=== PATIENT | male | born 1955 | race Caucasian/White ===

== ENCOUNTER 2019-06-11 07:32 | Inpatient (IN) ==
[2019-06-11] MEDS ORDERED: LIDOCAINE 2% JELLY 5 ML TUBE EXT ONE (08:07)
--- NOTE | 2019-06-11 08:37 | Emergency Department Note ---
History of Present Illness General Chief complaint: Urinary Symptoms Stated complaint: ABD PAIN, TROUBLE MAKING WATER Time Seen by Provider: 06/11/19 07:59 History of Present Illness Maximum Pain Intensity: 0 Patient is a 64-year-old male who presents the emergency department accompanied by his for evaluation of lower abdominal discomfort x1 week, and inability to void since last evening around 6 PM. Patient reports diffuse lower abdominal discomfort, right worse than left, for the last week. It has not been that painful. He denies that it changed his ability to eat or drink. He denies any associated nausea or vomiting. No changes in his bowel habits. Patient states that last time he urinated was 1800 last evening, he has subsequently only had a few trickles over the last 13 hours. He does report pressure and the urge to void. He had a small bowel movement this morning that was normal for him, he states that it was a little bit soft, but nonbloody and non-melanotic. He denies any chest pain, palpitations or shortness of breath. No urinary symptoms including dysuria, frequency or urgency prior to the retention that started last evening. He admittedly does not follow with the primary care provider, is unsure whether he could have any prostate issues. He denies any history of abdominal surgeries. He does have a history of PR and cardiac stents, he is supposed to be on multiple medications including aspirin, atorvastatin, Plavix, lisinopril and metoprolol, but stopped these medications because he states that he did not like how they made him feel. He did not talk to his doctor prior to stopping his medications. Home Medications Home Medications Medication Instructions Recorded Confirmed Type aspirin [Aspirin Low Dose] 0 mg PO DAILY 06/11/19 06/11/19 History Allergies Allergy/AdvReac Type Severity Reaction Status Date / Time No Known Allergies Allergy Verified 06/11/19 08:50 Past Med/Surg History Medical History Dyslipidemia (Chronic) Hypertension (Chronic) Coronary artery disease (Chronic) History of [place] (myocardial infarction) (Resolved) Surgical History History of tonsillectomy (Resolved) History of ankle surgery (Resolved) History of heart artery stent (Resolved) Family History Other CAD (coronary atherosclerotic disease) Prostate cancer Social History Feels Safe at Home: Yes Smoking Status: Current every day smoker Review of Systems A total of 10 systems reviewed and were otherwise negative Physical Exam Vital Signs Vital Signs - 24 hr 06/11/19 07:45 06/11/19 09:27 06/11/19 09:52 Temperature 36.5 C Temperature Source Oral Sepsis Recent Fever Within 48 Hours No Sepsis Action Taken by Nursing No Action Required Pulse Rate 20 L Pulse Rate [Finger] 76 78 Respiratory Rate 20 16 16 Respiratory Effort / Characteristics Non-Labored Non-Labored Respiratory Depth Normal Normal Blood Pressure 191/103 H Blood Pressure [Right Arm] 166/99 H 141/88 H Blood Pressure Mean 132 Blood Pressure Mean [Right Arm] 121 105 Pulse Oximetry 96 95 96 Oxygen Delivery Method Room Air Room Air 06/11/19 11:00 06/11/19 11:30 06/11/19 11:52 Temperature Temperature Source Sepsis Recent Fever Within 48 Hours Sepsis Action Taken by Nursing Pulse Rate 76 71 68 Pulse Rate [Finger] Respiratory Rate 18 14 Respiratory Effort / Characteristics Respiratory Depth Blood Pressure 159/100 H 155/94 H 154/100 H Blood Pressure [Right Arm] Blood Pressure Mean 119 114 118 Blood Pressure Mean [Right Arm] Pulse Oximetry 97 97 97 Oxygen Delivery Method Room Air Room Air Room Air CONSTITUTIONAL: Patient is a well-appearing 64-year-old male who is awake and alert and in no acute distress. EYES: Pupils equal, round, reactive to light and accommodation. EOMs intact without nystagmus. Sclera are anicteric. ENT: Tympanic membranes intact, with normal landmarks. External canals are clear. Oral and nasopharynx are clear. Mucous membranes are moist, no lesions, tongue and gums appear normal. CARDIOVASCULAR: Regular rate and rhythm, with normal S1 and S2, no murmur or gallop or rub is heard. No carotid bruits auscultated. No JVD. Peripheral pulses easy to palpable. RESPIRATORY: Breath sounds equal and clear to auscultation without wheezes, rales, or rhonchi heard. Full and equal chest expansion without accessory muscle use or retractions. GI: Bowel sounds are present. Abdomen is soft, mildly distended, tender to percussion through the out the right upper and right lower quadrants. He is tender to palpation in the right midabdomen, no guarding, rebound or rigidity. MUSCULOSKELETAL: Full range of motion of extremities x 4 with good strength. No cyanosis, edema, joint tenderness or swelling. No deformity. INTEGUMENTARY: No lesions or rash, normal skin turgor. NEUROLOGICAL: Alert, oriented, and cooperative. Cranial nerves, sensation and strength grossly intact. Pupils round, equal, and react to light, EOMs are full. LYMPH: No lymphadenopathy. Course The patient was seen and assessed as above. He presents the emergency department with inability to eat void times roughly 13 hours with lower abdominal discomfort. He was seen and assessed by myself in the exam room. Nursing staff performed a bedside bladder scan, with only 23 cc of urine in the bladder. Pendleton catheter was canceled. IV lock was initiated and laboratory studies were collected. CBC with differential, CMP and urinalysis were ordered. The patient did not provide a urine for analysis while in the emergency depar tment. Laboratory studies noted a normal white count at 6600, no left shift or bandemia. H&H is 14.7 and 41.7. The platelet count is 159,000. Electrolytes: Sodium 133, potassium 4.8, chloride 103, carbon dioxide 16, BUN 69 and creatinine 9.2. Transaminases are not elevated. A noncontrast CT scan of the abdomen and pelvis was ordered to evaluate for the patient's abdominal pain. Abnormal laboratory studies were discussed with attending physician, EKG was performed, and IV hydration was initiated. CT scan noted low-density fluid around the right kidney and in the right retroperitoneal space. There is associated mild right and moderate left hydronephrosis, and a diffusely thickened bladder. Findings were concerning for a right-sided forniceal rupture diffuse thickened bladder wall noted. Multifocal osteoblastic lesions seen throughout the visualized osseous structures suspicious for metastatic disease. There is no bowel wall thickening or obstruction. Normal appendix. Diagnostic imaging studies were discussed with attending physician, and all laboratory studies and imaging studies were reviewed with the patient and his spouse. Consultation was placed with Dr. Alexandre who was on-call for urology. Given the acute kidney injury, and findings on CT, he will take the patient to the OR for cystoscopy and stenting. Please refer to his urologic consultation for further information. I did discuss the patient with the [facility] Hospitalist Service for further care and management as an inpatient, the patient was reviewed with Dr. Velasquez. Administered Medications Discontinued Medications Sodium Chloride (Nss 1000ml) 1,000 mls @ 999 mls/hr IV .Q1H1M JOCELYN Stop: 06/11/19 10:39 Last Infusion: 06/11/19 11:25 Dose: 0 mls/hr Documented by: [id number] Admin: 06/11/19 09:45 Dose: 999 mls/hr Documented by: [id number] Iothalamate Meglumine (Cysto-Conray Ii) Confirm Administered Dose 250 ml .ROUTE .STK-MED ONE Stop: 06/11/19 12:32 Last Admin: 06/11/19 13:37 Dose: 150 ml Documented by: [id number] Lidocaine HCl (Xylocaine 2% Jelly) 5 ml EXT NOW ONE Stop: 06/11/19 08:08 Last Admin: 06/11/19 08:28 Dose: Not Given Documented by: [id number] Medical Decision Making Differential Diagnosis Differential diagnoses entertained included UTI, cystitis, acute urinary retention, pyelonephritis, renal colic, mass or malignancy, bowel obstruction, electrolyte or metabolic abnormality, among others. Medical Records Attestation: I reviewed the patient's medical records. Home Medications Current Medication List: was personally reviewed by me Laboratory Data Attestation: I reviewed the patient's lab results. Result diagrams: 06/11/19 08:45 06/11/19 08:45 Lab Results 06/11/19 06/11/19 Range/Units 08:45 08:45 WBC 6.61 (4.8-10.8) K/uL RBC 4.88 (4.7-6.1) M/uL Hgb 14.7 (14.0-18.0) g/dL Hct 41.7 L (42-52) % MCV 85.5 (80-100) fL MCH 30.1 (25-34) pg MCHC 35.3 (32-36) g/dL RDW Std Deviation 39.3 (36.4-46.3) fL RDW Coeff of Kurtis 12.7 (11.5-14.5) % Plt Count 159 (130-400) K/uL MPV 9.1 (7.4-10.4) fL Immature Gran % (Auto) 0.2 % Neut % (Auto) 76.5 % Lymph % (Auto) 13.3 % Lenoir % (Auto) 7.4 % Eos % (Auto) 2.0 % Baso % (Auto) 0.6 % Immature Gran # (Auto) 0.01 (0.00-0.02) K/uL Neut # (Auto) 5.06 (1.4-6.5) K/uL Lymph # (Auto) 0.88 L (1.2-3.4) K/uL Lenoir # (Auto) 0.49 (0.11-0.59) K/uL Eos # (Auto) 0.13 (0-0.5) K/uL Baso # (Auto) 0.04 (0-0.2) K/uL Sodium 133 L (136-145) mmol/L Potassium 4.8 (3.5-5.1) mmol/L Chloride 103 (98-107) mmol/L Carbon Dioxide 16 L (21-32) mmol/L Anion Gap 14.0 H (3-11) BUN 69 H (7-18) mg/dl Creatinine 9.20 H* (0.6-1.4) mg/dl Est Cr Clr Drug Dosing Not Reportable Est GFR ( Amer) 6.2 Est GFR (Non-Af Amer) 5.3 BUN/Creatinine Ratio 7.5 L (10-20) Glucose 89 (70-99) mg/dl Calcium 9.7 (8.5-10.1) mg/dl Total Bilirubin 0.6 (0.2-1) mg/dl AST 10 L (15-37) U/L ALT 14 (12-78) U/L Alkaline Phosphatase 106 (45-117) U/L Total Protein 6.8 (6.4-8.2) gm/dl Albumin 3.7 (3.4-5.0) gm/dl Globulin 3.1 (2.5-4.0) gm/dl Albumin/Globulin Ratio 1.2 (0.9-2) Imaging Data Attestation: I personally reviewed and interpreted this imaging study as follows: Radiologist's Impression: ABDOMEN AND PELVIS CT WITHOUT CONTRAST CT DOSE: 1588.51 mGy.cm HISTORY: RIGHT ABD PAIN X ONE WEEK TECHNIQUE: Multiaxial CT images of the abdomen and pelvis were performed without contrast. A dose lowering technique was utilized adhering to the principles of ALARA. COMPARISON STUDY: None. FINDINGS: Trace right pleural effusion. Small hiatus hernia. No pneumoperitoneum. No pneumatosis. A 1.4 cm sclerotic focus within the left femoral head. There are 2 sclerotic foci within the T12 vertebral body measuring 1.5 and 1.1 cm. There is a 1.5 severe sclerotic focus within the T10 vertebral body. A 2.2 cm sclerotic focus within the proximal left femur. Multiple additional sclerotic foci within the pelvic bones are noted. Findings are highly suspicious for osteoblastic metastatic disease. Subendocardial fat within the left ventricular apex consistent with an old infarct. There are are a few subcentimeter hypodense lesions within the liver with the largest in the caudate lobe measuring 9 mm. These are technically too small to characterize but favor cysts. The unenhanced spleen, adrenal glands, and pancreas are unremarkable. There is a punctate stone within the gallbladder. No retroperitoneal lymphadenopathy. The bladder is completely decompressed but demonstrates a diffusely thickened wall. There is moderate left hydroureteronephrosis to the level of the ureterovesical junction. There is mild right hydronephrosis. No ureteral stones. There is a 5.4 cm exophytic hypodense lesion within the lower pole the right kidney. This is technically indeterminate on this noncontrast study but favors a cyst. There is a moderate amount of low-density right perinephric fluid which extends into the right retroperitoneal space. There is also a moderate amount of fluid within the extraperitoneal space anterior to the bladder and tracking of the left retroperitoneal space. No renal calculi. Small amount of ascites seen scattered throughout the abdomen. No bowel wall thickening or obstruction. Colonic diverticulosis. Normal appendix. IMPRESSION: 1. Moderate low-density fluid primarily surrounding the right kidney and extending into the right retroperitoneal space. This extends into the extraperitoneal space anterior to the bladder and within the left retroperitoneal space. There is also a small amount of scattered ascites. Given the mild right and moderate left hydronephrosis to the level of the diffusely thickened bladder, findings favor a right-sided forniceal rupture resulting in the partial decompression of the right renal collecting system. Therefore, the fluid likely represents urine. 2. Diffusely thickened bladder wall. Follow-up cystoscopy recommended to exclude an underlying bladder mass resulting in the bilateral hydronephrosis. 3. Multifocal osteoblastic lesion seen scattered throughout the visualized osseous structures suspicious for metastatic disease. Follow-up bone scan is recommended for further evaluation. 4. Trace right pleural effusion. Blood Pressure Blood Pressure Findings: Elevated blood pressure Blood Pressure Disposition: further management by hospitalist MICHELLE Narrative See ED Course. Impression & Plan Acute renal failure, Perinephric fluid collection, Hydronephrosis, bilateral Discharge Plan Visit Data *Final* Discharge Date/Time: 06/11/19 11:54 Chief Complaint: Urinary Symptoms Stated Complaint: ABD PAIN, TROUBLE MAKING WATER ED Provider: Celia Land ED Midlevel Provider: Stoney Olivares Discharge Problem: Acute renal failure, Perinephric fluid collection, Hydronephrosis, bilateral Patient Disposition: Still a Patient Discharge Instructions Interventions: ED Discharge Assessment Last Done: 06/11/19 11:54
[2019-06-11 08:53] LABS: Basophils # (auto) 0.04 K/uL (0-0.2); Basophils % (auto) 0.6 %; Eosinophils # (auto) 0.13 K/uL (0-0.5); Hematocrit (blood only) 41.7 % (42-52); Hemoglobin 14.7 g/dL (14.0-18.0); Immature Granulocytes # (auto) 0.01 K/uL (0.00-0.02); Immature Granulocytes % (auto) 0.2 %; Lymphocytes # (auto) 0.88 K/uL (1.2-3.4); Lymphocytes % (auto) 13.3 %; Mean Corpuscular Hemoglobin 30.1 pg (25-34); Mean Corpuscular Hgb Conc 35.3 g/dL (32-36); Mean Corpuscular Volume 85.5 fL (80-100); Mean Platelet Volume 9.1 fL (7.4-10.4); Monocytes # (auto) 0.49 K/uL (0.11-0.59); Monocytes % (auto) 7.4 %; Neutrophils # (auto) 5.06 K/uL (1.4-6.5); Neutrophils % (auto) 76.5 %; Platelet Count 159 K/uL (130-400); RDW Coefficient of Variation 12.7 % (11.5-14.5); RDW Standard Deviation 39.3 fL (36.4-46.3); Red Blood Count 4.88 M/uL (4.7-6.1); White Blood Count 6.61 K/uL (4.8-10.8)
[2019-06-11 09:23] LABS: Alanine Aminotransferase 14 U/L (12-78); Albumin Globulin Ratio 1.2 (0.9-2); Albumin Level 3.7 gm/dl (3.4-5.0); Alkaline Phosphatase 106 U/L (45-117); Aspartate Aminotransferase 10 U/L (15-37); BUN Creatinine Ratio 7.5 (10-20); Bilirubin,Total 0.6 mg/dl (0.2-1); Blood Urea Nitrogen 69 mg/dl (7-18); Calcium 9.7 mg/dl (8.5-10.1); Carbon Dioxide 16 mmol/L (21-32); Chloride 103 mmol/L (98-107); Est GFR (African American) 6.2; Est GFR (Non-African American) 5.3; Globulin 3.1 gm/dl (2.5-4.0); Glucose 89 mg/dl (70-99); Potassium 4.8 mmol/L (3.5-5.1); Sodium 133 mmol/L (136-145); Total Protein 6.8 gm/dl (6.4-8.2)
[2019-06-11] MEDS ORDERED: SODIUM CHLORIDE 0.9% 1000ML 1,000 ML IV SCH (09:39)
--- NOTE | 2019-06-11 10:50 | CT Scan Report ---
ABDOMEN AND PELVIS CT WITHOUT CONTRAST CT DOSE: 1588.51 mGy.cm HISTORY: RIGHT ABD PAIN X ONE WEEK TECHNIQUE: Multiaxial CT images of the abdomen and pelvis were performed without contrast. A dose lo wering technique was utilized adhering to the principles of ALARA. COMPARISON STUDY: None. FINDINGS: Trace right pleural effusion. Small hiatus hernia. No pneumoperitoneum. No pneumatosis. A 1 .4 cm sclerotic focus within the left femoral head. There are 2 sclerotic foci within the T12 vertebr al body measuring 1.5 and 1.1 cm. There is a 1.5 severe sclerotic focus within the T10 vertebral body . A 2.2 cm sclerotic focus within the proximal left femur. Multiple additional sclerotic foci within the pelvic bones are noted. Findings are highly suspicious for osteoblastic metastatic disease. Suben docardial fat within the left ventricular apex consistent with an old infarct. There are are a few ponce bcentimeter hypodense lesions within the liver with the largest in the caudate lobe measuring 9 mm. T hese are technically too small to characterize but favor cysts. The unenhanced spleen, adrenal glands , and pancreas are unremarkable. There is a punctate stone within the gallbladder. No retroperitoneal lymphadenopathy. The bladder is completely decompressed but demonstrates a diffusely thickened wall. There is moderate left hydroureteronephrosis to the level of the ureterovesical junction. There is m ild right hydronephrosis. No ureteral stones. There is a 5.4 cm exophytic hypodense lesion within the lower pole the right kidney. This is technically indeterminate on this noncontrast study but favors a cyst. There is a moderate amount of low-density right perinephric fluid which extends into the righ t retroperitoneal space. There is also a moderate amount of fluid within the extraperitoneal space an terior to the bladder and tracking of the left retroperitoneal space. No renal calculi. Small amount of ascites seen scattered throughout the abdomen. No bowel wall thickening or obstruction. Colonic di verticulosis. Normal appendix. IMPRESSION: 1. Moderate low-density fluid primarily surrounding the right kidney and extending into the right ret roperitoneal space. This extends into the extraperitoneal space anterior to the bladder and within th e left retroperitoneal space. There is also a small amount of scattered ascites. Given the mild right and moderate left hydronephrosis to the level of the diffusely thickened bladder, findings favor a r ight-sided forniceal rupture resulting in the partial decompression of the right renal collecting sys tem. Therefore, the fluid likely represents urine. 2. Diffusely thickened bladder wall. Follow-up cystoscopy recommended to exclude an underlying bladde r mass resulting in the bilateral hydronephrosis. 3. Multifocal osteoblastic lesion seen scattered throughout the visualized osseous structures suspici ous for metastatic disease. Follow-up bone scan is recommended for further evaluation. 4. Trace right pleural effusion. Electronically signed by: Jose Luis Ahn M.D. 06/11/2019 10:48 AM
[2019-06-11] MEDS ORDERED: MIDAZOLAM HCL 1 MG/ML 2ML VIAL ONE (11:59)
[2019-06-11] MEDS ORDERED: LIDOCAINE HCL 2% 2 ML VIAL/AMP(20MG/ML) INFIL ONE (11:59)
[2019-06-11] MEDS ORDERED: fentaNYL citrate 100 MCG/2 ML VIAL ONE ×3 (11:59→16:29)
[2019-06-11] MEDS ORDERED: PROPOFOL IV EMULSION 10 MG/ML 20 ML VIAL IV ONE ×3 (11:59→12:56)
--- NOTE | 2019-06-11 12:03 | Anesthesiology Consultation ---
Date of Service June 11, 2019 Assessment & Plan (1) Encounter for pre-operative examination: History Surgery Operation Date: 06/11/19 12:00 Proposed Procedures p Cystoscopy - Eric Alexandre II, DO s Ureteral Stent Insertion/Removal - Eric Alexandre II, DO Height/Weight Weight: 107.1 kg Allergies Allergy/AdvReac Type Severity Reaction Status Date / Time No Known Allergies Allergy Verified 06/11/19 08:50 Medications Home Medications Medication Instructions Recorded Confirmed Last Taken aspirin [Aspirin Low Dose] 0 mg PO DAILY 06/11/19 06/11/19 Unknown Past Medical History Medical History Dyslipidemia (Chronic) Hypertension (Chronic) Coronary artery disease (Chronic) History of [place] (myocardial infarction) (Resolved) Past Family History Family History Other CAD (coronary atherosclerotic disease) Prostate cancer Past Surgical History Surgical History History of tonsillectomy (Resolved) History of ankle surgery (Resolved) History of heart artery stent (Resolved) Social History Smoking Status: Current every day smoker Physical Exam Vital Signs Last Vital Signs Temp 36.5 C 06/11/19 07:45 Pulse 68 06/11/19 11:52 Resp 14 06/11/19 11:30 BP 154/100 H 06/11/19 11:52 Pulse Ox 97 06/11/19 11:52 Testing Laboratory Results 06/11/19 08:45 06/11/19 08:45 Electrocardiogram Date: 06/11/19 NSR HR 77, LAD, inferior infarct age undetermined, anterolateral infarct age undetermined.
[2019-06-11] MEDS ORDERED: ONDANSETRON INJ 2 MG/ML 2 ML VIAL IV PRN ×2 (12:05→23:07)
[2019-06-11] MEDS ORDERED: ePHEDrine sulfate 50 MG/ML AMP IV PRN (12:05)
[2019-06-11] MEDS ORDERED: ATROPINE SULFATE 0.1 MG/ML 10ML SYR IV PRN (12:05)
[2019-06-11] MEDS ORDERED: HYDROmorphone INJ 1 MG/ML SYRINGE IV PRN (12:05)
--- NOTE | 2019-06-11 12:22 | Urology Consultation ---
Date of Consultation June 11, 2019 Assessment & Plan (1) Acute renal failure: See below (2) Hydronephrosis, bilateral: See Below (3) Perinephric fluid collection: Risks and benefits discussed at length with patient and were at bedside. Very concerning for obstruction. Unsure of source of obstruction. At this point also has lesions within bone and with strong family history of major concern for possible prostate cancer. Large amount of fluid along around the right kidney tracking down into the pelvis. Creatinine has jumped up to 9. Discussed options at length we will plan for cystoscopy with bilateral retrograde pyelograms and stent placements. And Pendleton placement. We will also plan to do rectal exam with possible biopsy depending on results. Patient understands all risks is willing to proceed. History of Present Illness Attending Physician: Eric Alexandre II, DO History of Present Illness Patient with sudden onset of acute urinary retention. Had started approximately 12 to 18 hours ago and continued up until this morning when he presented to the ER with inability to void. Has some bloating and discomfort. Had some general ill feelings. Patient has a very strong family history of prostate cancer with father dying of metastatic disease and 2 brothers who have had prostate cancer. Had bladder scan which showed scant urine within the bladder. Then went on to have CT scan and found to have bilateral severe hydro-with large amount of fluid around right kidney. Patient had small amount of liquid to this morning. No otherwise has been n.p.o. No nausea vomiting fevers or chills. Creatinine was found to be 9. Patient due to severity of issues was set up for urgent bilateral stent placement with possible biopsy Allergies Allergy/AdvReac Type Severity Reaction Status Date / Time No Known Allergies Allergy Verified 06/11/19 08:50 Home Medications Home Medications Medication Instructions Recorded Confirmed Type aspirin [Aspirin Low Dose] 0 mg PO DAILY 06/11/19 06/11/19 History Patient History Medical History Dyslipidemia (Chronic) Hypertension (Chronic) Coronary artery disease (Chronic) History of [place] (myocardial infarction) (Resolved) Surgical History History of tonsillectomy (Resolved) History of ankle surgery (Resolved) History of heart artery stent (Resolved) Family History Other CAD (coronary atherosclerotic disease) Prostate cancer Social History Feels Safe at Home: Yes Smoking Status: Current every day smoker Review of Systems Review of Systems: All systems reviewed & are unremarkable except as noted in HPI & below Physical Exam Physical Exam: General: Alert in no acute distress. HEENT: Normocephalic Atraumatic. Inspection normal. Cranial Nerves 2-12 Grossly intact. Normal inspection of face. Normal inspection of neck. Psychologic: Normal affect. Respiratory: Nonlabored. No use of accessory muscles. No tachypnea or dyspnea. Cardiovascular: No tachycardia Skin: Royal and Dry. No rashes or visible lesions. Extremities/Lymphatics: No edema Abdomen: Soft Non-distended. No rebound or guarding. obese Results & Data Vital Signs (Past 12 Hours) Vital Signs Temp Pulse Pulse Resp BP BP Pulse Ox 06/11/19 11:52 68 154/100 H 97 06/11/19 11:30 71 14 155/94 H 97 06/11/19 11:00 76 18 159/100 H 97 06/11/19 09:52 78 16 141/88 H 96 06/11/19 09:27 76 16 166/99 H 95 06/11/19 07:45 36.5 C 20 L 20 191/103 H 96 PG Care Time/CCT Total # of Minutes Spent Total Time Spent with Patient: Total time spent is greater than 50% in coordination of care (as documented) at patient's floor/unit and/or counseling patient:
[2019-06-11] MEDS ORDERED: IOTHALAMATE MEGLUMINE II 17.2% 250 ML VIAL ONE (12:31)
[2019-06-11] MEDS ORDERED: CEFAZOLIN 250 MG/ML 1 GM VIAL ONE (12:40)
[2019-06-11] MEDS ORDERED: DEXAMETHASONE SOD INJ 4 MG/ML VIAL ONE (12:57)
[2019-06-11] MEDS ORDERED: SUCCINYLCHOLINE 100MG/5ML SYR ONE (12:57)
[2019-06-11] MEDS ORDERED: ONDANSETRON INJ 2 MG/ML 2 ML VIAL ONE (12:57)
[2019-06-11] MEDS ORDERED: ePHEDrine sulfate 50 MG/ML SYR ONE (14:40)
[2019-06-11] MEDS ORDERED: ESMOLOL HCL INJ 10 MG/ML 10ML VIAL IV ONE (15:27)
[2019-06-11] MEDS ORDERED: NEOSTIGMINE METHYLSULFATE 5 MG/5 ML SYR ONE (15:35)
[2019-06-11] MEDS ORDERED: GLYCOPYRROLATE 0.2 MG/ML VIAL ONE (15:35)
--- NOTE | 2019-06-11 16:02 | Operative Report ---
PG Post Operative Report Pre & Post Diagnosis Operation Date: 06/11/19 12:00 Pre-Op Diagnosis: Hydronephrosis Post-Op Diagnosis: Hydronephrosis, Bladder Mass with full obstruction of bilateral ureters Procedure Operation Date: 06/11/19 12:00 Actual Procedures p Cystoscopy, transurethral resection of prostate; bilateral retrograde pyelogram; bilateral ureteral stent placement; left ureteroscopy with ureteral dilation;cystogram - Eric Alexandre II, s Transurethral Resection Bladder Tumor, large - Eric Alexandre II, DO Surgeon Eric Alexandre II, Lineman Apprentice None Estimated Blood Loss 20 Findings Consistent with Post-Op Diagnosis Large prostate with severe changes in the trigone and obliteration of the ureteral oriface bilateral Specimens Resection of prostate, bladder neck, and trigone. Drains 6 Fr multilength bilateral. [address] catheter. Anesthesia Type General Complications none Disposition Disposition: Recovery Room Indications Anuria with likely renal pelvis rupture and bilateral hydronephrosis. Risks and benefits discussed at length. Description of Procedure Patient was consented and brought back to the operating room. Patient was placed under anesthesia in the supine position and moved to the dorsal lithotomy position. Patient was prepped and draped in the regular sterile fashion. A time out was completed. A cystogram was completed with a 20 Fr catheter. No bladder rupture or issues were noted. A 30degree Cystoscope was placed into the bladder and the entire bladder was examined. The entire trigone and base were encompassed in a large mass extending from the prostate through the trigone. Neither UO were able to be identified. The mass easily bled and made visualization extremely difficult. The bladder was severely spasming the entire case. Patient had to be converted to full general anesthesia. A resection scope was selected and the mass was resected. This was sent for analysis. Within the mass, the UO on the left was able to be idenifed. The UO was cannulized with a catheter and a retrograde pyelogram was completed. A wire was then placed. Approximately 2 cm away from the bladder a severe stricture was encountered. Multiple attempts to pass this area failed. After exhausting options with catheters and wires, a flexible and rigid ureteroscope were utilized to gain access. The stricture was encountered and a wire was then placed and found to go to the renal pelvis. This was dilated. A 6 Fr multilength was then placed. The resection then continued on the right. The UO was once again resected and discovered. A catheter was placed and contrast injected. The wire was able to go to the pelvis. A significant urinoma was appreciated from what appears to be the lower pole. This filled with contrast from the retrograde pyelogram. With the wire in place, a 6 Fr Double J stent was placed to allow drainage. It was confirmed with fluoroscopy. With the stent in place, the bladder was emptied. The entire resection bed was inspected. All bleeding was controlled. All tissues were sent for analysis. The scope was removed. A 24 fr Hematuria catheter was placed and irrigation attached. The patient was cleaned, aroused from anesthesia, and transferred to the pacu in stable condition having tolerated the procedure well with no complications. I was present and participated in all aspects of the procedure. The patient will be monitored in the PACU until transferred. I attest to the content of the Intraoperative Record and any orders documented therein. Any exceptions are noted below.
--- NOTE | 2019-06-11 16:25 | History & Physical Report ---
Date of Service June 11, 2019 Assessment & Plan (1) Hydronephrosis, bilateral: Patient has acute urinary retention. Patient has creatinine of 9. This appears to be due to an obstruction, likely a malignancy as scans are showing: Multifocal osteoblastic lesion seen scattered throughout the visualized osseous structures suspicious for metastatic disease. Given history of prostate cacer, this is a concern Patient is going to OR for stent placement. (2) Perinephric fluid collection: due to problem 1 (3) Dyslipidemia: will hold medicine for now as patient is not taking anything currently. (4) Hypertension: B/P stable will monitor (5) Acute renal failure: creatinine is 9. will monitor closely. will recheck after procedure. dvt: scd History of Present Illness Chief Complaint: Inability to urinate Primary Care Provider: NO PCP This is a pleasant 64 yo male who comes into the hospital with acute urinary retention. Patient awoke this AM and had urgency to urinate. He went to the bathroom but he was unable to. This was accompanied by bloating and discomfort. Patient also noted generalized malaise. PATIENT DECIDED TO COME TO THE ER. He was bladdder scanned with no significant amount of urine in bladder. Patient then had a CT scan which showed bilateral hydrophrosis. Patient denies any fever chills nausea vomiting. Allergies Allergy/AdvReac Type Severity Reaction Status Date / Time No Known Allergies Allergy Verified 06/11/19 08:50 Home Medications Home Medications Medication Instructions Recorded Confirmed Type aspirin [Aspirin Low Dose] 0 mg PO DAILY 06/11/19 06/11/19 History Past Med/Surg History Medical History Dyslipidemia (Chronic) Hypertension (Chronic) Coronary artery disease (Chronic) History of OR (myocardial infarction) (Resolved) Surgical History History of tonsillectomy (Resolved) History of ankle surgery (Resolved) History of heart artery stent (Resolved) Family History Other CAD (coronary atherosclerotic disease) Prostate cancer Social History Feels Safe at Home: Yes Smoking Status: Current every day smoker Review of Systems Constitutional: + malaise; no sweats, no weakness, no weight loss and no weight gain Eyes: no blind spots and no discharge Ear, Nose, Mouth, Throat: no ear trauma and no tinnitus Respiratory: no cough and no pain on inspiration Cardiovascular: no chest pain and no chest pain with activity Gastrointestinal: as per Subjective / HPI Genitourinary: + as per Subjective / HPI and + difficulty urinating; no urinary frequency Integumentary: no acne, no rash, no skin ulcer and no erythema Neurologic: no falls and no paralysis Psychiatric: no behavioral changes Endocrine: no polydipsia Hematologic / Lymphatic: no coagulopathy Physical Exam Constitutional: WD/WN, vitals as above well developed and + ill appearing Eyes: PERRL, conjunctivae normal, anicteric sclerae ENMT: external ear and nose normal, oropharynx normal Neck: trachea midline, no thyromegaly Respiratory: normal respiratory effort, lungs clear to auscultation Cardiovascular: RRR, no murmur, no edema Gastrointestinal (Abdomen): normal bowel sounds, soft, nontender, no hepatosplenomegaly Musculoskeletal: no cyanosis or clubbing, extremities motor strength 5/5 Skin: no rashes, warm and dry Neurologic: normal touch/pain/proprioception Results & Data Vital Signs (Past 12 Hours) Vital Signs Temp Pulse Pulse Resp BP BP Pulse Ox 06/11/19 11:52 68 154/100 H 97 06/11/19 11:30 71 14 155/94 H 97 06/11/19 11:00 76 18 159/100 H 97 06/11/19 09:52 78 16 141/88 H 96 06/11/19 09:27 76 16 166/99 H 95 06/11/19 07:45 36.5 C 20 L 20 191/103 H 96 PG Care Time/CCT Total # of Minutes Spent Total Time Spent with Patient: Total time spent is greater than 50% in coordination of care (as documented) at patient's floor/unit and/or counseling patient: (1) Acute renal failure Acute renal failure type: unspecified Qualified Code(s): N17.9 - Acute kidney failure, unspecified
[2019-06-11] MEDS: fentaNYL citrate 100 MCG/2 ML VIAL IV PRN ×4 (16:30→16:45)
--- NOTE | 2019-06-11 16:54 | Anesthesiology Progress Note ---
Date of Service June 11, 2019 Anesthesia Post Procedure Vital Signs Vital Signs: Temp Pulse Pulse Pulse Resp BP BP 06/11/19 16:30 74 18 158/99 H 06/11/19 16:20 73 18 171/101 H 06/11/19 16:11 36.3 C L 75 18 167/99 H 06/11/19 11:52 68 154/100 H 06/11/19 11:30 71 14 155/94 H 06/11/19 11:00 76 18 159/100 H 06/11/19 09:52 78 16 141/88 H 06/11/19 09:27 76 16 166/99 H 06/11/19 07:45 36.5 C 20 L 20 191/103 H Pulse Ox 06/11/19 16:30 100 06/11/19 16:20 100 06/11/19 16:11 100 06/11/19 11:52 97 06/11/19 11:30 97 06/11/19 11:00 97 06/11/19 09:52 96 06/11/19 09:27 95 06/11/19 07:45 96 Pain Intensity Penis: Pain Intensity: 6 Transfer of Care Handoff Completed per policy Notes Mental Status: alert / awake / arousable and participated in evaluation Patient Amnestic to Procedure: Yes Nausea / Vomiting: adequately controlled Pain: adequately controlled Airway Patency, RR, SpO2: stable & adequate BP & HR: stable & adequate Hydration State: stable & adequate Anesthetic Complications: no major complications apparent and Pt Satisfied with anesthetic care
[2019-06-11] MEDS ORDERED: ALUMINUM/MAGNESIUM SUSP 30 ML UDC PO PRN (17:45)
[2019-06-11] MEDS ORDERED: MAGNESIUM HYDROXIDE SUSP 30 ML UDC PO PRN (17:45)
--- NOTE | 2019-06-11 18:45 | Fluoroscopy Report ---
FL retrograde includes kub CLINICAL HISTORY: RETROGRADE COMPARISON STUDY: CT of the abdomen and pelvis June 11, 2019. FLUOROSCOPY TIME: 15 minutes and 51 seconds. FLUOROSCOPIC IMAGES: 9. FINDINGS: These images demonstrate cannulation of the bilateral ureters with placement of bilateral u reteral stents which appear appropriately positioned. Bilateral hydronephrosis, left more severe than right, is noted. A round collection of contrast extending from the right inferior collecting system is noted. IMPRESSION: 1. Fluoroscopy provided for bilateral retrograde pyelograms and insertion of bilateral ureteral stent s. 2. Possible right-sided urinoma/contrast extravasation from forniceal rupture. Electronically signed by: Gunnar Mcgovern M.D. 06/11/2019 6:43 PM
[2019-06-11 19:45] LABS: BUN Creatinine Ratio 7.6 (10-20); Blood Urea Nitrogen 62 mg/dl (7-18); Calcium 8.7 mg/dl (8.5-10.1); Carbon Dioxide 21 mmol/L (21-32); Chloride 104 mmol/L (98-107); Est GFR (African American) 7.2; Est GFR (Non-African American) 6.2; Glucose 97 mg/dl (70-99); Sodium 134 mmol/L (136-145)
[2019-06-11] MEDS: ACETAMINOPHEN 325 MG TAB PO PRN (20:39)
[2019-06-11] MEDS: MoRPHine SULFATE 4 MG/ML 1 ML CARP\\VIAL IV PRN (23:14)
[2019-06-12] MEDS: MoRPHine SULFATE 4 MG/ML 1 ML CARP\\VIAL IV PRN ×3 (06:30→18:45)
--- NOTE | 2019-06-12 10:38 | Anesthesiology Progress Note ---
Date of Service June 12, 2019 Anesthesia Post Procedure Vital Signs Vital Signs: Temp Pulse Pulse Pulse Resp BP BP 06/12/19 07:32 36.9 C 79 18 119/69 06/12/19 03:04 36.7 C 81 16 102/66 06/11/19 23:25 36.8 C 85 18 135/87 06/11/19 20:25 36.6 C 87 18 06/11/19 19:33 36.5 C 93 H 18 06/11/19 18:25 36.7 C 78 16 06/11/19 17:58 36.5 C 73 18 06/11/19 16:50 36.1 C L 74 16 06/11/19 16:40 78 16 06/11/19 16:30 74 18 06/11/19 16:20 73 18 06/11/19 16:11 36.3 C L 75 18 06/11/19 11:52 68 154/100 H 06/11/19 11:30 71 14 155/94 H 06/11/19 11:00 76 18 159/100 H BP Pulse Ox 06/12/19 07:32 94 06/12/19 03:04 94 06/11/19 23:25 95 06/11/19 20:25 159/83 H 94 06/11/19 19:33 140/85 96 06/11/19 18:25 155/112 H 96 06/11/19 17:58 146/92 H 97 06/11/19 16:50 139/97 94 06/11/19 16:40 158/99 H 100 06/11/19 16:30 158/99 H 100 06/11/19 16:20 171/101 H 100 06/11/19 16:11 167/99 H 100 06/11/19 11:52 97 06/11/19 11:30 97 06/11/19 11:00 97 Notes Mental Status: alert / awake / arousable and participated in evaluation Nausea / Vomiting: adequately controlled Pain: adequately controlled Airway Patency, RR, SpO2: stable & adequate BP & HR: stable & adequate Hydration State: stable & adequate
[2019-06-12 11:31] LABS: BUN Creatinine Ratio 10.4 (10-20); Blood Urea Nitrogen 42 mg/dl (7-18); Calcium 8.4 mg/dl (8.5-10.1); Carbon Dioxide 22 mmol/L (21-32); Chloride 108 mmol/L (98-107); Est GFR (African American) 16.5; Est GFR (Non-African American) 14.2; Glucose 140 mg/dl (70-99); Potassium 4.4 mmol/L (3.5-5.1); Sodium 140 mmol/L (136-145)
--- NOTE | 2019-06-12 12:53 | Urology Progress Note ---
Date of Service June 12, 2019 Assessment & Plan (1) Acute renal failure: See below (2) Hydronephrosis, bilateral: See Below (3) Perinephric fluid collection: Patient required nearly 3 hours of anesthesia for procedure due to severe obstruction and difficulty with access and then placing stents. Stents were able to be placed. Patient has since tolerated well. Creatinine has drastically reduced was initially around 9.5 now down to 4. Patient is tolerating diet well. Patient has very strong family history of prostate cancer, new bone lesions, obstructive uropathy, and no other known major medical issues. New very concerning for prostate cancer. Pathology has been sent from resection in order to place stents. May need to consider bone biopsy if inconclusive. Would likely be candidate for androgen deprivation therapy. Will maintain catheter. Placed off of CBI and see if remains clear. Maintain stents for foreseeable future. Subjective Postop day 1 status post resection of obstructing mass at bladder neck with severe bilateral hydro-and likely calyx rupture on right with urinoma formation. Patient feeling well tolerating diet, ambulating, no return of bowel function yet, and very minimal discomfort. Occasional pain in waves. Patient was also found to have possible bone lesions. Patient is a very strong family history with 3 first-degree relatives having had prostate cancer. Father had of prostate cancer. Is tolerating catheter well. Has cleared with minimal CBI.Discomfort occasionally groin coming to back in waves not severe. Review of Systems Review of Systems: All systems reviewed & are unremarkable except as noted in HPI & below Physical Exam Physical Exam: General: Alert in no acute distress. HEENT: Normocephalic Atraumatic. Inspection normal. Cranial Nerves 2-12 Grossly intact. Normal inspection of face. Normal inspection of neck. Psychologic: Normal affect. Respiratory: Nonlabored. No use of accessory muscles. No tachypnea or dyspnea. Cardiovascular: No tachycardia Skin: [place] and Dry. No rashes or visible lesions. Extremities/Lymphatics: No edema Abdomen: Soft Non-distended. No rebound or guarding. : Pend[place] catheter in place draining very light pink urine. On minimal CBI. Constitutional: + obese Neck: + thick neck and + facial hair Psychiatric: Orientation: alert and oriented x 3 Results & Data Vital Signs (Past 12 Hours) Vital Signs Temp Pulse Resp BP Pulse Ox 06/12/19 11:16 36.6 C 73 16 95/56 L 94 06/12/19 07:32 36.9 C 79 18 119/69 94 06/12/19 03:04 36.7 C 81 16 102/66 94 PG Care Time/CCT Total # of Minutes Spent Total Time Spent with Patient: Total time spent is greater than 50% in coordination of care (as documented) at patient's floor/unit and/or counseling patient: (1) Acute renal failure Acute renal failure type: unspecified Qualified Code(s): N17.9 - Acute kidney failure, unspecified
--- NOTE | 2019-06-12 23:02 | Hospitalist Progress Note ---
Date of Service June 12, 2019 Assessment & Plan (1) Hydronephrosis, bilateral: Postop day 1 status post resection of obstructing mass at bladder neck with severe bilateral hydro-and likely calyx rupture on right with urinoma formation Patient had acute urinary retention. Patient had creatinine of 9. Multifocal osteoblastic lesion seen scattered throughout the visualized osseous structures suspicious for metastatic disease. Given history of prostate cancer, this is a concern. Awaiting pathology results. Will hold off oncology consult until biopsy has been completed. Creatinine has improved to 4. Will continue to monitor. (2) Perinephric fluid collection: due to problem 1 (3) Dyslipidemia: will hold medicine for now as patient is not taking anything currently. (4) Hypertension: B/P stable will monitor (5) Hyperkalemia: due to problem 1. Improved as renal function has improved. (6) Acute renal failure: creatinine is 4 will monitor closely. dvt: scd At discharge, will need to establish with PCP, Oncology and Urology. Subjective Patient reports feeling well. Patient is tolerating diet. Patient reports he would like cathetr removed if possible but understands that he likely will need it for the time being. Patient denies any nausea, vomiting. Review of Systems Review of Systems: All systems reviewed & are unremarkable except as noted in HPI & below Physical Exam Constitutional: WD/WN, vitals as above well developed Eyes: PERRL, conjunctivae normal, anicteric sclerae ENMT: external ear and nose normal, oropharynx normal Neck: trachea midline, no thyromegaly Respiratory: normal respiratory effort, lungs clear to auscultation Cardiovascular: RRR, no murmur, no edema Gastrointestinal (Abdomen): normal bowel sounds, soft, nontender, no hepatosplenomegaly Musculoskeletal: no cyanosis or clubbing, extremities motor strength 5/5 Skin: no rashes, warm and dry Neurologic: normal touch/pain/proprioception Results & Data Vital Signs (Past 12 Hours) Vital Signs Temp Pulse Resp BP Pulse Ox 06/12/19 15:16 36.5 C 74 18 110/69 93 06/12/19 11:16 36.6 C 73 16 95/56 L 94 PG Care Time/CCT Total # of Minutes Spent Total Time Spent with Patient: Total time spent is greater than 50% in coordination of care (as documented) at patient's floor/unit and/or counseling patient: (1) Acute renal failure Acute renal failure type: unspecified Qualified Code(s): N17.9 - Acute kidney failure, unspecified
[2019-06-13] MEDS: MoRPHine SULFATE 4 MG/ML 1 ML CARP\\VIAL IV PRN (00:17)
[2019-06-13 06:45] LABS: Blood Urea Nitrogen 26 mg/dl (7-18); Calcium 8.3 mg/dl (8.5-10.1); Carbon Dioxide 24 mmol/L (21-32); Chloride 109 mmol/L (98-107); Est GFR (African American) 42.2; Est GFR (Non-African American) 36.4; Glucose 96 mg/dl (70-99); Potassium 4.3 mmol/L (3.5-5.1); Sodium 141 mmol/L (136-145)
--- NOTE | 2019-06-13 07:26 | Anesthesiology Progress Note ---
Date of Service June 13, 2019 Anesthesia Post Procedure Vital Signs Vital Signs: Temp Pulse Resp BP Pulse Ox 06/13/19 07:01 36.6 C 69 16 102/67 93 06/12/19 23:05 37.2 C 83 18 119/74 93 06/12/19 15:16 36.5 C 74 18 110/69 93 06/12/19 11:16 36.6 C 73 16 95/56 L 94 06/12/19 07:32 36.9 C 79 18 119/69 94 Pain Intensity Penis: Pain Intensity: 6 Notes Mental Status: alert / awake / arousable and participated in evaluation Nausea / Vomiting: adequately controlled Pain: adequately controlled Airway Patency, RR, SpO2: stable & adequate BP & HR: stable & adequate Hydration State: stable & adequate Anesthetic Complications: no major complications apparent and Pt Satisfied with anesthetic care
[2019-06-13] MEDS: OXYCODONE HCL IR 5 MG TAB (IMMEDIATE RELEASE) PO PRN ×2 (08:44→16:43)
--- NOTE | 2019-06-13 10:49 | Urology Progress Note ---
Date of Service June 13, 2019 Assessment & Plan (1) Hydronephrosis, bilateral: 64 YO male POD #2 s/p bladder mass resection, bilateral ureteral stent placement, with ARF. Cr continues to improve and patient reports feeling increasingly better. Bladder Path pending. Light hematuria is persisting but patient is tolerating clamped CBI. Mckeon is bothersome, discussed that we will be maintaining this until outpatient follow up. No significant stent pain/abdominal discomfort. Will arrange outpatient follow up with Dr. Alexandre. Will continue to follow while inpatient. (2) Acute renal failure: (3) Perinephric fluid collection: Subjective 64 YO male POD #2 s/p bladder mass resection, bilateral ureteral stent placement, with ARF. Patient reports feeling much improved this morning. His Mckeon is bothersome and he requests removal. Hematuria is expectedly persisting. Light red without CBI. Mckeon patent. No fevers/chills overnight. Tolerating diet without nausea. Review of Systems Review of Systems: Per HPI. Physical Exam Physical Exam: WN/WD NAD. Resp effort normal. No JVD. Abd soft/nontender. : mckeon in place, patient, draining light red urine - no clot noted. A&Ox3, appropriate affect. Results & Data Vital Signs (Past 12 Hours) Vital Signs Temp Pulse Resp BP Pulse Ox 06/13/19 07:01 36.6 C 69 16 102/67 93 06/12/19 23:05 37.2 C 83 18 119/74 93 PG Care Time/CCT Total # of Minutes Spent Total Time Spent with Patient: Total time spent is greater than 50% in coordination of care (as documented) at patient's floor/unit and/or counseling patient: (1) Acute renal failure Acute renal failure type: unspecified Qualified Code(s): N17.9 - Acute kidney failure, unspecified
[2019-06-13] MEDS: ACETAMINOPHEN 325 MG TAB PO PRN (16:43)
--- NOTE | 2019-06-13 18:29 | Hospitalist Progress Note ---
Date of Service June 13, 2019 Assessment & Plan (1) Prostatic mass: PSA 31.2 Pending bladder neck mass pathology but concerning FHX, PSA and osteoblastic bone lesions for metastatic prostate cancer Bone scan to assess for extent of metastatic disease Follow up O/P urology, heme/onc (2) Acute renal failure: Post obstructive; now s/p POD#2 bladder neck mass resection and b/l ureteral stent placement Repeat BMP tomorrow and can likely be discharged following this. (3) Hydronephrosis, bilateral: Resolved s/p b/l ureteral stents, mass resection and mckeon catheter (to be removed by urology as outpatient) (4) Perinephric fluid collection: Right forniceal rupture noted on CT and retrograde pyelogram due to obstruction. Now s/p b/l ureteral stents (5) Coronary artery disease: Remote history of stent placed in 2012. No recent symptoms. Patient without medical insurance for the last 5 years therefore compliance has been an issue. Will restart on atorvastatin and metoprolol. ASA restart when ok by surgery. 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 (6) DVT prophylaxis: - chemical prophylaxis contraindicated due to ongoing hematuria - SCDs ordered (7) Discharge planning issues: Code - full Dispo - plan on home tomorrow pending improving renal function. Subjective Patient seen in the afternoon. Main concern if irritation from mckeon catheter. Light hematuria and Mckeon catheter. Denies any back pain, nausea, vomiting. Feels he is ready to be discharged home. Review of Systems Review of Systems: All systems reviewed & are unremarkable except as noted in HPI & below Physical Exam Constitutional: WD/WN, vitals as above Respiratory: normal respiratory effort, lungs clear to auscultation Cardiovascular: RRR, no murmur, no edema Gastrointestinal (Abdomen): normal bowel sounds, soft, nontender, no hepatosplenomegaly Musculoskeletal: no cyanosis or clubbing, extremities motor strength 5/5 Neurologic: moves all extremities Motor/Sensory: no sensory deficit Psychiatric: A+Ox3, euthymic affect Results & Data Vital Signs (Past 12 Hours) Vital Signs Temp Pulse Resp BP Pulse Ox 06/13/19 14:59 98.1 F 74 16 128/79 95 06/13/19 07:01 97.9 F 69 16 102/67 93 PG Care Time/CCT Total # of Minutes Spent Total Time Spent with Patient: Total time spent is greater than 50% in coordination of care (as documented) at patient's floor/unit and/or counseling patient: (1) Acute renal failure Acute renal failure type: unspecified Qualified Code(s): N17.9 - Acute kidney failure, unspecified
[2019-06-13 23:47] VITALS: O2SAT 96
[2019-06-14 06:05] LABS: Hemoglobin 13.7 g/dL (14.0-18.0); Mean Corpuscular Hemoglobin 29.5 pg (25-34); Mean Corpuscular Hgb Conc 33.4 g/dL (32-36); Mean Corpuscular Volume 88.4 fL (80-100); Mean Platelet Volume 9.1 fL (7.4-10.4); Platelet Count 195 K/uL (130-400); RDW Coefficient of Variation 13.1 % (11.5-14.5); RDW Standard Deviation 41.8 fL (36.4-46.3); Red Blood Count 4.64 M/uL (4.7-6.1); White Blood Count 8.76 K/uL (4.8-10.8)
[2019-06-14 06:38] LABS: BUN Creatinine Ratio 11.7 (10-20); Blood Urea Nitrogen 18 mg/dl (7-18); Calcium 9.1 mg/dl (8.5-10.1); Carbon Dioxide 28 mmol/L (21-32); Chloride 106 mmol/L (98-107); Est GFR (African American) 52.5; Est GFR (Non-African American) 45.3; Glucose 99 mg/dl (70-99); Potassium 3.9 mmol/L (3.5-5.1); Sodium 140 mmol/L (136-145)
[2019-06-14] MEDS ORDERED: ATORVASTATIN 40 MG TAB PO SCH (09:00)
[2019-06-14] MEDS ORDERED: METOPROLOL SUCC 25MG EXT REL TAB PO SCH (09:00)
--- NOTE | 2019-06-14 11:49 | Nuclear Medicine Report ---
NM bone scan whole body CLINICAL HISTORY: Abnormal CT scan with blastic lesions. Evaluate for metastatic disease. COMPARISON STUDY: CT scan dated 06/11/2019 FINDINGS: The patient was injected with 27.4 mCi of technetium 99m MDP. Three-hour delayed whole-body images we re acquired There are multiple foci of abnormal increased activity, corresponding to the sclerotic lesions on the prior CT scan. 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 Lesions involve the proximal right fibula, left hip including a prominent intratrochanteric lesion, the sacrum, multiple pelvic lesions, multiple spine lesions, multiple rib lesions, as well as a proximal left humeral les ion. IMPRESSION: 1. Multiple foci of abnormal increased activity consistent with metastatic disease Electronically signed by: Neo Gonzalez M.D. 06/14/2019 11:47 AM
--- NOTE | 2019-06-14 13:45 | Urology Progress Note ---
Date of Service June 14, 2019 Assessment & Plan (1) Hydronephrosis, bilateral: 64 YO male POD #3 s/p bladder mass resection, bilateral ureteral stent placement, with ARF. Discussed with Dr. Alexandre. Family at bedside today. Discussed elevated PSA of 31.2. Discussed bone scan consistent with metastatic disease. High likelihood of prostate cancer. Discussed next steps. Bladder pathology is pending. Patient is ready for discharge - we will continue to closely watch for his pathology results in the coming days. Rx sent Casodex to outpatient pharmacy for patient to begin upon our phone call later this week with pathology results. Patient and family voice good understanding not to take Rx until instructed to do so. Anticipate also coordinating timely outpatient Lupron injection in our outpatient clinic. Close outpatient follow up with Dr. Alexandre next week. Recommend referral to outpatient heme/onc as well as rad/onc. Thank you for allowing us to participate in the inpatient care of Mr. Stern. Please contact our service if we can assist further during hospitalization. Subjective 64 YO male POD #3 s/p bladder mass resection, bilateral ureteral stent placement, with ARF. Patient reports feeling well today. Pendleton remains bothersome. Hematuria is persisting. No fevers/chills. No nausea/vomiting. Pain controlled. Review of Systems Review of Systems: Per HPI. Physical Exam Physical Exam: NAD. Resp effort normal. No JVD. Abd soft/nontender. : Pendleton in place, patent, draining pink urine. A&Ox3, appropriate affect. Results & Data Vital Signs (Past 12 Hours) Vital Signs Temp Pulse Resp BP Pulse Ox 06/14/19 07:13 36.6 C 78 16 125/78 96 PG Care Time/CCT Total # of Minutes Spent Total Time Spent with Patient: Total time spent is greater than 50% in coordination of care (as documented) at patient's floor/unit and/or counseling patient:
--- NOTE | 2019-06-14 14:43 | Discharge Summary ---
Date of Service June 14, 2019 Admission HPI Per Admitting Provider This is a pleasant 64 yo male who comes into the hospital with acute urinary retention. Patient awoke this AM and had urgency to urinate. He went to the bathroom but he was unable to. This was accompanied by bloating and discomfort. Patient also noted generalized malaise. PATIENT DECIDED TO COME TO THE ER. He was bladdder scanned with no significant amount of urine in bladder. Patient then had a CT scan which showed bilateral hydrophrosis. Patient denies any fever chills nausea vomiting. Admission Exam Per Admitting Provider Constitutional: WD/WN, vitals as above well developed and + ill appearing Eyes: PERRL, conjunctivae normal, anicteric sclerae ENMT: external ear and nose normal, oropharynx normal Neck: trachea midline, no thyromegaly Respiratory: normal respiratory effort, lungs clear to auscultation Cardiovascular: RRR, no murmur, no edema Gastrointestinal (Abdomen): normal bowel sounds, soft, nontender, no hepatosplenomegaly Musculoskeletal: no cyanosis or clubbing, extremities motor strength 5/5 Skin: no rashes, warm and dry Neurologic: normal touch/pain/proprioception Principal Diagnosis Bladder neck mass (concerning for prostate cancer with pathology pending at this time) Bilateral hydronephrosis Acute kidney injury Right forniceal rupture 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 Discharge Exam Constitutional WD/WN, vitals as above Respiratory normal respiratory effort, lungs clear to auscultation Cardiovascular RRR, no murmur, no edema Gastrointestinal (Abdomen) normal bowel sounds, soft, nontender, no hepatosplenomegaly Musculoskeletal no cyanosis or clubbing, extremities motor strength 5/5 Neurologic moves all extremities Motor/Sensory: no sensory deficit Psychiatric A+Ox3, euthymic affect Discharge Data Allergies Allergy/AdvReac Type Severity Reaction Status Date / Time No Known Allergies Allergy Verified 06/11/19 08:50 Consultations 06/13/19 07:54 Consult Urology Routine 06/13/19 15:04 Consult Case Management - Discharge Planning Routine Procedures Performed Operation Date: 06/11/19 12:00 Actual Procedures p Cystoscopy, bilateral retrograde pyelogram; left ureteroscopy with ureteral dilation;cystogram - Eric Alexandre II, DO s Transurethral Resection Bladder Tumor, large - Eric Alexandre II, DO s transurethral resection of prostate - Eric Alexandre II, DO s bilateral urteral stent placement(Bilateral) - Eric Alexandre II, DO Ordered Studies 06/11/19 09:08 CT abd pelvis wo con Stat 06/11/19 11:50 FL retrograde includes kub Routine Hospital Course (1) Acute renal failure: Post obstructive; now s/p POD#3 bladder neck mass resection and b/l ureteral stent placement Renal function continues to improve. Recommend repeat BMP with PCP follow up (2) Hydronephrosis, bilateral: Resolved s/p b/l ureteral stents, mass resection and mckeon catheter (to be removed by urology as outpatient) (3) Prostatic mass: Highly suspected metastatic prostate cancer with strong FHx, PSA 31.2 and osteoblastic bone lesions Bone scan confirmed widespread metastatic disease - concerning left femoral neck for possible future pathological fracture discussed with patient Follow up O/P urology -> referral to radiation and oncology once pathology confirmed (4) Perinephric fluid collection: Right forniceal rupture noted on CT and retrograde pyelogram due to obstruction. Now s/p b/l ureteral stents. No pain on exam. (5) Coronary artery disease: Remote history of stent placed in 2012. No recent symptoms. Patient without medical insurance for the last 5 years therefore compliance has been an issue. Will restart on atorvastatin and metoprolol. ASA restart in 2 days and patient knows to call urology if worsening hematuria and reduced urine output. No need to restart plavix until follow up with his manager grant - recommended patient Total Time Total Time Spent Total Time Spent (In Minutes): 55 Total Time Includes: Examination of the Patient, Discharge Planning, Medication Reconciliation and Communication With Other Providers Discharge Plan Discharge Items Patient Disposition: Home - Self-Care Reason For Visit: URINARY OBSTRUCTION Discharge Diagnosis: Bladder neck mass (concerning for prostate cancer with pathology pending at this time) causing bilateral hydronephrosis (obstruction of urine to both kidneys), acute kidney injury and right forniceal rupture Metastatic (suspected prostate) cancer with bone metastatic disease Condition on Discharge: Fair Activity: Resume your previous activity Non-emergency contact: Primary Care Provider and Urologist Call non-emergency contact if: you have any medication questions and your symptoms worsen Follow-up/Referrals: Randa Pyle DO [Primary Care Provider] - 10/04/19 2:30 pm (Please, follow up at [facility] with Dr. Pyle's associate, Adrienne Campbell PA-C, on ThursdayJune 17 at 3:00 pm (arrive 2:30 pm). They will be your new primary care providers. *The office is located next to [facility]. The office phone number is [phone].) Eric Alexandre II, DO [Physician] - (Please, follow up at [facility] Urology Office with Dr. Alexandre. *A rep from this office will call you with the appointment information. The office is located at [address] [facility] in [place]. If you have any questions, call the office at [phone].) Diet: Heart Healthy Addtl Attending Provider Instructions: You were diagnosed with urinary obstruction due to a bladder neck mass causing rupture of the right kidney fornix, bilateral hydronephrosis and acute kidney injury. This was treated with surgical resection of the mass, bilateral stents in the ureters and mckeon catheter insertion. This should be kept in place until follow up with urology (please call clinic on number above if no appointment arranged in the next 7 days). Pathology of the bladder mass is pending at this time and will be discussed at your urology follow up. CT scan concerning for metastatic disease to your bones from primary prostate cancer and Casodex has been ordered but only to be started once called by urology regarding tissue diagnosis. Subsequent bone scan confirmed widespread disease to your bones. You will follow up with urology regarding this but recommend starting vitamin D supplementation as shown below (over the counter). Aspirin can be resumed for your coronary artery disease after 2 days. If having increasing blood in mckeon catheter please call your urologist. Recommend staying off plavix until following up with your manager grant to discuss whether this is still required retirement. Your other heart medication has been restarted with atorvastatin at half the prior dose given fatigue possibly related to this medication. Pending Studies at Discharge: Yes (Pathology of bladder neck mass, f/u urology clinic) Stand-Alone Forms: [facility] [employer] Medications and DC Order Prescriptions: New aspirin 81 mg tablet,delayed release (DR/EC) 81 mg PO DAILY Qty: 30 RF: 0 bicalutamide [Casodex] 50 mg tablet 50 mg PO DAILY Qty: 30 RF: 0 atorvastatin 40 mg tablet 40 mg PO HS Qty: 30 RF: 0 metoprolol succinate 25 mg tablet extended release 24 hr 12.5 mg PO DAILY Qty: 15 RF: 0 cholecalciferol (vitamin D3) [Vitamin D3] 2,000 unit capsule 2,000 units PO DAILY Qty: 30 RF: 0 Discontinued aspirin [Aspirin Low Dose] 81 mg Tablet,Delayed Release (Dr/Ec) PO DAILY RF: 0 Discharge Orders: Discharge Order (Routine); Ordered 06/14/19 Ordered By: Gonzales Dotson/Other Patient Handouts: Leg Bag Care Dc Admission Data Admit Date/Time: 06/11/19 16:26 Attending Provider: Gonzales Garces Admit Provider: Adrian Velasquez Primary Care Provider: Randa Pyle Other Providers: Allen Villagomez ; Barrett Rod ; Job Bernard I. ; Chacorta Macedo ; Vilma Abreu ; Eric Alexandre II ; Brenda Good I ; Radha Sandoval Other Interventions: Discharge Summary Assessment (RN) Last Done: 06/14/19 15:25 DC Date/Time DO NOT enter until pt leaves facility: 06/14/19 16:09
[2019-06-14 15:20] VITALS: TEMP 98.1
[2019-06-14 15:28] VITALS: BP 159/83; PULSE 74
== END 2019-06-14 16:09 | disposition home or self-care (01) | DRG 713 ==
LOC: ED 07:32 → OR 11:54 → 3N 16:26 → SUATTDRO 16:26

== ENCOUNTER 2019-10-03 10:27 | Inpatient (IN) ==
[2019-10-03 11:18] LABS: Basophils # (auto) 0.05 K/uL (0-0.2); Basophils % (auto) 0.8 %; Eosinophils # (auto) 0.07 K/uL (0-0.5); Eosinophils % (auto) 1.1 %; Hematocrit (blood only) 35.7 % (42-52); Hemoglobin 12.3 g/dL (14.0-18.0); Immature Granulocytes # (auto) 0.05 K/uL (0.00-0.02); Immature Granulocytes % (auto) 0.8 %; Lymphocytes # (auto) 0.87 K/uL (1.2-3.4); Lymphocytes % (auto) 13.5 %; Mean Corpuscular Hemoglobin 29.1 pg (25-34); Mean Corpuscular Hgb Conc 34.5 g/dL (32-36); Mean Corpuscular Volume 84.4 fL (80-100); Mean Platelet Volume 10.3 fL (7.4-10.4); Monocytes # (auto) 0.45 K/uL (0.11-0.59); Neutrophils # (auto) 4.94 K/uL (1.4-6.5); Neutrophils % (auto) 76.8 %; Platelet Count 118 K/uL (130-400); RDW Coefficient of Variation 14.5 % (11.5-14.5); Red Blood Count 4.23 M/uL (4.7-6.1); White Blood Count 6.43 K/uL (4.8-10.8)
[2019-10-03] MEDS ORDERED: SODIUM CHLORIDE 0.9% 1000ML 1,000 ML IV ONE ×2 (11:26→12:32)
[2019-10-03 11:37] LABS: BUN Creatinine Ratio 14.6 (10-20); Calcium 8.4 mg/dl (8.5-10.1); Creatinine Clr Calc Pharmacy 32.4 ml/min; Est GFR (African American) 27.9; Potassium 2.9 mmol/L (3.5-5.1)
[2019-10-03 11:39] LABS: Albumin Globulin Ratio 0.7 (0.9-2); Bilirubin,Total 1.2 mg/dl (0.2-1); Globulin 4.2 gm/dl (2.5-4.0); Total Protein 7.2 gm/dl (6.4-8.2)
--- NOTE | 2019-10-03 13:07 | CT Scan Report ---
CT abd pelvis wo con CLINICAL HISTORY: 64 years-old Male presenting with nausea, vomiting, stent placed. TECHNIQUE: Multidetector CT of the abdomen and pelvis was performed without the use of intravenous co ntrast. IV contrast: None. One or more dose lowering techniques were used consistent with the princip les of ALA (as low as reasonably achievable), including automatic exposure control, mA or kV adjust ment to individual patient size, and/or use of iterative reconstruction. COMPARISON: 06/23/2019. CT DOSE (mGy.cm): The estimated cumulative dose is 1045.83 mGy.cm. FINDINGS: Addresser topogram: Left ureteral stent. Pendleton catheter in place. Lung bases: Normal heart size. Coronary artery and aortic valve calcification. No pericardial or pleu ral effusion. Minimal dependent changes likely atelectasis. Liver: Congenital hypoplasia of the medial segments of the left hepatic lobe. Normal liver density. Biliary: No gross biliary ductal dilatation allowing for noncontrast technique. Gallbladder contains gallstones. Pancreas: Mild parenchymal atrophy. Spleen: Normal noncontrast appearance. Adrenal glands: Normal noncontrast appearance. Kidneys and ureters: Left ureteral stent in place with left urothelial thickening and mild distention of the left renal pelvis and left ureter. No hydronephrosis. Suspected flaccid left renal collecting system. No calcification along the course of the left ureteral stent. Normal noncontrast appearance of the renal parenchyma. No nephrolithiasis. Right ureter mildly distended with trace right urothelia l thickening. Bladder: Circumferential bladder wall thickening. Pendleton catheter and completely decompresses the urin hannah bladder. Focus of gas within the bladder lumen related to the catheter. Pelvic organs: Mild prostatic enlargement likely secondary to benign prostatic hyperplasia. Bowel: Diverticulosis of the sigmoid and distal descending colon without wall thickening or pericolon ic inflammatory change. The appendix is normal. No bowel obstruction. Small sliding type hiatal herni a. Mild wall thickening of the distal esophagus may be present. Peritoneal cavity: No free fluid or intraperitoneal gas. Trace retroperitoneal fluid or inflammatory change primarily tracking along the left ureter, left pelvic sidewall, and presacral regions. No retr operitoneal gas. Lymph nodes: No gross lymphadenopathy allowing for noncontrast technique. Vasculature: Atherosclerosis of the normal caliber abdominal aorta. Abdominal wall: Normal. Musculoskeletal: Degenerative changes of the spine. Sclerotic osseous lesion in the left femoral neck significantly increased in size from prior. Lesion in the left femoral head is similar to prior. New or increased size of the left acetabular lesion with multiple additional pelvic lesions with greater sclerosis and on prior exam. Size of the vast majority of the lesions are similar though sclerosis i s increased. Multiple lesions also evident in the vertebral bodies as on prior exam. Lesions also not ed in the ribs. IMPRESSION: 1. Multifocal sclerotic osseous lesions, which are largely stable from prior exam though increasingl y sclerotic. This may represent posttreatment change of underlying osseous metastatic disease. 2. Circumferential bladder wall thickening likely indicates chronic bladder outlet obstruction. This is likely accompanied by chronic reflux uropathy and secondary to prostatomegaly. 3. Left ureteral stent in place with a flaccid left renal collecting system. No convincing evidence of hydronephrosis. Inflammatory changes of the left renal collecting system are most likely reactive to the presence of the stent. Correlate with urinalysis to exclude upper tract infection. 4. No gross evidence of an obstructing calculus. Limited evaluation for underlying neoplasm. 5. Diverticulosis coli. No diverticulitis. 6. Cholelithiasis. ACT 112: Negative or not required by law. Electronically signed by: Mervin Motley M.D. 10/03/2019 1:06 PM
[2019-10-03] MEDS ORDERED: POTASSIUM CHLORIDE 20 MEQ TABCR PO STA (13:13)
[2019-10-03] MEDS ORDERED: MAGNESIUM SULFATE / D5W 1 GM/100 ML BAG IV ONE (13:13)
[2019-10-03 13:28] LABS: Appearance Urine Cloudy (Clear); Color Urine Red; Specific Gravity Urine 1.018 (1.000-1.030); Sulfosalicylic Acid Urine Positive (Negative)
[2019-10-03 13:32] LABS: RBC Urine >30 /hpf (0-4)
[2019-10-03 13:33] LABS: WBC Urine >30 /hpf (0-5)
[2019-10-03 13:35] LABS: Bacteria Urine Negative (Negative)
--- NOTE | 2019-10-03 14:32 | Emergency Department Note ---
Entered by Shannan Grace acting as a scribe for Mak Sidhu DO History of Present Illness General Chief complaint: Vomiting Stated complaint: VOMITING,S/P SURG 09/29 FOR CATHETER REMOVAL Source: patient History of Present Illness Onset (ago): day(s) 4 Location: head (Vomiting) Pain Consistency: + other (persistent) Maximum Pain Intensity: 1 Quality: + other (vomiting) Exacerbated By: + eating Associated symptoms: + loss of appetite, + nausea/vomiting and + other (Positive hematuria. Negative abdomial pain, back pain. ); no chest pain and no shortness of breath The patient is a 64 year old male presenting to the Emergency Department complaining of persistent vomiting starting 4 days ago. The patient reports that he has been vomiting. He states that he has lost his appetite and has only been drinking fluids which he able to keep down. He notes that eating food worsens his vomiting. The patient reports that he had bilateral kidney stents placed by Dr. Su urologist. He states that on 09/29/2019 his stents were removed and that his left sided stent was then replaced. He explains that since then, he has been experiencing hematuria. He notes that his Pendleton catheter has been draining blood since his operation on 09/29/2019. He adds that he regularly takes Coumadin, with the exception of this morning, for a blood clot in the lower ventricle of his heart found in July 2019. The patient denies abdominal pain, chest pain, shortness of breath and back pain. Home Medications Home Medications Medication Instructions Recorded Confirmed Type atorvastatin 80 mg tablet 80 mg PO QAM 06/17/19 10/03/19 History leuprolide (4 month) 30 mg (4 30 mg IM Q16W 07/13/19 10/03/19 History month) intramuscular syringe kit lisinopril 10 mg tablet 20 mg PO QAM 07/13/19 10/03/19 History sildenafil 50 mg tablet 50 mg PO DAILY PRN 07/13/19 10/03/19 History denosumab 120 mg/1.7 mL (70 mg/mL) 120 mg SQ MONTHLY ml 07/20/19 10/03/19 History subcutaneous solution metoprolol tartrate 25 mg PO QAM 07/22/19 10/03/19 History aspirin 81 mg PO QAM 07/23/19 10/03/19 History bicalutamide [Casodex] 50 mg PO QAM 07/23/19 10/03/19 History cholecalciferol (vitamin D3) 2,000 units PO QAM 07/23/19 10/03/19 History [Vitamin D3] warfarin 2 mg tablet 2 mg PO UD 08/08/19 10/03/19 History abiraterone [Zytiga] 1,000 mg PO DAILY@1500 09/22/19 10/03/19 History cephalexin [Keflex] 500 mg PO BID #10 cap 09/29/19 10/03/19 Rx oxycodone-acetaminophen [Percocet] 1 tab PO Q8H PRN #7 tab 09/29/19 10/03/19 Rx sulfamethoxazole-trimethoprim 1 tab PO BID 09/29/19 10/03/19 History Allergies Allergy/AdvReac Type Severity Reaction Status Date / Time No Known Allergies Allergy Verified 10/03/19 11:53 Past Med/Surg History Medical History Bilateral hydronephrosis (Acute) Coronary artery disease (Chronic) Dyslipidemia (Chronic) History of NH (myocardial infarction) (Resolved) 2012 Hypertension (Chronic) Left ventricular thrombus ON WARFARIN Metastatic adenocarcinoma to prostate (Chronic) 06/11/19 Prostate cancer metastatic to bone (Chronic) s/p radiation treatment Surgical History History of ankle surgery (Resolved) Left ankle surgery relate to fracture in childhood; History of cardiac cath 2012 - [place] - 1 stent - Follows w/ Dr. Owens History of heart artery stent (Resolved) One stent;2012 History of prostate biopsy History of surgery 06/11/19- Dr. Alexandre ; Cystoscopy, transurethral resection of prostate; bilateral retrograde pyelogram; bilateral ureteral stent placement; left ureteroscopy with ureteral dilation;cystogram, Transurethral Resection Bladder Tumor, large History of tonsillectomy (Resolved) Family History Mother , in her 70s Coronary heart disease Hx of CABG Hypertension Father , 76yo Prostate cancer Brother Prostate cancer Hypertension Brother Diabetes Hypertension Sister Unknown family medical history Other CAD (coronary atherosclerotic disease) No family history of adverse response to anesthesia Social History Preferred Language: Martiniquais Communication Ability: Effective Visual Impairment: No Limitations Hearing Ability: Normal House Player Required: No Beliefs That Will Affect Care: None marital status: Current Living Situation: Family current occupational status: retired 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 and A total of 10 systems reviewed and were otherwise negative Physical Exam Vital Signs Vital Signs - 24 hr 10/03/19 10:43 10/03/19 11:10 10/03/19 11:12 Temperature Temperature Source Oral Pulse Rate 96 H Pulse Rate [Apical] 68 Pulse Rhythm [Apical] Regular Pulse Strength [Apical] Normal Respiratory Rate 20 18 Respiratory Effort / Characteristics Non-Labored Non-Labored Spontaneous Respiratory Depth Normal Normal Respiratory Pattern Regular Blood Pressure 106/72 Blood Pressure [Right Arm] 106/62 Blood Pressure Mean 83 Blood Pressure Mean [Right Arm] 76 Blood Pressure Position [Right Arm] Lying Pulse Oximetry 95 97 97 Oxygen Delivery Method Room Air Room Air Room Air Sepsis Recent Fever Within 48 Hours No Sepsis Action Taken by Nursing No Action Required 10/03/19 12:05 10/03/19 13:31 Temperature 37 C Temperature Source Oral Pulse Rate Pulse Rate [Apical] 82 78 Pulse Rhythm [Apical] Regular Pulse Strength [Apical] Normal Respiratory Rate 20 20 Respiratory Effort / Characteristics Non-Labored Spontaneous Respiratory Depth Normal Respiratory Pattern Blood Pressure Blood Pressure [Right Arm] 127/84 143/98 H Blood Pressure Mean Blood Pressure Mean [Right Arm] 98 113 Blood Pressure Position [Right Arm] Lying Pulse Oximetry 97 99 Oxygen Delivery Method Room Air Sepsis Recent Fever Within 48 Hours Sepsis Action Taken by Nursing GENERAL: Patient is sitting up in bed. Chronically ill appearing. Disheveled. Non-toxic. EYE EXAM: normal conjunctiva. OROPHARYNX: no exudate, no erythema, lips, buccal mucosa, and tongue normal and mucous membranes are dry. NECK: supple, no nuchal rigidity, no adenopathy, non-tender LUNGS: Clear to auscultation. Normal chest wall mechanics HEART: no murmurs, S1 normal and S2 normal ABDOMEN: abdomen soft, non-tender, normo-active bowel sounds, no masses, no rebound or guarding. : Pendleton in place with dark blood present in bag. BACK: Back is symmetrical on inspection and there is no deformity, no midline tenderness, no CVA tenderness. SKIN: no rashes and no bruising UPPER EXTREMITIES: upper extremities are grossly normal. LOWER EXTREMITIES: No pitting edema. NEURO EXAM: Normal sensorium, cranial nerves II-XII grossly intact, normal speec h, no gross weakness of arms, no gross weakness of legs. Course Course ED COURSE: Vital signs were reviewed and normal. The patients medical record was reviewed The above diagnostic studies were performed and reviewed. ED treatments and interventions as stated above. 1113: The patient was evaluated in room B2. A complete history and physical examination was performed. 1326: I discussed the patients case with Dr. Mehnaz GOYAL hospitalist. He will evaluate the patient for further management. 1330: Upon reevaluation, I discussed my findings with the patient and he understands and agrees with the treatment plan. Based on the patients age, coexisting illnesses, exam and lab findings the decision to treat as an inpatient was made. The patient remained stable while under my care. The patient will be evaluated for further management. Administered Medications Discontinued Medications Sodium Chloride (Nss 1000ml) 1,000 mls @ 999 mls/hr IV .Q1H1M ONE Stop: 10/03/19 12:26 Last Infusion: 10/03/19 12:25 Dose: 0 mls/hr Documented by: [id number] Admin: 10/03/19 11:20 Dose: 999 mls/hr Documented by: [id number] Sodium Chloride (Nss 1000ml) 1,000 mls @ 999 mls/hr IV .Q1H1M ONE Stop: 10/03/19 13:32 Last Admin: 10/03/19 12:40 Dose: 999 mls/hr Documented by: [id number] Magnesium Sulfate/Dextrose (Magnesium Sulfate / D5w) 1 gm in 100 mls @ 100 mls/hr IV ONE ONE Stop: 10/03/19 14:12 Last Admin: 10/03/19 13:22 Dose: 100 mls/hr Documented by: [id number] Potassium Chloride (Klor-Con M20) 40 meq PO NOW STA Stop: 10/03/19 13:14 Last Admin: 10/03/19 13:21 Dose: 40 meq Documented by: [id number] Medical Decision Making Differential Diagnosis Differential diagnoses includes but is not limited to gastritis, peptic ulcer d isease, GERD, gallbladder disease, pancreatitis, small bowel obstruction, acute coronary syndrome, pericarditis, ischemic bowel, irritable bowel disease, irritable bowel syndrome, appendicitis, diverticulitis, malignancy, hernia, urinary tract infection, torsion, perforation, trauma, infectious. Medical Records Attestation: I reviewed the patient's medical records. Home Medications Current Medication List: was personally reviewed by me Laboratory Data Attestation: I reviewed the patient's lab results. Result diagrams: 10/03/19 11:05 10/03/19 11:05 Lab Results 10/03/19 10/03/19 10/03/19 Range/Units 11:05 11:05 12:45 WBC 6.43 (4.8-10.8) K/uL RBC 4.23 L (4.7-6.1) M/uL Hgb 12.3 L (14.0-18.0) g/dL Hct 35.7 L (42-52) % MCV 84.4 (80-100) fL MCH 29.1 (25-34) pg MCHC 34.5 (32-36) g/dL RDW Std Deviation 45.0 (36.4-46.3) fL RDW Coeff of Kurtis 14.5 (11.5-14.5) % Plt Count 118 L (130-400) K/uL MPV 10.3 (7.4-10.4) fL Immature Gran % (Auto) 0.8 % Neut % (Auto) 76.8 % Lymph % (Auto) 13.5 % Payette % (Auto) 7.0 % Eos % (Auto) 1.1 % Baso % (Auto) 0.8 % Immature Gran # (Auto) 0.05 H (0.00-0.02) K/uL Neut # (Auto) 4.94 (1.4-6.5) K/uL Lymph # (Auto) 0.87 L (1.2-3.4) K/uL Payette # (Auto) 0.45 (0.11-0.59) K/uL Eos # (Auto) 0.07 (0-0.5) K/uL Baso # (Auto) 0.05 (0-0.2) K/uL Sodium 137 (136-145) mmol/L Potassium 2.9 L (3.5-5.1) mmol/L Chloride 108 H (98-107) mmol/L Carbon Dioxide 20 L (21-32) mmol/L Anion Gap 9.0 (3-11) BUN 39 H (7-18) mg/dl Creatinine 2.65 H (0.6-1.4) mg/dl Est Cr Clr Drug Dosing 32.4 ml/min Est GFR ( Amer) 27.9 Est GFR (Non-Af Amer) 24.0 BUN/Creatinine Ratio 14.6 (10-20) Glucose 111 H (70-99) mg/dl Calcium 8.4 L (8.5-10.1) mg/dl Total Bilirubin 1.2 H (0.2-1) mg/dl AST 190 H (15-37) U/L ALT 83 H (12-78) U/L Alkaline Phosphatase 87 (45-117) U/L Total Protein 7.2 (6.4-8.2) gm/dl Albumin 3.0 L (3.4-5.0) gm/dl Globulin 4.2 H (2.5-4.0) gm/dl Albumin/Globulin Ratio 0.7 L (0.9-2) Lipase 225 (73-393) U/L Urine Color Red Urine Appearance Cloudy A (Clear) Urine pH (4.5-7.5) Ur Specific [place] 1.018 (1.000-1.030) Urine Protein (Negative) Urine Glucose (UA) (Negative) Urine Ketones (Negative) Urine Blood (Negative) Urine Nitrite (Negative) Urine Bilirubin (Negative) Urine Urobilinogen (Negative) Ur Leukocyte Esterase (Negative) Urine RBC >30 H (0-4) /hpf Urine WBC >30 H (0-5) /hpf Ur Epithelial Cells 5-10 H (0-5) /lpf Urine Bacteria Negative (Negative) Imaging Data Radiologist's Impression: Radiology results as stated below per my review and the radiologist's interpretation: CT abd pelvis wo con CLINICAL HISTORY: 64 years-old Male presenting with nausea, vomiting, stent placed. TECHNIQUE: Multidetector CT of the abdomen and pelvis was performed without the use of intravenous contrast. IV contrast: None. One or more dose lowering t echniques were used consistent with the principles of ALARA (as low as reasonably achievable), including automatic exposure control, mA or kV adjustment to individual patient size, and/or use of iterative reconstruction. COMPARISON: 06/23/2019. CT DOSE (mGy.cm): The estimated cumulative dose is 1045.83 mGy.cm. FINDINGS: Build Engineer topogram: Left ureteral stent. Pendleton catheter in place. Lung bases: Normal heart size. Coronary artery and aortic valve calcification. No pericardial or pleural effusion. Minimal dependent changes likely atelectasis. Liver: Congenital hypoplasia of the medial segments of the left hepatic lobe. Normal liver density. Biliary: No gross biliary ductal dilatation allowing for noncontrast technique. Gallbladder contains gallstones. Pancreas: Mild parenchymal atrophy. Spleen: Normal noncontrast appearance. Adrenal glands: Normal noncontrast appearance. Kidneys and ureters: Left ureteral stent in place with left urothelial thickening and mild distention of the left renal pelvis and left ureter. No hydronephrosis. Suspected flaccid left renal collecting system. No calcification along the course of the left ureteral stent. Normal noncontrast appearance of the renal parenchyma. No nephrolithiasis. Right ureter mildly distended with trace right urothelial thickening. Bladder: Circumferential bladder wall thickening. Pendleton catheter and completely decompresses the urinary bladder. Focus of gas within the bladder lumen related to the catheter. Pelvic organs: Mild prostatic enlargement likely secondary to benign prostatic hyperplasia. Bowel: Diverticulosis of the sigmoid and distal descending colon without wall thickening or pericolonic inflammatory change. The appendix is normal. No bowel obstruction. Small sliding type hiatal hernia. Mild wall thickening of the distal esophagus may be present. Peritoneal cavity: No free fluid or intraperitoneal gas. Trace retroperitoneal fluid or inflammatory change primarily tracking along the left ureter, left pelvic sidewall, and presacral regions. No retroperitoneal gas. Lymph nodes: No gross lymphadenopathy allowing for noncontrast technique. Vasculature: Atherosclerosis of the normal caliber abdominal aorta. Abdominal wall: Normal. Musculoskeletal: Degenerative changes of the spine. Sclerotic osseous lesion in the left femoral neck significantly increased in size from prior. Lesion in the left femoral head is similar to prior. New or increased size of the left acetabular lesion with multiple additional pelvic lesions with greater sclerosis and on prior exam. Size of the vast majority of the lesions are similar though sclerosis is increased. Multiple lesions also evident in the vertebral bodies as on prior exam. Lesions also noted in the ribs. IMPRESSION: 1. Multifocal sclerotic osseous lesions, which are largely stable from prior exam though increasingly sclerotic. This may represent posttreatment change of underlying osseous metastatic disease. 2. Circumferential bladder wall thickening likely indicates chronic bladder outlet obstruction. This is likely accompanied by chronic reflux uropathy and secondary to prostatomegaly. 3. Left ureteral stent in place with a flaccid left renal collecting system. No convincing evidence of hydronephrosis. Inflammatory changes of the left renal collecting system are most likely reactive to the presence of the stent. Correlate with urinalysis to exclude upper tract infection. 4. No gross evidence of an obstructing calculus. Limited evaluation for underlying neoplasm. 5. Diverticulosis coli. No diverticulitis. 6. Cholelithiasis. ACT 112: Negative or not required by law. Electronically signed by: Mervin Motley M.D. 10/03/2019 1:06 PM Blood Pressure Blood Pressure Findings: Elevated blood pressure Blood Pressure Disposition: further management by hospitalist MICHELLE Narrative Patient is a 64-year-old male who presents the ER with a left ureteral stent which was replaced this past by Dr. Alexandre for nausea and vomiting with eating. He notes he is able to keep down liquids but has been taking and decreased oral intake. IV was established blood work was obtained. Labs show no significant leukocytosis or anemia. BMP with mild hypokalemia 2.9. CO2 slightly low at 20. Creatinine elevated 2.65. This is up from a baseline of 1.2. Bilirubin and LFTs were slightly elevated as well at 1.2 and 190. Lipase was negative. CT abdomen pelvis was completely unremarkable. UA was difficult to interpret due to the large amount of hematuria. There is no bacteria. Will send for culture. Will not treat at this time. INR pending. CT abdomen pelvis showed no acute pathology. Patient was updated bedside discussed with hospitalist secondary to ELIE. Patient was given potassium as well. Impression & Plan Acute kidney injury, Transaminitis, Hypokalemia, Vomiting, Hematuria Discharge Plan Visit Data Chief Complaint: Vomiting Stated Complaint: VOMITING,S/P SURG 09/29 FOR CATHETER REMOVAL ED Provider: Mak Sidhu Discharge Problem: Acute kidney injury, Transaminitis, Hypokalemia, Vomiting, Hematuria Patient Disposition: Being Evaluated by Hospitalist Forms Stand Alone Forms: My [facility] Prescriptions Prescriptions: No Action lisinopril 10 mg tablet 20 mg PO QAM RF: 0 sildenafil [Viagra] 50 mg tablet 50 mg PO DAILY PRN (Reason: before sex) RF: 0 Lupron Depot (4 month) 30 mg syringe kit 30 mg IM Q16W RF: 0 Xgeva 120 mg/1.7 mL (70 mg/mL) solution 120 mg SQ MONTHLY RF: 0 warfarin [Coumadin] 2 mg tablet 2 mg PO UD RF: 0 atorvastatin 80 mg tablet 80 mg PO QAM RF: 0 metoprolol tartrate 25 mg Tablet 25 mg PO QAM RF: 0 bicalutamide [Casodex] 50 mg tablet 50 mg PO QAM RF: 0 aspirin 81 mg tablet,delayed release (DR/EC) 81 mg PO QAM RF: 0 cholecalciferol (vitamin D3) [Vitamin D3] 2,000 unit capsule 2,000 units PO QAM RF: 0 abiraterone [Zytiga] 250 mg Tablet 1,000 mg PO DAILY@1500 RF: 0 sulfamethoxazole-trimethoprim 800-160 mg Tablet 1 tab PO BID RF: 0 oxycodone-acetaminophen [Percocet] 7.5-325 mg tablet 1 tab PO Q8H PRN (Reason: pain) Qty: 7 RF: 0 cephalexin [Keflex] 500 mg capsule 500 mg PO BID Qty: 10 RF: 0 Referrals Referrals: Randa Pyle DO [Primary Care Provider] - Discharge Problem: Vomiting Qualifiers: Vomiting type: unspecified Vomiting Intractability: non-intractable Nausea presence: with nausea Qualified Code(s): R11.2 - Nausea with vomiting, unspecified Hematuria Qualifiers: Hematuria type: unspecified type Qualified Code(s): R31.9 - Hematuria, unspecified The scribe's documentation has been prepared under my direction and personally reviewed by me in its entirety. I confirm that the note above accurately reflects all work, treatment, procedures, and medical decision making performed by me.
[2019-10-03 15:14] LABS: Prothrombin Time 51.1 Seconds (9.0-12.0)
[2019-10-03 15:19] LABS: INR 5.6 (0.9-1.1)
[2019-10-03] MEDS ORDERED: PHYTONADIONE 5 MG in SODIUM CHLORIDE 0.9% 50 ML IV STA (16:09)
--- NOTE | 2019-10-03 16:37 | History & Physical Report ---
Date of Service October 03, 2019 Assessment & Plan (1) Hematuria: Admit to [facility] on telemetry CBC every 6 hours Given vitamin K 5 mg IV in the ER for supratherapeutic INR of 5.6. Recheck INR and CBC 2 units of blood on hold in case that H&H drops below 8 or patient symptomatic. Consult urology Continue monitoring H&H Hold warfarin DVT prophylaxis SCDs and teds Full code Present on Admission?: Yes (2) Acute kidney injury: Baseline creatinine is 1.25 and GFR of 59.6 last time checked on September 15, 2019. Patient's creatinine is 2.65 and GFR of 14.6. Avoid nephrotoxic agents. We will consult urology to rule out possible outlet obstruction as a reason for worsening creatinine/GFR. Gentle IV fluid hydration with normal saline with potassium. Present on Admission?: Yes (3) Transaminitis: This visit patient has elevated transaminases AST of 190 and ALT of 83. Liver ultrasound pending Continue trending down transaminases. Consider consulting GI if no improvement. Present on Admission?: Yes (4) Hypokalemia: Potassium is 2.9. Continue normal saline with 20 mEq of potassium in addition to replacing potassium 40 mEq p.o. twice daily. Monitor potassium daily and replenish. Present on Admission?: Yes (5) Vomiting: Antinausea management with Zofran 4 mg IV every 6 hours as needed Present on Admission?: Yes (6) Bilateral ureteral obstruction: As discussed above Present on Admission?: Yes (7) Metastatic adenocarcinoma to prostate: Continue monitoring. PSA is improving. Last time PSA was measured on September 16 and it was 0.194, which was significant improvement considering the result of 8.980 in June 2019. Continue monitoring. Present on Admission?: Yes (8) Dyslipidemia: Due to elevated transaminases will hold atorvastatin 80 mg p.o. every morning. Present on Admission?: Yes (9) Hypertension: Stable, hold aspirin 81 mg p.o. every morning since patient has hematuria, continue lisinopril 20 mg p.o. every morning, continue metoprolol tartrate 25 mg p.o. every morning. Present on Admission?: Yes (10) Coronary artery disease: As the above. Present on Admission?: Yes (11) History of PR (myocardial infarction): As the above Present on Admission?: Yes (12) Left ventricular thrombus: Due to issue with hematuria we will have to hold warfarin until INR is below 2 and bleeding stops. Consider giving another dose of vitamin K if INR persistently elevated. Present on Admission?: Yes (13) Supratherapeutic INR: As the above. Since patient has hematuria INR should be below 2 or close to 1. Hold warfarin due to hematuria and supratherapeutic INR. Present on Admission?: Yes (14) Urinary tract infection: Follow-up with urine cultures urine culture. Started ceftriaxone 2 g IV daily empirically. Present on Admission?: Yes History of Present Illness Chief Complaint: Hematuria Primary Care Provider: Randa Pyle DO Patient is a 64 years old male with past medical history of hypertension, dyslipidemia, coronary artery disease, history of PR, metastatic adenocarcinoma of the prostate, bilateral ureteral obstruction who presents to the emergency financial bladder wall thickening s/p replacement of the ureteral stent on September 29, 2019 who complains of generalized dizziness and gross hematuria. Patient was seen and September 29 for bilateral ureteral obstruction associated with prostate cancer and cystoscopy, bilateral retrograde, right stent removal, left ureteral stent exchange, transurethral resection of prostate/bladder neck, direct visualization of the internal urethrotomy (maral) was done. Patient was started on Keflex 500 mg twice daily for 10 days.Patient is on warfarin for left ventricular thrombus. Labs are reviewed: WBC is 6.43, hemoglobin 12.3, hematocrit 35.7, platelets 118.7, PT 51.1, INR 5.6 supratherapeutic, sodium 137, potassium 2.9, chloride 108, carbon dioxide 20, anion gap 9, BUN 39, creatinine 2.65, GFR 24, calcium 8.4, total bilirubin 1.2, AST 190, ALT 83, alkaline phosphatase 87, albumin 3, globulin 4.2, prostate-specific antigen 0.194. Urine cloudy, RBCs over 30 WBCs over 30 and epithelial cells 5-10. Abdomen CT and pelvis without contrast shows multifocal sclerotic osseous lesion, which are largely stable from the prior exam through increasingly sclerotic. This may represent posttreatment change of underlying osseous metastatic disease. Circumferential bladder wall thickening likely indicate chronic bladder outlet obstruction. This is likely accompanied by chronic reflux uropathy and secondary to prostatomegaly. Left ureteral stent in place with a flaccid left renal collecting system.No evidence of hydronephrosis. Inflammatory changes of the left renal collecting system are most likely reactive to the presence of the stent. Correlate with urine analysis to exclude upper tract infection. No gross evidence of an obstructing calculus. Limited evaluation for underlying neoplasm. Diverticulosis Lynda. No diverticulitis. Cholelithiasis. Decision was made to admit patient to [facility] on telemetry for hematuria, urinary tract infection and acute kidney insufficiency. Allergies Allergy/AdvReac Type Severity Reaction Status Date / Time No Known Allergies Allergy Verified 10/03/19 11:53 Home Medications Home Medications Medication Instructions Recorded Confirmed Type atorvastatin 80 mg tablet 80 mg PO QAM 06/17/19 10/03/19 History leuprolide (4 month) 30 mg (4 30 mg IM Q16W 07/13/19 10/03/19 History month) intramuscular syringe kit lisinopril 10 mg tablet 20 mg PO QAM 07/13/19 10/03/19 History sildenafil 50 mg tablet 50 mg PO DAILY PRN 07/13/19 10/03/19 History denosumab 120 mg/1.7 mL (70 mg/mL) 120 mg SQ MONTHLY ml 07/20/19 10/03/19 History subcutaneous solution metoprolol tartrate 25 mg PO QAM 07/22/19 10/03/19 History aspirin 81 mg PO QAM 07/23/19 10/03/19 History bicalutamide [Casodex] 50 mg PO QAM 07/23/19 10/03/19 History cholecalciferol (vitamin D3) 2,000 units PO QAM 07/23/19 10/03/19 History [Vitamin D3] warfarin 2 mg tablet 2 mg PO UD 08/08/19 10/03/19 History abiraterone [Zytiga] 1,000 mg PO DAILY@1500 09/22/19 10/03/19 History cephalexin [Keflex] 500 mg PO BID #10 cap 09/29/19 10/03/19 Rx oxycodone-acetaminophen [Percocet] 1 tab PO Q8H PRN #7 tab 09/29/19 10/03/19 Rx sulfamethoxazole-trimethoprim 1 tab PO BID 09/29/19 10/03/19 History Past Med/Surg History Medical History Bilateral hydronephrosis (Acute) Coronary artery disease (Chronic) Dyslipidemia (Chronic) History of PR (myocardial infarction) (Resolved) 2012 Hypertension (Chronic) Left ventricular thrombus ON WARFARIN Metastatic adenocarcinoma to prostate (Chronic) 06/11/19 Prostate cancer metastatic to bone (Chronic) s/p radiation treatment Surgical History History of ankle surgery (Resolved) Left ankle surgery relate to fracture in childhood; History of cardiac cath 2013 - PR - 1 stent - Follows w/ Dr. Owens History of heart artery stent (Resolved) One stent;2012 History of prostate biopsy History of surgery 06/11/19- Dr. Alexandre ; Cystoscopy, transurethral resection of prostate; bilateral retrograde pyelogram; bilateral ureteral stent placement; left ureteroscopy with ureteral dilation;cystogram, Transurethral Resection Bladder Tumor, large History of tonsillectomy (Resolved) Family History Mother , in her 70s Coronary heart disease Hx of CABG Hypertension Father , 76yo Prostate cancer Brother Prostate cancer Hypertension Brother Diabetes Hypertension Sister Unknown family medical history Other CAD (coronary atherosclerotic disease) No family history of adverse response to anesthesia Social History Preferred Language: Turkish Communication Ability: Effective Visual Impairment: No Limitations Hearing Ability: Normal 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: No Beliefs That Will Affect Care: None marital status: Current Living Situation: Family 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 occupational status: 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 Other Information That Helps Us Care for You: No Feels Safe at Home: Yes Safety Concerns: Feels Safe At This Time Smoking Status: Former smoker Tobacco Type: cigarettes and smokeless tobacco ; Cigarettes Per Day: 1 PPD x 15yrs off and on ; Second Hand Exposure: No ; Hx Alcohol Use: No Hx Substance Use: No caffeine: Yes (3 cups/day) during the past year weight has: decreased > 10 lbs Review of Systems Review of Systems: All systems reviewed & are unremarkable except as noted in HPI & below Physical Exam Constitutional: WD/WN, vitals as above well developed and + obese Eyes: PERRL, conjunctivae normal, anicteric sclerae ENMT: external ear and nose normal, oropharynx normal Neck: trachea midline, no thyromegaly Respiratory: normal respiratory effort, lungs clear to auscultation Cardiovascular: RRR, no murmur, no edema Gastrointestinal (Abdomen): normal bowel sounds, soft, nontender, no he patosplenomegaly Musculoskeletal: no cyanosis or clubbing, extremities motor strength 5/5 Skin: no rashes, warm and dry Neurologic: patellar DTR's 2+ bilat, sensation intact Psychiatric: A+Ox3, euthymic affect Genitourinary: Gross hematuria Lymphatic: no cervical or axillary lymphadenopathy Results & Data Vital Signs (Past 12 Hours) Vital Signs Temp Pulse Pulse Resp BP BP Pulse Ox 10/03/19 14:33 79 16 165/96 H 96 10/03/19 13:31 37 C 78 20 143/98 H 99 10/03/19 12:05 82 20 127/84 97 10/03/19 11:12 97 10/03/19 11:10 68 18 106/62 97 10/03/19 10:43 96 H 20 106/72 95 Code Status & VTE Plan Code Status Full code VTE Prophylaxis Plan VTE Prophylaxis will be ordered: Yes PG Care Time/CCT Total # of Minutes Spent Total Time Spent with Patient: Total time spent is greater than 50% in coordination of care (as documented) at patient's floor/unit and/or counseling patient: (1) Hematuria Hematuria type: unspecified type Qualified Code(s): R31.9 - Hematuria, unspecified (2) Vomiting Nausea presence: with nausea Vomiting Intractability: non-intractable Vomiting type: unspecified Qualified Code(s): R11.2 - Nausea with vomiting, unspecified
[2019-10-03] MEDS ORDERED: ACETAMINOPHEN 325 MG TAB PO PRN (17:58)
[2019-10-03] MEDS ORDERED: ONDANSETRON INJ 2 MG/ML 2 ML VIAL IV PRN (17:58)
[2019-10-03] MEDS ORDERED: OXYCODONE/APAP 7.5/325MG TAB PO PRN (17:58)
[2019-10-03] MEDS ORDERED: ALUMINUM/MAGNESIUM SUSP 30 ML UDC PO PRN (17:58)
[2019-10-03] MEDS ORDERED: POLYETHYLENE (MIRALAX) 17 GM PACK PO PRN (17:58)
[2019-10-03] MEDS ORDERED: MAGNESIUM HYDROXIDE SUSP 30 ML UDC PO PRN (18:00)
[2019-10-03] MEDS: NSS + 20MEQ KCL 20 MEQ/1,000 ML BAG IV SCH (18:50)
[2019-10-03] MEDS: POTASSIUM CHLORIDE 20 MEQ TABCR PO SCH (20:39)
[2019-10-03] MEDS ORDERED: cephALEXin 500 MG CAP PO SCH (21:00)
[2019-10-03] MEDS ORDERED: SODIUM CHLORIDE 0.9% 250 ML IV PRN (21:05)
[2019-10-03 21:24] LABS: Hematocrit (blood only) 31.6 % (42-52); Hemoglobin 10.8 g/dL (14.0-18.0); Mean Corpuscular Hemoglobin 29.2 pg (25-34); Mean Corpuscular Volume 85.4 fL (80-100); RDW Coefficient of Variation 14.4 % (11.5-14.5); RDW Standard Deviation 45.5 fL (36.4-46.3); White Blood Count 4.42 K/uL (4.8-10.8)
[2019-10-03 21:34] LABS: INR 2.2 (0.9-1.1); Prothrombin Time 21.1 Seconds (9.0-12.0)
[2019-10-03 22:28] LABS: Basophils # (auto) 0.07 K/uL (0-0.2); Basophils % (auto) 1.6 %; Echinocytes 1+; Eosinophils # (auto) 0.12 K/uL (0-0.5); Eosinophils % (auto) 2.7 %; Immature Granulocytes # (auto) 0.02 K/uL (0.00-0.02); Immature Granulocytes % (auto) 0.5 %; Lymphocytes # (auto) 1.01 K/uL (1.2-3.4); Lymphocytes % (auto) 22.9 %; Mean Corpuscular Hgb Conc 34.2 g/dL (32-36); Mean Platelet Volume 10.1 fL (7.4-10.4); Monocytes # (auto) 0.49 K/uL (0.11-0.59); Monocytes % (auto) 11.1 %; Neutrophils # (auto) 2.71 K/uL (1.4-6.5); Neutrophils % (auto) 61.2 %; Platelet Count 79 K/uL (130-400); Platelet Estimate Decreased (Normal)
[2019-10-04] MEDS ORDERED: cefTRIAXone SODIUM 2,000 MG in DEXTROSE 5% 50 ML IV SCH
[2019-10-04] MEDS: [UNRECOGNIZED DRUG - OTHER] SCH ×2 (00:02→08:42)
[2019-10-04] MEDS ORDERED: SODIUM CHLORIDE 0.9% 250 ML IV PRN ×2 (00:36→00:45)
[2019-10-04 01:59] LABS: Hematocrit (blood only) 30.2 % (42-52); Hemoglobin 10.4 g/dL (14.0-18.0); Mean Corpuscular Hemoglobin 29.1 pg (25-34); Mean Corpuscular Hgb Conc 34.4 g/dL (32-36); Mean Corpuscular Volume 84.4 fL (80-100); RDW Coefficient of Variation 14.3 % (11.5-14.5); RDW Standard Deviation 44.2 fL (36.4-46.3); Red Blood Count 3.58 M/uL (4.7-6.1); White Blood Count 4.61 K/uL (4.8-10.8)
[2019-10-04 02:22] LABS: Mean Platelet Volume 9.6 fL (7.4-10.4); Platelet Count 78 K/uL (130-400)
[2019-10-04 02:37] LABS: Basophils # (auto) 0.04 K/uL (0-0.2); Basophils % (auto) 0.9 %; Eosinophils # (auto) 0.13 K/uL (0-0.5); Eosinophils % (auto) 2.8 %; Immature Granulocytes # (auto) 0.01 K/uL (0.00-0.02); Immature Granulocytes % (auto) 0.2 %; Lymphocytes # (auto) 1.06 K/uL (1.2-3.4); Monocytes # (auto) 0.49 K/uL (0.11-0.59); Monocytes % (auto) 10.6 %; Neutrophils # (auto) 2.88 K/uL (1.4-6.5); Neutrophils % (auto) 62.5 %
[2019-10-04 08:11] LABS: Hematocrit (blood only) 34.7 % (42-52); Hemoglobin 11.9 g/dL (14.0-18.0); Mean Corpuscular Hemoglobin 29.3 pg (25-34); Mean Corpuscular Hgb Conc 34.3 g/dL (32-36); Mean Corpuscular Volume 85.5 fL (80-100); RDW Coefficient of Variation 14.2 % (11.5-14.5); RDW Standard Deviation 44.9 fL (36.4-46.3); Red Blood Count 4.06 M/uL (4.7-6.1); White Blood Count 4.34 K/uL (4.8-10.8)
[2019-10-04 08:20] LABS: INR 1.4 (0.9-1.1); Mean Platelet Volume 10.1 fL (7.4-10.4); Platelet Count 73 K/uL (130-400); Prothrombin Time 13.7 Seconds (9.0-12.0)
[2019-10-04] MEDS: ASPIRIN 81 MG ECTAB PO SCH (08:35)
[2019-10-04 08:37] LABS: Albumin Level 2.3 gm/dl (3.4-5.0); BUN Creatinine Ratio 15.6 (10-20); Creatinine Clr Calc Pharmacy 61.5 ml/min; Est GFR (African American) 60.3; Potassium 3.5 mmol/L (3.5-5.1)
[2019-10-04 08:41] LABS: Albumin Globulin Ratio 0.7 (0.9-2); Bilirubin,Total 1.3 mg/dl (0.2-1); Globulin 3.3 gm/dl (2.5-4.0); Total Protein 5.6 gm/dl (6.4-8.2)
[2019-10-04] MEDS: BICALUTAMIDE 50 MG TAB PO SCH (08:41)
[2019-10-04] MEDS: ATORVASTATIN 40 MG TAB PO SCH (08:41)
[2019-10-04] MEDS: lisinopriL 20 MG TAB PO SCH (08:41)
[2019-10-04] MEDS: METOPROLOL TARTRATE 25 MG TAB PO SCH (08:41)
[2019-10-04] MEDS: POTASSIUM CHLORIDE 20 MEQ TABCR PO SCH ×2 (08:41→20:44)
[2019-10-04] MEDS: CHOLECALCIFEROL 1,000 UNITS 25 MCG TAB PO SCH (08:41)
[2019-10-04] MEDS: NSS + 20MEQ KCL 20 MEQ/1,000 ML BAG IV SCH ×2 (08:42→17:21)
--- NOTE | 2019-10-04 08:50 | Ultrasound Report ---
US liver CLINICAL HISTORY: 64 years-old Male presenting with transaminitis, nausea and vomiting. TECHNIQUE: Real-time grayscale and limited color Doppler ultrasound imaging of the abdomen limited to the right upper quadrant was performed. COMPARISON: CT from 10/03/2019. FINDINGS: Pancreas: Visualized portions of the pancreatic head and body normal. Liver: Normal echogenicity and echotexture of the visualized portion with limited assessment of the h epatic dome due to limited sonographic window. The liver measures 13.3 cm in maximal sagittal dimensi on. Two hyperechoic foci, the larger measuring 1.4 cm, which are indeterminate. Main portal vein hdez nt with normal directional flow. Biliary: No intrahepatic biliary ductal dilatation. Common bile duct measures up to 3 mm in diameter. Gallbladder: Partially decompressed with resultant wall thickening. No evidence of gallstones or daniel cholecystic fluid or inflammatory change. Right kidney: Normal in appearance without evidence of hydronephrosis. Ascites: None. Other: None. IMPRESSION: 1. Indeterminate hyperechoic liver lesions. These most likely represent benign hemangiomas and may h ave been present on prior contrast-enhanced CT from 06/23/2019 amidst scattered hepatic cysts. If the patient has a history of hepatocellular risk factors or known malignancy, further evaluation with de dicated liver protocol CT or MR could be considered depending on the level of clinical concern. The report will be called/faxed according to standard departmental protocol. ACT 112: Negative or not required by law. Electronically signed by: Mervin Motley M.D. 10/04/2019 8:48 AM
[2019-10-04] MEDS ORDERED: PANTOprazole 40 MG in SYRINGE 0 ML IV SCH (12:15)
--- NOTE | 2019-10-04 13:07 | Gastrointestinal Consultation ---
Date of Consultation October 04, 2019 Assessment & Plan (1) Dysphagia: possible peptic stricture in the setting of previous plavix use, current coumadin and asa use. (2) Anemia: likely multifactorial (3) Dark stools: possible PUD Recs: 1. start PPI protonix 40 mg BID 2. plan for EGD on 10/06 to further evaluate, NPO post midnight thursday night rest as per primary team Thank you for allowing me to participate in the care of this patient. History of Present Illness Attending Physician: Bob Bernard MD 64 yo male with hx HTN, HLD, CAD, TN, LV thrombus on coumadin, metastatic prostate cancer, ureteral obstruction here with hematuria and dizziness. GI consulted for dysphagia, anemia, and dark stool. Patient notes having dark stools this morning, along with dysphagia, feeling like something is "stuck" in his throat/upper chest. He has never had these problems before. No prior EGD nor colonoscopy. Continues to have hematuria as well. Labs reviewed, notable for mild anemia hgb 11.9, BUN noted to be high 22. CT shows diverticulosis. Allergies Allergy/AdvReac Type Severity Reaction Status Date / Time No Known Allergies Allergy Verified 10/03/19 11:53 Home Medications Home Medications Medication Instructions Recorded Confirmed Type atorvastatin 80 mg tablet 80 mg PO QAM 06/17/19 10/03/19 History leuprolide (4 month) 30 mg (4 30 mg IM Q16W 07/13/19 10/03/19 History month) intramuscular syringe kit lisinopril 10 mg tablet 20 mg PO QAM 07/13/19 10/03/19 History sildenafil 50 mg tablet 50 mg PO DAILY PRN 07/13/19 10/03/19 History denosumab 120 mg/1.7 mL (70 mg/mL) 120 mg SQ MONTHLY ml 07/20/19 10/03/19 History subcutaneous solution metoprolol tartrate 25 mg PO QAM 07/22/19 10/03/19 History aspirin 81 mg PO QAM 07/23/19 10/03/19 History bicalutamide [Casodex] 50 mg PO QAM 07/23/19 10/03/19 History cholecalciferol (vitamin D3) 2,000 units PO QAM 07/23/19 10/03/19 History [Vitamin D3] warfarin 2 mg tablet 2 mg PO UD 08/08/19 10/03/19 History abiraterone [Zytiga] 1,000 mg PO DAILY@1500 09/22/19 10/03/19 History cephalexin [Keflex] 500 mg PO BID #10 cap 09/29/19 10/03/19 Rx oxycodone-acetaminophen [Percocet] 1 tab PO Q8H PRN #7 tab 09/29/19 10/03/19 Rx sulfamethoxazole-trimethoprim 1 tab PO BID 09/29/19 10/03/19 History Patient History Medical History Bilateral hydronephrosis (Acute) Coronary artery disease (Chronic) Dyslipidemia (Chronic) History of [place] (myocardial infarction) (Resolved) 2012 Hypertension (Chronic) Left ventricular thrombus ON WARFARIN Metastatic adenocarcinoma to prostate (Chronic) 06/11/19 Prostate cancer metastatic to bone (Chronic) s/p radiation treatment Surgical History History of ankle surgery (Resolved) Left ankle surgery relate to fracture in childhood; History of cardiac cath 2012 - [place] - 1 stent - Follows w/ Dr. Owens History of heart artery stent (Resolved) One stent;2012 History of prostate biopsy History of surgery 06/11/19- Dr. Alexandre ; Cystoscopy, transurethral resection of prostate; bilateral retrograde pyelogram; bilateral ureteral stent placement; left ureteroscopy with ureteral dilation;cystogram, Transurethral Resection Bladder Tumor, large History of tonsillectomy (Resolved) Family History Mother , in her 70s Coronary heart disease Hx of CABG Hypertension Father , 76yo Prostate cancer Brother Prostate cancer Hypertension Brother Diabetes Hypertension Sister Unknown family medical history Other CAD (coronary atherosclerotic disease) No family history of adverse response to anesthesia Social History Preferred Language: Kyrgyz Communication Ability: Effective Visual Impairment: No Limitations Hearing Ability: Normal Shoder Filler Required: No Beliefs That Will Affect Care: None marital status: Current Living Situation: Family 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 Other Information That Helps Us Care for You: No Feels Safe at Home: Yes Safety Concerns: Feels Safe At This Time Smoking Status: Former smoker Tobacco Type: cigarettes and smokeless tobacco ; Cigarettes Per Day: 1 PPD x 15yrs off and on ; Second Hand Exposure: No ; Hx Alcohol Use: No Hx Substance Use: No caffeine: Yes (3 cups/day) during the past year weight has: decreased > 10 lbs Review of Systems Constitutional: no fever, no chills and no weight loss Eyes: as per Subjective / HPI Ear, Nose, Mouth, Throat: as per Subjective / HPI Respiratory: no dyspnea and no dyspnea on exertion Cardiovascular: no chest pain and no palpitations Gastrointestinal: as per Subjective / HPI Musculoskeletal: no joint pain and no swelling Integumentary: no rash and no lesions Neurologic: no numbness and no paresthesia Psychiatric: no depression and no anxiety Endocrine: no fatigue Hematologic / Lymphatic: no easy bleeding and no easy bruising Physical Exam Constitutional: WD/WN, vitals as above Eyes: EOM intact bilaterally Neck: normal visual inspection Respiratory: normal respiratory effort, lungs clear to auscultation Cardiovascular: RRR, no murmur, no edema Gastrointestinal (Abdomen): Inspection/Auscultation: abdomen normal to inspection; abdomen not distended Percussion/Palpation: abdomen soft; abdomen nontender and no hepatosplenomegaly Musculoskeletal: Extremities: no cyanosis Gait: normal gait Skin: no rashes, warm and dry Neurologic: moves all extremities Psychiatric: A+Ox3, euthymic affect Results & Data Vital Signs (Past 12 Hours) Vital Signs Temp Pulse Pulse Resp BP BP Pulse Ox 10/04/19 11:40 36.7 C 69 20 125/81 96 10/04/19 08:00 36.8 C 74 18 134/68 95 10/04/19 07:35 76 10/04/19 07:17 37.0 C 81 18 139/85 93 10/04/19 07:13 36.8 C 78 16 131/83 95 10/04/19 06:13 37 C 80 16 136/86 95 10/04/19 05:43 36.9 C 76 16 122/76 95 10/04/19 05:28 36.8 C 77 16 126/79 95 10/04/19 05:07 36.9 C 83 16 128/82 95 10/04/19 04:15 37.1 C 78 20 122/79 96 10/04/19 03:15 37.1 C 83 16 129/82 94 10/04/19 03:01 36.9 C 78 16 132/84 96 10/04/19 02:45 37.1 C 80 16 128/80 95 10/04/19 02:43 37.1 C 80 16 128/80 95 10/04/19 02:30 37.1 C 78 16 123/79 95 10/04/19 02:12 36.8 C 78 18 122/79 96 PG Care Time/CCT Total # of Minutes Spent Total Time Spent with Patient: Total time spent is greater than 50% in coordination of care (as documented) at patient's floor/unit and/or counseling patient:
--- NOTE | 2019-10-04 13:18 | Hospitalist Progress Note ---
Date of Service October 04, 2019 Assessment & Plan (1) Hematuria: Postprocedural bleeding/hematuria due to bilateral ureteral stent removal and left sided replacement as well as resection of bladder head, a complication of care. Hgb has been stable Given vitamin K 5 mg IV in the ER for supratherapeutic INR of 5.6 - INR now 1.4 Consulted urology - they feel that the hematuria is an expected result of his recent procedures and could be expected to persist up to 6 weeks. He should keep the Pendleton catheter in until his follow up Continue to hold warfarin for now (2) Acute kidney injury: Patient's creatinine 2.65 on admission, now creat is 1.4, baseline is 1.2 Avoid nephrotoxic agents. Gentle IV fluid hydration with normal saline with potassium. (3) Dark stools: Possible GI bleed - GI consulted - pantoprazole po bid and EGD on Will wait to restart Warfarin until after EGD on NPO after MN on (4) Hypokalemia: Replaced Continue normal saline with 20 mEq of potassium in addition to replacing potassium 40 mEq p.o. twice daily. Monitor potassium daily and replenish. (5) Vomiting: Antinausea management with Zofran 4 mg IV every 6 hours as needed (6) Bilateral ureteral obstruction: On CT - Circumferential bladder wall thickening likely indicates chronic bladder outlet obstruction. This is likely accompanied by chronic reflux uropathy and secondary to prostatomegaly. Urology on board (7) Metastatic adenocarcinoma to prostate: Continue monitoring. PSA is improving. Last time PSA was measured on September 16 and it was 0.194, which was significant improvement considering the result of 8.980 in June 2019. Continue monitoring. Consult oncology (8) Left ventricular thrombus: Diagnosed in early July - patient has had about 2 months of treatment at this point Continue to hold Warfarin for now due to GI bleed Discussed with GI concerning anticoagulation and agree that given the complexity of his situation it is probably better to treat the clot and monitor for blood loss. Will start low dose no bolus IV heparin until after scope and then will need to resume warfarin with bridging after that. I had an in depth conversation with the patient concerning risks and benefits of this plan and he is in agreement. May need to tolerate hematuria for the time being and resume Warfarin despite continued hematuria after endoscopy to continue to treat thrombus. (9) Supratherapeutic INR: As the above. 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: Platelets were 213,000 on 09/15, now rebounding slightly to 82,000 Will order peripheral smear and HIT panel - patient did have Lovenox bridging with urology procedure Consulted heme/onc (11) Urinary tract infection: UC less than 1000 colonies - dc abx (12) Transaminitis: This visit patient has elevated transaminases AST of 190 and ALT of 83 - now trending back down Liver ultrasound with possible hemangioma - per discussion with Oncology patient has had this finding before and can be set up for further imaging after discharge (13) History of [place] (myocardial infarction): As the above (14) Coronary artery disease: As below. (15) Hypertension: Stable, hold aspirin 81 mg p.o. for bleeding, continue lisinopril 20 mg p.o. every morning, continue metoprolol tartrate 25 mg p.o. every morning. Patient with history of NH 2002 (16) Dyslipidemia: Due to elevated transaminases will hold atorvastatin 80 mg p.o. every morning. (17) DVT prophylaxis: SCDs, heparin gtt Subjective Mr. Stern reports a feeling of difficulty swallowing/pressure in his lower chest over the last few days. He also had a large bowel movement with black stool today. He is nauseas whenever he eats but does not feel as nauseas without food. ROS Constitutional: no chills, aches, sweats or fever Respiratory: no sob,cough, sputum, or wheezing Cardiac: no cp, sob, palpitations GI: see HPI : no dysuria or hesitancy Extremities: no joint pain or weakness Skin: no rash All other systems reviewed and negative Physical Exam Physical Exam: General: no distress Eyes: normal inspection, PERLL Respiratory: chest non tender, clear to auscultation, normal breath sounds, no respiratory distress, no accessory muscle use Cardiac: regular rate and rhythm, no rub or gallop, no murmur, no edema, no jvd GI/: active bowel sounds, no abd pain or tenderness, soft, non distended Extremities: normal range of motion, normal strength, non tender Neuro/Psych: alert and oriented x 3, normal mood and affect Skin: normal color, dry Results & Data Vital Signs (Past 12 Hours) Vital Signs Temp Pulse Pulse Resp BP BP Pulse Ox 10/04/19 11:40 36.7 C 69 20 125/81 96 10/04/19 08:00 36.8 C 74 18 134/68 95 10/04/19 07:35 76 10/04/19 07:17 37.0 C 81 18 139/85 93 10/04/19 07:13 36.8 C 78 16 131/83 95 10/04/19 06:13 37 C 80 16 136/86 95 10/04/19 05:43 36.9 C 76 16 122/76 95 10/04/19 05:28 36.8 C 77 16 126/79 95 10/04/19 05:07 36.9 C 83 16 128/82 95 10/04/19 04:15 37.1 C 78 20 122/79 96 10/04/19 03:15 37.1 C 83 16 129/82 94 10/04/19 03:01 36.9 C 78 16 132/84 96 10/04/19 02:45 37.1 C 80 16 128/80 95 10/04/19 02:43 37.1 C 80 16 128/80 95 10/04/19 02:30 37.1 C 78 16 123/79 95 10/04/19 02:12 36.8 C 78 18 122/79 96 PG Care Time/CCT Total # of Minutes Spent Total Time Spent with Patient: Total time spent is greater than 50% in coordination of care (as documented) at patient's floor/unit and/or counseling patient: (1) Hematuria Hematuria type: unspecified type Qualified Code(s): R31.9 - Hematuria, unspecified (2) Vomiting Nausea presence: with nausea Vomiting Intractability: non-intractable Vomiting type: unspecified Qualified Code(s): R11.2 - Nausea with vomiting, unspecified
--- NOTE | 2019-10-04 14:06 | Urology Consultation ---
Date of Consultation October 04, 2019 Assessment & Plan (1) Hematuria: 64 yo M with multiple comorbidities admitted for vomiting, hematuria, and supratherapeutic INR. - Hematuria expected in the setting of recent ureteral stenting and resection of bladder neck with supratherapeutic INR - INR 1.4 today - Creatinine improved to 1.4 - Continue Pendleton catheter at present. Discussed with Dr. Alexandre, can plan on d/c catheter tomorrow morning and monitor. - Monitor H/H - Will continue to follow while inpatient History of Present Illness Reason for Consultation: Hematuria Attending Physician: Bob Bernard MD History of Present Illness 64 yo M with PMHx of hypertension, metastatic prostate cancer, CAD, left altaf tricular thrombus and dyslipidemia admitted for ELIE, vomiting, and hematuria. New consultation for hematuria. Patient is known to our service, following with Dr. Alexandre for metastatic prostate cancer. He is s/p bilateral stent removal, left stent exchange, and transurethral resection of prostate/bladder neck on 09/[address] Alexandre. Pt admitted via [facility] ED on 10/03/19. Presented with history of vomiting x 4 days and ongoing hematuria. Lab work demonstrated supratherapeutic INR at 5.6, Creatinine 2.65, hemoglobin 12.3, hypokalemia and transaminitis on admission. Chart review: Afebrile Cr - 1.4 INR - 1.4 Hgb - 11.9 UC&S - no growth, preliminary CT abd/pelvis - Multifocal sclerotic osseous lesions, which are largely stable from prior exam; circumferential bladder wall thickening likely indicates chronic bladder outlet obstruction. This is likely accompanied by chronic reflux uropathy and secondary to prostatomegaly; Left ureteral stent in place with a flaccid left renal collecting system. No convincing evidence of hydronephrosis. Inflammatory changes of the left renal collecting system are most likely reactive to the presence of the stent. No gross evidence of an obstructing calcu shelli. Limited evaluation for underlying neoplasm. Pt awake, sitting up in bed. at bedside. Pendleton catheter intact, draining clear light red urine, no clots. Low appetite. No f/c/n/v. No dysuria, urgency, or abdominal pain. Tolerating Pendleton catheter. Reports Pendleton catheter has been draining red urine since his hospital discharge after recent procedure, but denies clots. Pt complains of discomfort after swallowing, dark stools and states he is undergoing work-up with GI. Allergies Allergy/AdvReac Type Severity Reaction Status Date / Time No Known Allergies Allergy Verified 10/03/19 11:53 Home Medications Home Medications Medication Instructions Recorded Confirmed Type atorvastatin 80 mg tablet 80 mg PO QAM 06/17/19 10/03/19 History leuprolide (4 month) 30 mg (4 30 mg IM Q16W 07/13/19 10/03/19 History month) intramuscular syringe kit lisinopril 10 mg tablet 20 mg PO QAM 07/13/19 10/03/19 History sildenafil 50 mg tablet 50 mg PO DAILY PRN 07/13/19 10/03/19 History denosumab 120 mg/1.7 mL (70 mg/mL) 120 mg SQ MONTHLY ml 07/20/19 10/03/19 History subcutaneous solution metoprolol tartrate 25 mg PO QAM 07/22/19 10/03/19 History aspirin 81 mg PO QAM 07/23/19 10/03/19 History bicalutamide [Casodex] 50 mg PO QAM 07/23/19 10/03/19 History cholecalciferol (vitamin D3) 2,000 units PO QAM 07/23/19 10/03/19 History [Vitamin D3] warfarin 2 mg tablet 2 mg PO UD 08/08/19 10/03/19 History abiraterone [Zytiga] 1,000 mg PO DAILY@1500 09/22/19 10/03/19 History cephalexin [Keflex] 500 mg PO BID #10 cap 09/29/19 10/03/19 Rx oxycodone-acetaminophen [Percocet] 1 tab PO Q8H PRN #7 tab 09/29/19 10/03/19 Rx sulfamethoxazole-trimethoprim 1 tab PO BID 09/29/19 10/03/19 History Patient History Medical History Bilateral hydronephrosis (Acute) Coronary artery disease (Chronic) Dyslipidemia (Chronic) History of [place] (myocardial infarction) (Resolved) 2012 Hypertension (Chronic) Left ventricular thrombus ON WARFARIN Metastatic adenocarcinoma to prostate (Chronic) 06/11/19 Prostate cancer metastatic to bone (Chronic) s/p radiation treatment Surgical History History of ankle surgery (Resolved) Left ankle surgery relate to fracture in childhood; History of cardiac cath 2013 - [place] - 1 stent - Follows w/ Dr. Owens History of heart artery stent (Resolved) One stent;2012 History of prostate biopsy History of surgery 06/11/19- Dr. Alexandre ; Cystoscopy, transurethral resection of prostate; bilateral retrograde pyelogram; bilateral ureteral stent placement; left ureteroscopy with ureteral dilation;cystogram, Transurethral Resection Bladder Tumor, large History of tonsillectomy (Resolved) Family History Mother , in her 70s Coronary heart disease Hx of CABG Hypertension Father , 76yo Prostate cancer Brother Prostate cancer Hypertension Brother Diabetes Hypertension Sister Unknown family medical history Other CAD (coronary atherosclerotic disease) No family history of adverse response to anesthesia Social History Preferred Language: [place] Communication Ability: Effective Visual Impairment: No Limitations Hearing Ability: Normal Couples Therapist Required: No Beliefs That Will Affect Care: None marital status: Current Living Situation: Family 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 Other Information That Helps Us Care for You: No Feels Safe at Home: Yes Safety Concerns: Feels Safe At This Time Smoking Status: Former smoker Tobacco Type: cigarettes and smokeless tobacco ; Cigarettes Per Day: 1 PPD x 15yrs off and on ; Second Hand Exposure: No ; Hx Alcohol Use: No Hx Substance Use: No caffeine: Yes (3 cups/day) during the past year weight has: decreased > 10 lbs Review of Systems Review of Systems: All systems reviewed & are unremarkable except as noted in HPI & below Physical Exam Physical Exam: NAD AOx3 Normal respiratory effort Abd soft, nontender, nondistended Pendleton intact draining clear light red urine, no clots noted No pedal edema Results & Data Vital Signs (Past 12 Hours) Vital Signs Temp Pulse Pulse Resp BP BP Pulse Ox 10/04/19 11:40 36.7 C 69 20 125/81 96 10/04/19 08:00 36.8 C 74 18 134/68 95 10/04/19 07:35 76 10/04/19 07:17 37.0 C 81 18 139/85 93 01/21/20 07:13 36.8 C 78 16 131/83 95 10/04/19 06:13 37 C 80 16 136/86 95 10/04/19 05:43 36.9 C 76 16 122/76 95 10/04/19 05:28 36.8 C 77 16 126/79 95 10/04/19 05:07 36.9 C 83 16 128/82 95 10/04/19 04:15 37.1 C 78 20 122/79 96 10/04/19 03:15 37.1 C 83 16 129/82 94 10/04/19 03:01 36.9 C 78 16 132/84 96 10/04/19 02:45 37.1 C 80 16 128/80 95 10/04/19 02:43 37.1 C 80 16 128/80 95 10/04/19 02:30 37.1 C 78 16 123/79 95 10/04/19 02:12 36.8 C 78 18 122/79 96 PG Care Time/CCT Total # of Minutes Spent Total Time Spent with Patient: Total time spent is greater than 50% in coordination of care (as documented) at patient's floor/unit and/or counseling patient: (1) Hematuria Hematuria type: unspecified type Qualified Code(s): R31.9 - Hematuria, unspecified
[2019-10-04] MEDS ORDERED: ABIRATERONE ACETATE PO SCH (17:00)
[2019-10-04] MEDS ORDERED: Heparin IV Low Dose *NO* Bolus IV ONE (17:39)
[2019-10-04] MEDS ORDERED: HEPARIN SODIUM/DEXTROSE 25,000 UNITS/500 ML BAG IV SCH (17:45)
[2019-10-04 18:10] LABS: Hematocrit (blood only) 37.5 % (42-52); Hemoglobin 12.8 g/dL (14.0-18.0); Mean Corpuscular Hemoglobin 29.3 pg (25-34); Mean Corpuscular Volume 85.8 fL (80-100); RDW Coefficient of Variation 14.4 % (11.5-14.5); RDW Standard Deviation 45.5 fL (36.4-46.3); Red Blood Count 4.37 M/uL (4.7-6.1); White Blood Count 5.06 K/uL (4.8-10.8)
[2019-10-04 18:13] LABS: Mean Corpuscular Hgb Conc 34.1 g/dL (32-36); Mean Platelet Volume 10.2 fL (7.4-10.4); Platelet Count 82 K/uL (130-400)
[2019-10-04 18:20] LABS: INR 1.2 (0.9-1.1); Partial Thromboplastin Ratio 1.1; Partial Thromboplastin Time 28.8 Seconds (21.0-31.0); Prothrombin Time 12.2 Seconds (9.0-12.0)
[2019-10-04 18:35] LABS: Basophils # (auto) 0.05 K/uL (0-0.2); Eosinophils # (auto) 0.18 K/uL (0-0.5); Eosinophils % (auto) 3.6 %; Immature Granulocytes # (auto) 0.04 K/uL (0.00-0.02); Immature Granulocytes % (auto) 0.8 %; Lymphocytes # (auto) 1.13 K/uL (1.2-3.4); Lymphocytes % (auto) 22.3 %; Monocytes % (auto) 9.9 %; Neutrophils # (auto) 3.16 K/uL (1.4-6.5); Neutrophils % (auto) 62.4 %
[2019-10-04] MEDS: PANTOprazole 40 MG TAB PO SCH (20:44)
[2019-10-05] MEDS: NSS + 20MEQ KCL 20 MEQ/1,000 ML BAG IV SCH ×2 (03:18→10:04)
[2019-10-05 06:00] LABS: Hematocrit (blood only) 34.5 % (42-52); Hemoglobin 11.6 g/dL (14.0-18.0); Mean Corpuscular Hemoglobin 28.9 pg (25-34); Mean Corpuscular Hgb Conc 33.6 g/dL (32-36); RDW Coefficient of Variation 14.4 % (11.5-14.5); RDW Standard Deviation 45.4 fL (36.4-46.3); Red Blood Count 4.01 M/uL (4.7-6.1); White Blood Count 5.05 K/uL (4.8-10.8)
[2019-10-05 06:13] LABS: Mean Platelet Volume 10.1 fL (7.4-10.4); Platelet Count 93 K/uL (130-400)
[2019-10-05 06:30] LABS: Albumin Level 2.1 gm/dl (3.4-5.0); BUN Creatinine Ratio 11.5 (10-20); Creatinine Clr Calc Pharmacy 75.8 ml/min; Est GFR (African American) 76.4; Est GFR (Non-African American) 65.9
[2019-10-05 06:33] LABS: Albumin Globulin Ratio 0.7 (0.9-2); Bilirubin,Total 1.5 mg/dl (0.2-1); Globulin 3.2 gm/dl (2.5-4.0); Total Protein 5.3 gm/dl (6.4-8.2)
[2019-10-05 06:40] LABS: INR 1.2 (0.9-1.1); Partial Thromboplastin Ratio 1.1; Partial Thromboplastin Time 28.5 Seconds (21.0-31.0); Prothrombin Time 12.2 Seconds (9.0-12.0)
[2019-10-05] MEDS: POTASSIUM CHLORIDE 20 MEQ TABCR PO SCH (07:41)
[2019-10-05] MEDS: PANTOprazole 40 MG TAB PO SCH ×2 (07:41→21:41)
[2019-10-05] MEDS: lisinopriL 20 MG TAB PO SCH (07:41)
[2019-10-05] MEDS: ATORVASTATIN 40 MG TAB PO SCH (07:41)
[2019-10-05] MEDS: ASPIRIN 81 MG ECTAB PO SCH (07:41)
[2019-10-05] MEDS: METOPROLOL TARTRATE 25 MG TAB PO SCH (07:41)
[2019-10-05] MEDS: CHOLECALCIFEROL 1,000 UNITS 25 MCG TAB PO SCH (07:41)
[2019-10-05] MEDS: BICALUTAMIDE 50 MG TAB PO SCH (07:42)
[2019-10-05] MEDS ORDERED: ARGATROBAN CONSULT ACTIVE PRN (08:04)
[2019-10-05] MEDS ORDERED: Heparin IV Low Dose *NO* Bolus IV SCH (09:15)
--- NOTE | 2019-10-05 09:59 | Hospitalist Progress Note ---
Date of Service October 05, 2019 Assessment & Plan (1) Hematuria: Postprocedural bleeding/hematuria due to bilateral ureteral stent removal and left sided replacement as well as resection of bladder head, a complication of care. Hgb has been stable Given vitamin K 5 mg IV in the ER for supratherapeutic INR of 5.6 - INR now 1.2 Consulted urology - they feel that the hematuria is an expected result of his recent procedures and could be expected to persist up to 6 weeks. Pendleton was removed Continue to hold warfarin for now, heparin gtt initiated as below. Will likely have tolerate some amount of hematuria for the next few weeks as patient will need to be anticoagulated due to thrombus. (2) Acute kidney injury: Patient's creatinine 2.65 on admission, now at baseline Avoid nephrotoxic agents. Will discontinue IVF (3) Dark stools: Possible GI bleed - GI consulted - pantoprazole po bid and EGD on Will wait to restart Warfarin until after EGD on NPO after MN on (4) Hypokalemia: Replaced Monitor potassium daily and replenish. (5) Vomiting: Antinausea management with Zofran 4 mg IV every 6 hours as needed (6) Bilateral ureteral obstruction: On CT - Circumferential bladder wall thickening likely indicates chronic bladder outlet obstruction. This is likely accompanied by chronic reflux uropathy and secondary to prostatomegaly. Urology on board (7) Metastatic adenocarcinoma to prostate: Continue monitoring. PSA is improving. Last time PSA was measured on September 16 and it was 0.194, which was significant improvement considering the result of 8.980 in June 2019. Continue Erasmo Fernández DC'd per oncology Consult oncology (8) Left ventricular thrombus: Diagnosed in early July - patient has had about 2 months of treatment at this point Continue to hold Warfarin for now due to GI bleed Low dose heparin gtt May need to tolerate hematuria for the time being and resume Warfarin despite continued hematuria after endoscopy to continue to treat thrombus. (9) Supratherapeutic INR: As the above. INR 1.2 (10) Thrombocytopathia: Platelets as low as 73,000, now rebounding Peripheral smear: remarkable for a normocytic anemia and thrombocytopenia. HIT panel ordered as it appeared from charting that patient had bridged with Lovenox however according to heme/onc this was incorrect and he did not bridge so is not within a window for HIT and it is appropriate to continue with heparin gtt. Consulted heme/onc (11) Urinary tract infection: UC less than 1000 colonies - dc abx (12) Transaminitis: This visit patient has elevated transaminases AST of 190 and ALT of 83 - now trending back down although biliruben is continuing to trend up Liver ultrasound with possible hemangioma - per discussion with Oncology patient has had this finding before and can be set up for further imaging after discharge GI on board (13) History of DC (myocardial infarction): As the above (14) Coronary artery disease: As below. (15) Hypertension: Stable, hold aspirin 81 mg p.o. until after endoscopy, continue lisinopril 20 mg p.o. every morning, continue metoprolol tartrate 25 mg p.o. every morning. Patient with history of DC 2012 (16) Dyslipidemia: Due to elevated transaminases will hold atorvastatin 80 mg p.o. every morning. (17) DVT prophylaxis: SCDs, heparin gtt Subjective Mr. Stern is feeling better today, his nausea has improved. He continues to have black tarry stools ROS Constitutional: no chills, aches, sweats or fever Respiratory: no sob,cough, sputum, or wheezing Cardiac: no cp, sob, palpitations GI: see HPI : no dysuria or hesitancy Extremities: no joint pain or weakness Skin: no rash All other systems reviewed and negative Physical Exam Physical Exam: General: no distress Eyes: normal inspection, PERLL Respiratory: chest non tender, clear to auscultation, normal breath sounds, no respiratory distress, no accessory muscle use Cardiac: regular rate and rhythm, no rub or gallop, no murmur, no edema, no jvd GI/: active bowel sounds, no abd pain or tenderness, soft, non distended Extremities: normal range of motion, normal strength, non tender Neuro/Psych: alert and oriented x 3, normal mood and affect Skin: normal color, dry Results & Data Vital Signs (Past 12 Hours) Vital Signs Temp Pulse Pulse Pulse Resp BP BP 10/05/19 07:41 36.6 C 78 20 135/88 10/05/19 03:27 37.7 C H 73 18 112/65 10/04/19 22:43 37.1 C 78 19 125/77 10/04/19 22:20 74 Pulse Ox 10/05/19 07:41 96 10/05/19 03:27 95 10/04/19 22:43 94 10/04/19 22:20 PG Care Time/CCT Total # of Minutes Spent Total Time Spent with Patient: Total time spent is greater than 50% in coordination of care (as documented) at patient's floor/unit and/or counseling patient: (1) Hematuria Hematuria type: unspecified type Qualified Code(s): R31.9 - Hematuria, unspecified (2) Vomiting Nausea presence: with nausea Vomiting Intractability: non-intractable Vomiting type: unspecified Qualified Code(s): R11.2 - Nausea with vomiting, unspecified
[2019-10-05] MEDS: HEPARIN SODIUM/DEXTROSE 25,000 UNITS/500 ML BAG IV SCH (10:03)
--- NOTE | 2019-10-05 10:11 | Urology Progress Note ---
Date of Service October 05, 2019 Assessment & Plan (1) Hematuria: 64 yo M with multiple comorbidities admitted for vomiting, hematuria, and supratherapeutic INR. mckeon d'c'd per order, has not voided yet. Bladder scan PRN urinary retention x8 hours - order placed. Await EGD tomorrow, stable from perspective. Will continue to monitor peripherally while inpatient. Subjective Pt sitting up in chair this AM. No new issues or concerns. Better appetite today Mckeon d/c'd per order this AM, HNV yet. ROS Constitutional: no chills, aches, sweats or fever Respiratory: no sob,cough, sputum, or wheezing Cardiac: no cp, sob, palpitations GI: see HPI : no dysuria or hesitancy Extremities: no joint pain or weakness Skin: no rash All other systems reviewed and negative Physical Exam Physical Exam: A&Ox3 Resp rate reg abd soft, nontender no LE edema Results & Data Vital Signs (Past 12 Hours) Vital Signs Temp Pulse Pulse Pulse Resp BP BP 10/05/19 07:41 36.6 C 78 20 135/88 10/05/19 03:27 37.7 C H 73 18 112/65 10/04/19 22:43 37.1 C 78 19 125/77 10/04/19 22:20 74 Pulse Ox 10/05/19 07:41 96 10/05/19 03:27 95 10/04/19 22:43 94 10/04/19 22:20 PG Care Time/CCT Total # of Minutes Spent Total Time Spent with Patient: Total time spent is greater than 50% in coordination of care (as documented) at patient's floor/unit and/or counseling patient: (1) Hematuria Hematuria type: unspecified type Qualified Code(s): R31.9 - Hematuria, unspecified
--- NOTE | 2019-10-05 10:16 | Urology Progress Note ---
Date of Service October 05, 2019 Assessment & Plan (1) Hematuria: 64 yo M with multiple comorbidities admitted for vomiting, hematuria, and supratherapeutic INR. mckeon d'c'd per order, has not voided yet. Bladder scan PRN urinary retention x8 hours - order placed. Await EGD tomorrow, stable from perspective. Will continue to monitor peripherally while inpatient. Subjective Pt sitting up in chair this AM. No new issues or concerns. Better appetite today Mckeon d/c'd per order this AM, HNV yet. ROS Constitutional: no chills, aches, sweats or fever Respiratory: no sob,cough, sputum, or wheezing Cardiac: no cp, sob, palpitations GI: see HPI : no dysuria or hesitancy Extremities: no joint pain or weakness Skin: no rash All other systems reviewed and negative Results & Data Vital Signs (Past 12 Hours) Vital Signs Temp Pulse Pulse Pulse Resp BP BP 10/05/19 07:41 36.6 C 78 20 135/88 10/05/19 03:27 37.7 C H 73 18 112/65 10/04/19 22:43 37.1 C 78 19 125/77 10/04/19 22:20 74 Pulse Ox 10/05/19 07:41 96 10/05/19 03:27 95 10/04/19 22:43 94 10/04/19 22:20 PG Care Time/CCT Total # of Minutes Spent Total Time Spent with Patient: Total time spent is greater than 50% in coordination of care (as documented) at patient's floor/unit and/or counseling patient: (1) Hematuria Hematuria type: unspecified type Qualified Code(s): R31.9 - Hematuria, unspecified
[2019-10-05 16:33] LABS: Partial Thromboplastin Ratio 1.3; Partial Thromboplastin Time 35.7 Seconds (21.0-31.0)
[2019-10-05] MEDS: ABIRATERONE ACETATE PO SCH (16:44)
[2019-10-05] MEDS ORDERED: HEPARIN IV BOLUS 3,000 UNITS in SYRINGE 0 ML IV ONE (16:48)
[2019-10-05] MEDS ORDERED: HEPARIN IV BOLUS 4,500 UNITS in SYRINGE 0 ML IV ONE (16:48)
--- NOTE | 2019-10-05 17:16 | Oncology Consultation ---
Date of Consultation October 05, 2019 Assessment & Plan (1) Transaminitis: This may be related to his prostate cancer drug, Abiraterone. He has been off of it since admission and the numbers are trending down some. However, the acuity of that change is somewhat unusual. His bili has also been rising a bit, which we can see in the setting of an acute liver injury. I would monitor these values moving forward. We may need to consider a dose reduction or even a change in his treatment. Present on Admission?: Yes (2) Thrombocytopathia: Mr. Stern's thrombocytopenia is not related to HIT. He has not had any recent heparin or Lovenox exposure until he was admitted, at which point his platelets were already falling. Possible explanations include a reaction to the Keflex he was on after his bladder procedure, consumption related to bleeding, or impaired marrow function related to his prostate cancer. The Keflex was discontinued on 10/04 and his platelets were up today, which further supports this idea. I would trend his counts for now. Present on Admission?: Yes History of Present Illness Reason for Consultation: Thrombocytopenia Prostate cancer Attending Physician: Bob Bernard MD History of Present Illness Mr. Stern is a 64 year old man with a history of HTN and CAD s/p SD. He was diagnosed with metastatic prostate cancer in late May, after presenting with a urinary outlet obstruction. He was started on Casodex and then Lupron. I started him on abiraterone and prednisone about 6 weeks ago. Since that time, he has had a good response in his PSA. He underwent a cystoscopy with TURP, removal of his right ureteral stent, and change of his left. He came to the ER on 10/03 complaining of hematuria, nausea, vomiting, and possibly some hematemesis. His INR was supratherapeutic at 5.6. He also was mildly anemic and thrombocytopenic. On the evening of 10/03, his platelet count fell to the 70s and was low until this morning, when it was elevated again. It is now up to 93. He met with cardiology prior to his cysto and the possibility of holding his warfarin and bridging him with Lovenox was discussed. However, this was not done and he remained on warfarin through his procedure. He has not received any Lovenox since he started warfarin in July for an intracardiac thrombus. He reports some intermittent dysphagia symptoms, though they come and go and are not happening currently. He also may have had some dark stools. He is scheduled for an EGD tomorrow. Allergies Allergy/AdvReac Type Severity Reaction Status Date / Time No Known Allergies Allergy Verified 10/03/19 11:53 Home Medications Home Medications Medication Instructions Recorded Confirmed Type atorvastatin 80 mg tablet 80 mg PO QAM 06/17/19 10/03/19 History leuprolide (4 month) 30 mg (4 30 mg IM Q16W 07/13/19 10/03/19 History month) intramuscular syringe kit lisinopril 10 mg tablet 20 mg PO QAM 07/13/19 10/03/19 History sildenafil 50 mg tablet 50 mg PO DAILY PRN 07/13/19 10/03/19 History denosumab 120 mg/1.7 mL (70 mg/mL) 120 mg SQ MONTHLY ml 07/20/19 10/03/19 History subcutaneous solution metoprolol tartrate 25 mg PO QAM 07/22/19 10/03/19 History aspirin 81 mg PO QAM 07/23/19 10/03/19 History bicalutamide [Casodex] 50 mg PO QAM 07/23/19 10/03/19 History cholecalciferol (vitamin D3) 2,000 units PO QAM 07/23/19 10/03/19 History [Vitamin D3] warfarin 2 mg tablet 2 mg PO UD 08/08/19 10/03/19 History abiraterone [Zytiga] 1,000 mg PO DAILY@1500 09/22/19 10/03/19 History cephalexin [Keflex] 500 mg PO BID #10 cap 09/29/19 10/03/19 Rx oxycodone-acetaminophen [Percocet] 1 tab PO Q8H PRN #7 tab 09/29/19 10/03/19 Rx sulfamethoxazole-trimethoprim 1 tab PO BID 09/29/19 10/03/19 History Patient History Medical History Bilateral hydronephrosis (Acute) Coronary artery disease (Chronic) Dyslipidemia (Chronic) History of [place] (myocardial infarction) (Resolved) 2012 Hypertension (Chronic) Left ventricular thrombus ON WARFARIN Metastatic adenocarcinoma to prostate (Chronic) 06/11/19 Prostate cancer metastatic to bone (Chronic) s/p radiation treatment Surgical History History of ankle surgery (Resolved) Left ankle surgery relate to fracture in childhood; History of cardiac cath 2012 - [place] - 1 stent - Follows w/ Dr. Owens History of heart artery stent (Resolved) One stent;2012 History of prostate biopsy History of surgery 06/11/19- Dr. Alexandre ; Cystoscopy, transurethral resection of prostate; bilateral retrograde pyelogram; bilateral ureteral stent placement; left ureteroscopy with ureteral dilation;cystogram, Transurethral Resection Bladder Tumor, large History of tonsillectomy (Resolved) Family History Mother , in her 70s Coronary heart disease Hx of CABG Hypertension Father , 76yo Prostate cancer Brother Prostate cancer Hypertension Brother Diabetes Hypertension Sister Unknown family medical history Other CAD (coronary atherosclerotic disease) No family history of adverse response to anesthesia Social History Preferred Language: [place] Communication Ability: Effective Visual Impairment: No Limitations Hearing Ability: Normal Career Services Representative Required: No Beliefs That Will Affect Care: None marital status: Current Living Situation: Family 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 Other Information That Helps Us Care for You: No Feels Safe at Home: Yes Safety Concerns: Feels Safe At This Time Smoking Status: Former smoker Tobacco Type: cigarettes and smokeless tobacco ; Cigarettes Per Day: 1 PPD x 15yrs off and on ; Second Hand Exposure: No ; Hx Alcohol Use: No Hx Substance Use: No caffeine: Yes (3 cups/day) during the past year weight has: decreased > 10 lbs Review of Systems Review of Systems: All systems reviewed & are unremarkable except as noted in HPI & below Physical Exam Constitutional: healthy appearing and comfortable; no acute distress ENMT: external ear and nose normal, oropharynx normal Respiratory: normal respiratory effort, lungs clear to auscultation Cardiovascular: RRR, no murmur, no edema Gastrointestinal (Abdomen): Inspection/Auscultation: normal bowel sounds Percussion/Palpation: abdomen soft; abdomen nontender Skin: no rashes, warm and dry Psychiatric: A+Ox3, euthymic affect Results & Data Vital Signs (Past 12 Hours) Vital Signs Temp Pulse Pulse Resp BP Pulse Ox 10/05/19 15:23 36.8 C 71 18 119/75 97 10/05/19 11:27 36.6 C 67 18 111/71 96 10/05/19 10:00 72 10/05/19 07:41 36.6 C 78 20 135/88 96 Laboratory Results Laboratory Tests 09/15/19 09/15/19 10/03/19 13:51 13:51 11:05 WBC 5.25 6.43 Hgb 13.1 L 12.3 L Plt Count 213 118 L Total Bilirubin AST 12 L ALT 17 Albumin 10/03/19 10/03/19 10/04/19 11:05 21:10 17:55 WBC 4.42 L 5.06 Hgb 10.8 L 12.8 L Plt Count 79 L 82 L Total Bilirubin 1.2 H AST 190 H ALT 83 H Albumin 3.0 L 10/05/19 10/05/19 05:44 05:44 WBC 5.05 Hgb 11.6 L Plt Count 93 L Total Bilirubin 1.5 H AST 62 H ALT 46 Albumin 2.[address] A/P without contrast, 10/03/19: IMPRESSION: 1. Multifocal sclerotic osseous lesions, which are largely stable from prior exam though increasingly sclerotic. This may represent posttreatment change of underlying osseous metastatic disease. 2. Circumferential bladder wall thickening likely indicates chronic bladder outlet obstruction. This is likely accompanied by chronic reflux uropathy and secondary to prostatomegaly. 3. Left ureteral stent in place with a flaccid left renal collecting system. No convincing evidence of hydronephrosis. Inflammatory changes of the left renal collecting system are most likely reactive to the presence of the stent. Correlate with urinalysis to exclude upper tract infection. 4. No gross evidence of an obstructing calculus. Limited evaluation for underlying neoplasm. 5. Diverticulosis coli. No diverticulitis. 6. Cholelithiasis. Liver US, 10/04/19: IMPRESSION: 1. Indeterminate hyperechoic liver lesions. These most likely represent benign hemangiomas and may have been present on prior contrast-enhanced CT from 06/23/2019 amidst scattered hepatic cysts. If the patient has a history of hepatocellular risk factors or known malignancy, further evaluation with ded icated liver protocol CT or MR could be considered depending on the level of clinical concern.
[2019-10-06 00:50] LABS: Partial Thromboplastin Ratio 1.6; Partial Thromboplastin Time 43.1 Seconds (21.0-31.0)
[2019-10-06] MEDS ORDERED: HEPARIN IV BOLUS 3,000 UNITS in SYRINGE 0 ML IV ONE (01:06)
[2019-10-06] MEDS: HEPARIN SODIUM/DEXTROSE 25,000 UNITS/500 ML BAG IV SCH (05:57)
[2019-10-06 06:28] LABS: Hematocrit (blood only) 35.5 % (42-52); Hemoglobin 11.9 g/dL (14.0-18.0); Mean Corpuscular Hgb Conc 33.5 g/dL (32-36); Mean Corpuscular Volume 86.4 fL (80-100); Mean Platelet Volume 10.3 fL (7.4-10.4); Platelet Count 111 K/uL (130-400); RDW Coefficient of Variation 14.2 % (11.5-14.5); RDW Standard Deviation 45.2 fL (36.4-46.3); Red Blood Count 4.11 M/uL (4.7-6.1); White Blood Count 4.69 K/uL (4.8-10.8)
[2019-10-06 06:50] LABS: INR 1.2 (0.9-1.1); Prothrombin Time 12.5 Seconds (9.0-12.0)
[2019-10-06 07:04] LABS: Albumin Level 2.1 gm/dl (3.4-5.0); Est GFR (African American) 96.3; Est GFR (Non-African American) 83.1; Potassium 3.7 mmol/L (3.5-5.1)
[2019-10-06 07:08] LABS: Albumin Globulin Ratio 0.6 (0.9-2); Globulin 3.5 gm/dl (2.5-4.0); Total Protein 5.6 gm/dl (6.4-8.2)
--- NOTE | 2019-10-06 08:30 | Gastroenterology Progress Note ---
Date of Service October 06, 2019 Assessment & Plan (1) Anemia: Proceed with EGD. risks/benefits and procedure discussed with patient, who agrees to proceed keep NPO (2) Dark stools: Subjective NPO for EGD today, on heparin gtt overnight, hgb noted to be 11.9 this morning, BUN wnl. Review of Systems Constitutional: no fever and no chills Respiratory: no cough, no dyspnea and no dyspnea on exertion Cardiovascular: no chest pain and no dyspnea Gastrointestinal: as per Subjective / HPI Psychiatric: no depression and no anxiety Physical Exam Constitutional: WD/WN, vitals as above Respiratory: normal respiratory effort, lungs clear to auscultation Cardiovascular: RRR, no murmur, no edema Gastrointestinal (Abdomen): normal bowel sounds, soft, nontender, no hepatosplenomegaly Musculoskeletal: no lower extremity edema Psychiatric: A+Ox3, euthymic affect Results & Data Vital Signs (Past 12 Hours) Vital Signs Temp Pulse Pulse Resp BP Pulse Ox 10/06/19 07:13 36.9 C 71 20 104/61 95 10/06/19 04:00 37.1 C 68 18 112/68 96 10/06/19 00:28 73 10/06/19 00:00 37.0 C 79 20 109/68 95 PG Care Time/CCT Total # of Minutes Spent Total Time Spent with Patient: Total time spent is greater than 50% in coordination of care (as documented) at patient's floor/unit and/or counseling patient:
--- NOTE | 2019-10-06 09:03 | Hospitalist Progress Note ---
Date of Service October 06, 2019 Assessment & Plan (1) Hematuria: Postprocedural bleeding/hematuria due to bilateral ureteral stent removal and left sided replacement as well as resection of bladder head, a complication of care. Hgb has been stable Given vitamin K 5 mg IV in the ER for supratherapeutic INR of 5.6 - INR now 1.2 Consulted urology - they feel that the hematuria is an expected result of his recent procedures and could be expected to persist up to 6 weeks. Pendleton was removed Resume warfarin and heparin drip tonight Will likely have tolerate some amount of hematuria for the next few weeks as patient will need to be anticoagulated due to thrombus. (2) Acute kidney injury: Patient's creatinine 2.65 on admission, now at baseline Avoid nephrotoxic agents. (3) Dark stools: EGD 10/06 with bleeding esophageal ulcer that was clipped Per GI recs: NPO today, can advance to clear liquids starting tomorrow morning protonix drip for 72 hours, then BID thereafter for 3 months ok to resume warfarin tonight will need repeat EGD in no later than 3 months Ok with bridging with heparin drip starting tonight (4) Hypokalemia: Replaced (5) Vomiting: Antinausea management with Zofran 4 mg IV every 6 hours as needed (6) Bilateral ureteral obstruction: On CT - Circumferential bladder wall thickening likely indicates chronic bladder outlet obstruction. This is likely accompanied by chronic reflux uropathy and secondary to prostatomegaly. Urology on board (7) Metastatic adenocarcinoma to prostate: Continue monitoring. PSA is improving. Last time PSA was measured on September 16 and it was 0.194, which was significant improvement considering the result of 8.980 in June 2019. Continue Zytiga, Casbreanne DC'd per oncology Consult oncology (8) Left ventricular thrombus: Diagnosed in early July - patient has had about 2 months of treatment at this point Resume warfarin, heparin gtt for bridge May need to tolerate hematuria for the time being and resume Warfarin despite continued hematuria after endoscopy to continue to treat thrombus. (9) Supratherapeutic INR: On admission, now resolved INR 1.2 (10) Thrombocytopathia: Platelets as low as 73,000, now rebounding Peripheral smear: remarkable for a normocytic anemia and thrombocytopenia. HIT panel ordered as it appeared from charting that patient had bridged with Lovenox however according to heme/onc this was incorrect and he did not bridge so is not within a window for HIT and it is appropriate to continue with heparin gtt. Likely secondary to Keflex Consulted heme/onc (11) Urinary tract infection: UC less than 1000 colonies - dc abx (12) Transaminitis: This visit patient has elevated transaminases AST of 190 and ALT of 83 - now trending back down and bili elevation resolved Liver ultrasound with possible hemangioma - per discussion with Oncology patient has had this finding before and can be set up for further imaging after discharge GI on board (13) History of [place] (myocardial infarction): (14) Coronary artery disease: Echo this admission similar to previous: EF 40 -45%, Akinesis and thinning of the mid and apical septum, mid and apical inferior wall, mid anteroseptum and apex, mod left ventricular hypertrophy of the basal anteroseptum. Apical thrombus is now laminated. Previous echo had read his EF as more like 45-50%. (15) Hypertension: Stable, continue lisinopril 20 mg p.o. every morning, continue metoprolol tartrate 25 mg p.o. every morning. Patient with history of [place] 2012 (16) Dyslipidemia: Due to elevated transaminases will hold atorvastatin 80 mg p.o. every morning. (17) DVT prophylaxis: SCDs, heparin gtt Results & Data Vital Signs (Past 12 Hours) Vital Signs Temp Pulse Pulse Resp BP Pulse Ox 10/06/19 07:13 36.9 C 71 20 104/61 95 10/06/19 04:00 37.1 C 68 18 112/68 96 10/06/19 00:28 73 10/06/19 00:00 37.0 C 79 20 109/68 95 PG Care Time/CCT Total # of Minutes Spent Total Time Spent with Patient: Total time spent is greater than 50% in coordination of care (as documented) at patient's floor/unit and/or counseling patient: Coding Level of Care Code 51860 Subseq Hosp Care Lvl 3 Diagnoses Hematuria R31.9 Hematuria type: unspecified type Acute kidney injury N17.9 Dark stools R19.5 Hypokalemia E87.6 Vomiting R11.2 Nausea presence: with nausea Vomiting Intractability: non-intractable Vomiting type: unspecified Bilateral ureteral obstruction N13.5 Metastatic adenocarcinoma to prostate C79.82 Left ventricular thrombus I51.3 Supratherapeutic INR R79.1 Thrombocytopathia D69.1 Urinary tract infection N39.0 Transaminitis R74.0 History of [place] (myocardial infarction) I25.2 Coronary artery disease I25.10 Hypertension I10 Dyslipidemia E78.5 DVT prophylaxis Z29.9 (1) Hematuria Hematuria type: unspecified type Qualified Code(s): R31.9 - Hematuria, unspecified (2) Vomiting Nausea presence: with nausea Vomiting Intractability: non-intractable Vomiting type: unspecified Qualified Code(s): R11.2 - Nausea with vomiting, unspecified
[2019-10-06] MEDS: ASPIRIN 81 MG ECTAB PO SCH (10:16)
[2019-10-06] MEDS: METOPROLOL TARTRATE 25 MG TAB PO SCH (10:19)
[2019-10-06] MEDS: ATORVASTATIN 40 MG TAB PO SCH (10:19)
[2019-10-06] MEDS: CHOLECALCIFEROL 1,000 UNITS 25 MCG TAB PO SCH (10:20)
[2019-10-06] MEDS: lisinopriL 20 MG TAB PO SCH (10:20)
[2019-10-06] MEDS: PANTOprazole 40 MG TAB PO SCH (10:20)
--- NOTE | 2019-10-06 12:47 | Anesthesiology Consultation ---
Date of Service October 06, 2019 Assessment & Plan Chart Review Chart Review: Acceptable Risk for Surgery and Patient NOT seen in Pre Admission Testing Consults Requested none History Surgery Operation Date: 10/06/19 16:00 Proposed Procedures p Esophagogastroduodenoscopy Dr. Collazo - Delonte Collazo MD Height/Weight Height: 5 ft 10 in Weight: 103 kg Allergies Allergy/AdvReac Type Severity Reaction Status Date / Time No Known Allergies Allergy Verified 10/03/19 11:53 Medications Home Medications Medication Instructions Recorded Confirmed Last Taken atorvastatin 80 mg tablet 80 mg PO QAM 06/17/19 10/03/19 10/02/19 leuprolide (4 month) 30 mg (4 30 mg IM Q16W 07/13/19 10/03/19 06/21/19 month) intramuscular syringe kit lisinopril 10 mg tablet 20 mg PO QAM 07/13/19 10/03/19 10/02/19 sildenafil 50 mg tablet 50 mg PO DAILY PRN 07/13/19 10/03/19 09/28/19 08:00 denosumab 120 mg/1.7 mL (70 mg/mL) 120 mg SQ MONTHLY ml 07/20/19 10/03/19 10/03/19 subcutaneous solution metoprolol tartrate 25 mg PO QAM 07/22/19 10/03/19 10/02/19 aspirin 81 mg PO QAM 07/23/19 10/03/19 10/02/19 bicalutamide [Casodex] 50 mg PO QAM 07/23/19 10/03/19 10/02/19 cholecalciferol (vitamin D3) 2,000 units PO QAM 07/23/19 10/03/19 10/02/19 [Vitamin D3] warfarin 2 mg tablet 2 mg PO UD 08/08/19 10/03/19 10/02/19 18:00 2 mg abiraterone [Zytiga] 1,000 mg PO DAILY@1500 09/22/19 10/03/19 10/02/19 cephalexin [Keflex] 500 mg PO BID #10 cap 09/29/19 10/03/19 10/02/19 21:00 oxycodone-acetaminophen [Percocet] 1 tab PO Q8H PRN #7 tab 09/29/19 10/03/19 10/02/19 sulfamethoxazole-trimethoprim 1 tab PO BID 09/29/19 10/03/19 10/02/19 21:00 Active Medications Generic Name Dose Route Start Last Admin Trade Name Chao PRN Reason Stop Dose Admin Abiraterone Acetate 4 ea 10/05/19 16:00 10/05/19 16:44 Zytiga PO 11/04/19 15:59 4 ea DAILY@1600 JOCELYN Administration Aspirin 81 mg 10/04/19 09:00 10/06/19 10:16 Ecotrin Ectab PO 11/03/19 08:59 Not Given QAM JOCELYN Atorvastatin Calcium 80 mg 10/04/19 09:00 10/06/19 10:19 Lipitor PO 11/03/19 08:59 80 mg QAM JOCELYN Administration Heparin Sodium/Dextrose 25,000 units in 500 mls @ 0 mls/hr 10/05/19 08:30 10/06/19 08:00 Heparin Sodium/Dextrose IV 11/04/19 08:29 0 units/hr .Q0M JOCELYN 0 mls/hr Titration Protocol 0 UNITS/HR Lisinopril 20 mg 10/04/19 09:00 10/06/19 10:20 Zestril PO 11/03/19 08:59 20 mg QAM JOCELYN Administration Metoprolol Tartrate 25 mg 10/04/19 09:00 10/06/19 10:19 Lopressor PO 11/03/19 08:59 25 mg QAM JOCELYN Administration Pantoprazole Sodium 40 mg 10/04/19 21:00 10/06/19 10:20 Protonix PO 11/03/19 20:59 40 mg BID JOCELYN Administration Vitamin D 2,000 units 10/04/19 09:00 10/06/19 10:20 Vitamin D3 PO 11/03/19 08:59 2,000 units QAM JOCELYN Administration NPO Date Last Intake of Fluids: 10/06/19 Time Last Intake of Fluids: 00:00 Date Last Intake of Solids: 10/05/19 Time Last Intake of Solids: 17:00 Past Medical History Medical History Bilateral hydronephrosis (Acute) Coronary artery disease (Chronic) Dyslipidemia (Chronic) History of [place] (myocardial infarction) (Resolved) 2012 Hypertension (Chronic) Left ventricular thrombus ON WARFARIN Metastatic adenocarcinoma to prostate (Chronic) 06/11/19 Prostate cancer metastatic to bone (Chronic) s/p radiation treatment Past Family History Family History Mother , in her 70s Coronary heart disease Hx of CABG Hypertension Father , 76yo Prostate cancer Brother Prostate cancer Hypertension Brother Diabetes Hypertension Sister Unknown family medical history Other CAD (coronary atherosclerotic disease) No family history of adverse response to anesthesia Past Surgical History Surgical History History of ankle surgery (Resolved) Left ankle surgery relate to fracture in childhood; History of cardiac cath 2012 - [place] - 1 stent - Follows w/ Dr. Owens History of heart artery stent (Resolved) One stent;2012 History of prostate biopsy History of surgery 06/11/19- Dr. Alexandre ; Cystoscopy, transurethral resection of prostate; bilateral retrograde pyelogram; bilateral ureteral stent placement; left ureteroscopy with ureteral dilation;cystogram, Transurethral Resection Bladder Tumor, large History of tonsillectomy (Resolved) Social History Smoking Status: Former smoker tobacco type: cigarettes and smokeless tobacco Smoking cigarettes per day: 1 PPD x 15yrs off and on Hx Alcohol Use: No Alcohol type: beer Hx Substance Use: No substance use type: does not use Physical Exam Vital Signs Last Vital Signs Temp 36.7 C 10/06/19 12:25 Pulse 69 10/06/19 12:25 Resp 16 10/06/19 12:25 BP 141/95 H 10/06/19 12:25 Pulse Ox 96 10/06/19 12:25 Testing Laboratory Results 10/06/19 06:16 10/06/19 06:16 PT 12.5 Seconds (9.0-12.0) H 10/06/19 06:16 INR 1.2 (0.9-1.1) H 10/06/19 06:16 APTT 54.0 Seconds (21.0-31.0) H* 10/06/19 06:16 Urine Color Red 10/03/19 12:45 Urine Appearance Cloudy (Clear) A 10/03/19 12:45 Urine pH (4.5-7.5) 10/03/19 12:45 Ur Specific [place] 1.018 (1.000-1.030) 10/03/19 12:45 Urine Protein (Negative) 10/03/19 12:45 Urine Glucose (UA) (Negative) 10/03/19 12:45 Urine Ketones (Negative) 10/03/19 12:45 Urine Nitrite (Negative) 10/03/19 12:45 Ur Leukocyte Esterase (Negative) 10/03/19 12:45 Urine RBC >30 /hpf (0-4) H 10/03/19 12:45 Urine WBC >30 /hpf (0-5) H 10/03/19 12:45 Ur Epithelial Cells 5-10 /lpf (0-5) H 10/03/19 12:45 Blood Type O Positive 10/03/19 21:10 Antibody Screen NEGATIVE 10/03/19 21:10 10/03/19 12:45 Urine Culture - Final Urine,Clean Catch No growth - less than 1,000 colonies/mL.
[2019-10-06] MEDS ORDERED: ePHEDrine sulfate 50 MG/ML AMP IV PRN (12:50)
[2019-10-06] MEDS ORDERED: ATROPINE SULFATE 0.1 MG/ML 10ML SYR IV PRN (12:50)
[2019-10-06] MEDS ORDERED: LIDOCAINE HCL 2% 2 ML VIAL/AMP(20MG/ML) INFIL ONE (13:10)
[2019-10-06] MEDS ORDERED: MIDAZOLAM HCL 1 MG/ML 2ML VIAL ONE (13:13)
[2019-10-06] MEDS ORDERED: PROPOFOL IV EMULSION 10 MG/ML 20 ML VIAL IV ONE (13:29)
[2019-10-06] MEDS ORDERED: ONDANSETRON INJ 2 MG/ML 2 ML VIAL ONE (13:30)
--- NOTE | 2019-10-06 13:36 | GI REPORT ---
Patient Name: Cade Stern Procedure Date: 10/06/2019 1:05 PM Date of : 1955 Admit Type: Inpatient Age: 64 Gender: Male Attending MD: Delonte Collazo MD Procedure: Upper GI endoscopy Providers: Delonte Collazo MD Referring MD: Referred Self Indications: Iron deficiency anemia secondary to chronic blood loss, Melena Medicines: Monitored Anesthesia Care Complications: No immediate complications. Estimated blood loss: None. Estimated Blood Loss: Estimated blood loss: none. Procedure: Pre-Anesthesia Assessment: - Prior Anticoagulants: The patient has taken no previous anticoagulant or antiplatelet agents. - ASA Grade Assessment: IV - A patient with severe systemic disease that is a constant threat to life. After obtaining informed consent, the endoscope was passed under direct vision. Throughout the procedure, the patient's blood pressure, pulse, and oxygen saturations were monitored continuously. The Endoscope was introduced through the mouth, and advanced to the second part of duodenum. The upper GI endoscopy was accomplished without difficulty. The patient tolerated the procedure well. Findings: A medium-sized hiatal hernia was present. One linear esophageal ulcer with oozing blood and stigmata of recent bleeding was found. Area was successfully injected with 4 mL of a 1:10,000 solution of epinephrine for hemostasis. For hemostasis, two hemostatic clips were successfully placed. There was no bleeding at the end of the procedure. Estimated blood loss: none. The entire examined stomach was normal. The duodenal bulb and second portion of the duodenum were normal. Impression: - Medium-sized hiatal hernia. - Bleeding esophageal ulcer. Injected. Clips were placed. - Normal stomach. - Normal duodenal bulb and second portion of the duodenum. - No specimens collected. Recommendation: - Return patient to [facility] for ongoing care. - NPO today. can advance to clear liquids starting tomorrow morning - protonix drip for 72 hours total, then protonix 40 mg BID thereafter for a minimum of 3 months - supportive care - ok to resume warfarin starting tonight -will need a repeat EGD in no later than 3 months Delonte Collazo MD 10/06/2019 1:35:34 PM This report has been signed electronically. Note Initiated On: 10/06/2019 1:05 PM Number of Addenda: 0 I attest to the content of the Intraoperative Record and orders documented therein, exceptions below {[id number]}
--- NOTE | 2019-10-06 13:39 | Communication Note ---
Date of Service: October 06, 2019 GI brief procedure note: EGD noted to have an ulcer at the GE junction with clot present and oozing; injected with 4 mL of 1:10,000 epinephrine and 2 clips placed with hemostasis achieved. hiatal hernia also noted, exam otherwise normal. Recs: NPO today, can advance to clear liquids starting tomorrow morning protonix drip for 72 hours, then BID thereafter for 3 months ok to resume warfarin tonight will need repeat EGD in no later than 3 months rest as per primary team Delonte Collazo MD Gastroenterology
[2019-10-06] MEDS ORDERED: PANTOprazole 80 MG in DEXTROSE 5% 100 ML IV ONE (15:15)
--- NOTE | 2019-10-06 15:29 | Anesthesiology Progress Note ---
Date of Service October 06, 2019 Anesthesia Post Procedure Vital Signs Vital Signs: Temp Pulse Pulse Resp BP BP Pulse Ox 10/06/19 14:29 36.7 C 72 16 121/85 96 10/06/19 14:08 74 16 136/94 96 10/06/19 13:52 73 16 132/82 97 10/06/19 13:42 80 16 117/64 95 10/06/19 12:25 36.7 C 69 16 141/95 H 141/95 H 96 10/06/19 11:20 36.7 C 69 20 125/83 97 10/06/19 10:17 119/82 10/06/19 08:00 72 10/06/19 07:13 36.9 C 71 20 104/61 95 10/06/19 04:00 37.1 C 68 18 112/68 96 10/06/19 00:28 73 10/06/19 00:00 37.0 C 79 20 109/68 95 10/05/19 19:17 36.8 C 74 18 132/87 97 10/05/19 16:00 71 Transfer of Care Handoff Completed per policy Notes Mental Status: alert / awake / arousable Patient Amnestic to Procedure: Yes Nausea / Vomiting: adequately controlled Pain: adequately controlled Airway Patency, RR, SpO2: stable & adequate BP & HR: stable & adequate Hydration State: stable & adequate Anesthetic Complications: no major complications apparent and Pt Satisfied with anesthetic care
[2019-10-06] MEDS: PANTOprazole 40 MG in DEXTROSE 5% 100 ML IV SCH ×2 (16:31→21:08)
[2019-10-06] MEDS: WARFARIN SOD 5 MG TAB PO SCH (18:15)
[2019-10-06] MEDS: ABIRATERONE ACETATE PO SCH (18:19)
[2019-10-06] MEDS ORDERED: Nursing to Pharmacy Communication ONE (19:38)
[2019-10-07] MEDS: PANTOprazole 40 MG in DEXTROSE 5% 100 ML IV SCH ×5 (01:43→21:25)
[2019-10-07 03:13] LABS: Hemoglobin 11.2 g/dL (14.0-18.0); Mean Corpuscular Hemoglobin 29.2 pg (25-34); Mean Corpuscular Hgb Conc 33.9 g/dL (32-36); Mean Corpuscular Volume 85.9 fL (80-100); Mean Platelet Volume 9.6 fL (7.4-10.4); Platelet Count 131 K/uL (130-400); RDW Coefficient of Variation 14.1 % (11.5-14.5); RDW Standard Deviation 44.2 fL (36.4-46.3); Red Blood Count 3.84 M/uL (4.7-6.1); White Blood Count 4.41 K/uL (4.8-10.8)
[2019-10-07 03:22] LABS: Partial Thromboplastin Ratio 1.5; Partial Thromboplastin Time 41.7 Seconds (21.0-31.0)
[2019-10-07 03:39] LABS: Albumin Globulin Ratio 0.6 (0.9-2); Albumin Level 2.1 gm/dl (3.4-5.0); BUN Creatinine Ratio 6.7 (10-20); Bilirubin,Total 1.1 mg/dl (0.2-1); Calcium 6.7 mg/dl (8.5-10.1); Est GFR (African American) 96.3; Est GFR (Non-African American) 83.1; Globulin 3.5 gm/dl (2.5-4.0); Potassium 3.3 mmol/L (3.5-5.1); Total Protein 5.6 gm/dl (6.4-8.2)
[2019-10-07] MEDS ORDERED: HEPARIN IV BOLUS 3,000 UNITS in SYRINGE 0 ML IV STA (03:45)
[2019-10-07] MEDS: HEPARIN SODIUM/DEXTROSE 25,000 UNITS/500 ML BAG IV SCH ×3 (04:22→21:27)
--- NOTE | 2019-10-07 07:59 | Anesthesiology Progress Note ---
Date of Service October 07, 2019 Anesthesia Post Procedure Vital Signs Vital Signs: Temp Pulse Pulse Resp BP BP Pulse Ox 10/07/19 07:41 36.5 C 76 20 139/87 97 10/07/19 03:45 36.9 C 73 16 137/81 95 10/07/19 00:00 71 10/06/19 23:48 37.1 C 75 18 113/62 95 10/06/19 19:07 36.9 C 70 18 134/83 97 10/06/19 19:00 73 10/06/19 14:29 36.7 C 72 16 121/85 96 10/06/19 14:08 74 16 136/94 96 10/06/19 13:52 73 16 132/82 97 10/06/19 13:42 80 16 117/64 95 10/06/19 12:25 36.7 C 69 16 141/95 H 141/95 H 96 10/06/19 11:20 36.7 C 69 20 125/83 97 10/06/19 10:17 119/82 10/06/19 08:00 72 Notes Mental Status: alert / awake / arousable and participated in evaluation Patient Amnestic to Procedure: Yes Nausea / Vomiting: adequately controlled Pain: adequately controlled Airway Patency, RR, SpO2: stable & adequate BP & HR: stable & adequate Hydration State: stable & adequate Anesthetic Complications: no major complications apparent and Pt Satisfied with anesthetic care
[2019-10-07] MEDS: ATORVASTATIN 40 MG TAB PO SCH (08:11)
[2019-10-07] MEDS: ASPIRIN 81 MG ECTAB PO SCH (08:11)
[2019-10-07] MEDS: lisinopriL 20 MG TAB PO SCH (08:12)
[2019-10-07] MEDS: CHOLECALCIFEROL 1,000 UNITS 25 MCG TAB PO SCH (08:12)
[2019-10-07] MEDS: METOPROLOL TARTRATE 25 MG TAB PO SCH (08:12)
[2019-10-07] MEDS ORDERED: POTASSIUM CHLORIDE 20 MEQ TABCR PO ONE (08:30)
[2019-10-07] MEDS: CALCIUM CARBONATE 1250MG TAB PO SCH ×2 (10:22→21:25)
[2019-10-07 11:13] LABS: Partial Thromboplastin Ratio 2.1
[2019-10-07 11:39] LABS: Partial Thromboplastin Time 57.8 Seconds (21.0-31.0)
--- NOTE | 2019-10-07 12:27 | Gastroenterology Progress Note ---
Date of Service October 07, 2019 Assessment & Plan (1) Esophageal ulcer with bleeding: s/p EGD with hemostasis 10/06/19. currently stable without overt bleeding. Recs: advance diet as tolerated continue protonix drip for a total of 72 hours, then switch to protonix 40 mg BID for 3 months minimum will need repeat EGD in no later than 3 months anticoagulation as per primary team patient can follow up with me in the office 2-3 weeks after discharge (2) Anemia: Subjective overnight no events, denies hematemesis, hematochezia, odynophagia. tolerating clear liquid diet this morning. Hgb noted to be 11.2 this morning. s/p EGD with hemostasis of esophageal ulcer on 10/06/19. currently on PPI drip. Review of Systems Constitutional: no fever and no chills Respiratory: no cough, no dyspnea and no dyspnea on exertion Cardiovascular: no chest pain and no dyspnea Gastrointestinal: as per Subjective / HPI Psychiatric: no depression and no anxiety Physical Exam Constitutional: WD/WN, vitals as above Respiratory: normal respiratory effort, lungs clear to auscultation Cardiovascular: RRR, no murmur, no edema Gastrointestinal (Abdomen): normal bowel sounds, soft, nontender, no hepatosplenomegaly Musculoskeletal: no lower extremity edema Psychiatric: A+Ox3, euthymic affect Results & Data Vital Signs (Past 12 Hours) Vital Signs Temp Pulse Pulse Resp BP Pulse Ox 10/07/19 11:39 36.7 C 69 20 128/79 96 10/07/19 08:00 70 10/07/19 07:41 36.5 C 76 20 139/87 97 10/07/19 03:45 36.9 C 73 16 137/81 95 PG Care Time/CCT Total # of Minutes Spent Total Time Spent with Patient: Total time spent is greater than 50% in coordination of care (as documented) at patient's floor/unit and/or counseling patient: Coding Level of Care Code 94749 Subseq Hosp Care Lvl 3 Diagnoses Esophageal ulcer with bleeding K22.11 Anemia D64.9
[2019-10-07] MEDS: WARFARIN SOD 5 MG TAB PO SCH (16:02)
[2019-10-07] MEDS: ABIRATERONE ACETATE PO SCH (16:04)
--- NOTE | 2019-10-07 16:11 | Hospitalist Progress Note ---
Date of Service October 07, 2019 Assessment & Plan (1) Hematuria: Postprocedural bleeding/hematuria due to bilateral ureteral stent removal and left sided replacement as well as resection of bladder head, a complication of care. Hgb has been stable Given vitamin K 5 mg IV in the ER for supratherapeutic INR of 5.6 - INR now 1.2 Consulted urology - they feel that the hematuria is an expected result of his recent procedures and could be expected to persist up to 6 weeks. Resumed warfarin 10/06, continue heparin drip to bridge. Will likely have tolerate some amount of hematuria for the next few weeks as patient will need to be anticoagulated due to thrombus. (2) Acute kidney injury: Patient's creatinine 2.65 on admission, now at baseline Avoid nephrotoxic agents. (3) Dark stools: EGD 10/06 with bleeding esophageal ulcer that was clipped Per GI recs: Advance diet as tolerated Protonix drip for 72 hours, then BID thereafter for 3 months will need repeat EGD in no later than 3 months patient can follow up with me in the office 2-3 weeks after discharge (4) Hypokalemia: Replaced (5) Vomiting: Antinausea management with Zofran 4 mg IV every 6 hours as needed (6) Bilateral ureteral obstruction: On CT - Circumferential bladder wall thickening likely indicates chronic bladder outlet obstruction. This is likely accompanied by chronic reflux uropathy and secondary to prostatomegaly. Urology on board (7) Metastatic adenocarcinoma to prostate: Continue monitoring. PSA is improving. Last time PSA was measured on September 16 and it was 0.194, which was significant improvement considering the result of 8.980 in June 2019. Continue Erasmo Fernández DC'd per oncology Consulted oncology (8) Left ventricular thrombus: Diagnosed in early July - patient has had about 2 months of treatment at this point Continue warfarin, heparin gtt for bridge (9) Supratherapeutic INR: On admission, now resolved INR 1.2 Repeat am (10) Thrombocytopathia: Platelets as low as 73,000, now rebounding Peripheral smear: remarkable for a normocytic anemia and thrombocytopenia. HIT panel ordered as it appeared from charting that patient had bridged with Lovenox however according to heme/onc this was incorrect and he did not bridge so is not within a window for HIT and it is appropriate to continue with heparin gtt. Likely secondary to Keflex Consulted heme/onc (11) Urinary tract infection: UC less than 1000 colonies - dc abx (12) Transaminitis: This visit patient had elevated transaminases AST of 190 and ALT of 83 - now trending back down and bili elevation resolved Liver ultrasound with possible hemangioma - per discussion with Oncology patient has had this finding before and can be set up for further imaging after discharge GI on board (13) History of [place] (myocardial infarction): As the above (14) Coronary artery disease: Echo this admission similar to previous: EF 40 -45%, Akinesis and thinning of the mid and apical septum, mid and apical inferior wall, mid anteroseptum and apex, mod left ventricular hypertrophy of the basal anteroseptum. Apical thrombus is now laminated. Previous echo had read his EF as more like 45-50%. (15) Hypertension: Stable, continue lisinopril 20 mg p.o. every morning, continue metoprolol tartrate 25 mg p.o. every morning. Patient with history of [place] 2012 (16) Dyslipidemia: Due to elevated transaminases held atorvastatin - discuss resuming with pcp (17) DVT prophylaxis: SCDs, heparin gtt Subjective Mr. Stren is feeling good today. No further bowel movements. No pain. Continues to have frye colored urine. ROS Constitutional: no chills, aches, sweats or fever Respiratory: no sob,cough, sputum, or wheezing Cardiac: no chest pain, palpitations, edema, orthopnea or lightheadedness GI: no abdominal pain, nausea, vomiting, diarrhea or constipation : no dysuria or hesitancy Extremities: no joint pain or weakness Skin: no rash All other systems reviewed and negative Physical Exam Physical Exam: General: no distress Eyes: normal inspection, PERLL Respiratory: chest non tender, clear to auscultation, normal breath sounds, no respiratory distress, no accessory muscle use Cardiac: regular rate and rhythm, no rub or gallop, no murmur, no edema, no jvd GI/: active bowel sounds, no abd pain or tenderness, soft, non distended Extremities: normal range of motion, normal strength, non tender Neuro/Psych: alert and oriented x 3, normal mood and affect Skin: normal color, dry Results & Data Vital Signs (Past 12 Hours) Vital Signs Temp Pulse Pulse Resp BP BP Pulse Ox 10/07/19 15:36 36.9 C 71 18 132/86 96 10/07/19 11:39 36.7 C 69 20 128/79 96 10/07/19 08:00 70 10/07/19 07:41 36.5 C 76 20 139/87 97 PG Care Time/CCT Total # of Minutes Spent Total Time Spent with Patient: Total time spent is greater than 50% in coordination of care (as documented) at patient's floor/unit and/or counseling patient: Coding Level of Care Code 96328 Subseq Hosp Care Lvl 2 Diagnoses Hematuria R31.9 Hematuria type: unspecified type Acute kidney injury N17.9 Dark stools R19.5 Hypokalemia E87.6 Vomiting R11.2 Nausea presence: with nausea Vomiting Intractability: non-intractable Vomiting type: unspecified Bilateral ureteral obstruction N13.5 Metastatic adenocarcinoma to prostate C79.82 Left ventricular thrombus I51.3 Supratherapeutic INR R79.1 Thrombocytopathia D69.1 Urinary tract infection N39.0 Transaminitis R74.0 History of [place] (myocardial infarction) I25.2 Coronary artery disease I25.10 Hypertension I10 Dyslipidemia E78.5 DVT prophylaxis Z29.9 (1) Hematuria Hematuria type: unspecified type Qualified Code(s): R31.9 - Hematuria, unspecified (2) Vomiting Nausea presence: with nausea Vomiting Intractability: non-intractable Vomiting type: unspecified Qualified Code(s): R11.2 - Nausea with vomiting, unspecified
[2019-10-08] MEDS: PANTOprazole 40 MG in DEXTROSE 5% 100 ML IV SCH ×5 (02:31→21:37)
[2019-10-08 05:42] LABS: Hematocrit (blood only) 33.9 % (42-52); Hemoglobin 11.4 g/dL (14.0-18.0); Mean Corpuscular Hemoglobin 28.6 pg (25-34); Mean Corpuscular Hgb Conc 33.6 g/dL (32-36); Mean Corpuscular Volume 85.2 fL (80-100); Mean Platelet Volume 9.6 fL (7.4-10.4); Platelet Count 178 K/uL (130-400); RDW Coefficient of Variation 13.9 % (11.5-14.5); RDW Standard Deviation 43.1 fL (36.4-46.3); Red Blood Count 3.98 M/uL (4.7-6.1); White Blood Count 4.48 K/uL (4.8-10.8)
[2019-10-08 06:01] LABS: INR 1.9 (0.9-1.1); Prothrombin Time 18.3 Seconds (9.0-12.0)
[2019-10-08 06:03] LABS: Albumin Level 2.3 gm/dl (3.4-5.0); BUN Creatinine Ratio 5.3 (10-20); Calcium 6.9 mg/dl (8.5-10.1); Creatinine Clr Calc Pharmacy 91.4 ml/min; Est GFR (African American) 96.3; Est GFR (Non-African American) 83.1; Potassium 3.1 mmol/L (3.5-5.1)
[2019-10-08 06:06] LABS: Albumin Globulin Ratio 0.7 (0.9-2); Bilirubin,Total 1.1 mg/dl (0.2-1); Globulin 3.5 gm/dl (2.5-4.0); Total Protein 5.8 gm/dl (6.4-8.2)
[2019-10-08 06:09] LABS: Partial Thromboplastin Time 53.8 Seconds (21.0-31.0)
[2019-10-08] MEDS ORDERED: POTASSIUM CHLORIDE 20 MEQ TABCR PO STA (08:07)
[2019-10-08] MEDS: lisinopriL 20 MG TAB PO SCH (08:45)
[2019-10-08] MEDS: METOPROLOL TARTRATE 25 MG TAB PO SCH (08:45)
[2019-10-08] MEDS: ASPIRIN 81 MG ECTAB PO SCH (08:45)
[2019-10-08] MEDS: CHOLECALCIFEROL 1,000 UNITS 25 MCG TAB PO SCH (08:45)
[2019-10-08] MEDS: ATORVASTATIN 40 MG TAB PO SCH (08:46)
[2019-10-08] MEDS: CALCIUM CARBONATE 1250MG TAB PO SCH ×2 (08:46→20:44)
--- NOTE | 2019-10-08 11:22 | Urology Progress Note ---
Date of Service October 08, 2019 Assessment & Plan (1) Hematuria: A/P 64-year-old male with persistent hematuria, prostate cancer, indwelling stent. Findings reviewed with patient. His persistent hematuria and bothersome lower urinary tract symptoms are not unexpected in the context of his recent surgery, prostate cancer and indwelling stent. Patient requests a repeat urine culture today - we will order, although I expect that the majority of his symptoms are due to his intervention as noted above. Will have to tolerate a certain degree of hematuria to allow the patient to be effectively anticoagulated in the context of his left ventricular thrombosis. Outpatient appointment with Dr. Alexandre is in place, would have the patient follow as scheduled. Patient vocalizes good understanding of the treatment plan. Thank you for allowing us to participate in this patient's care. Please recall our service as needed for any further questions or concerns. (2) Metastatic adenocarcinoma to prostate: Subjective 64-year-old male with a history of aggressive prostate cancer postoperative day #9 status post resection of bladder neck and ureteral stent exchange with persistent hematuria. Patient reports that he has been voiding with hematuria since he was last seen by our service and [place] catheter was removed. He denies clots or clot retention being present. He remains on a heparin drip as well as Coumadin is being titrated. He does note some suprapubic pressure which he has associated with a urinary tract infection in the past. Last urine culture from 5 days ago demonstrated no growth. He complains of a certain amount of stent irritation, within the normal limits. Past urologic notes and hospitalist notes are reviewed. Review of Systems Constitutional: no fever and no chills Eyes: no diplopia Ear, Nose, Mouth, Throat: no ear trauma Respiratory: no hemoptysis Cardiovascular: no chest pain Gastrointestinal: + abdominal pain (Suprapubic); no nausea and no vomiting Genitourinary: + hematuria Integumentary: no acne and no boil Neurologic: no paralysis Psychiatric: no hopelessness Hematologic / Lymphatic: + easy bleeding Allergy / Immunological: no tongue swelling Physical Exam Constitutional: well developed and well nourished; no acute distress Eyes: eyes not dysmorphic ENMT: Ears: no external ear abnormality Neck: trachea midline; no anterior neck swelling Respiratory: no respiratory distress and does not use accessory muscles Cardiovascular: Vessels: radial pulses present Gastrointestinal (Abdomen): Inspection/Auscultation: abdomen not distended Percussion/Palpation: abdomen soft; abdomen nontender Musculoskeletal: Head/Neck/Chest: normocephalic and neck supple Skin: normal turgor Neurologic: awake; not obtunded Psychiatric: Orientation: oriented x 3 Lymphatic: no lymphadenopathy Results & Data Vital Signs (Past 12 Hours) Vital Signs Temp Pulse Pulse Resp BP BP Pulse Ox 10/08/19 07:38 36.8 C 79 16 137/88 97 10/08/19 07:31 85 10/08/19 04:25 36.9 C 85 17 133/79 96 10/08/19 00:14 73 10/07/19 23:48 37.5 C 78 17 138/85 96 Laboratory Results Laboratory Results - last 48 hr 10/04/19 10/07/19 10/07/19 18:42 02:59 02:59 WBC 4.41 L RBC 3.84 L Hgb 11.2 L Hct 33.0 L MCV 85.9 MCH 29.2 MCHC 33.9 RDW Std Deviation 44.2 RDW Coeff of Kurtis 14.1 Plt Count 131 MPV 9.6 PT INR APTT PTT Ratio Sodium 138 Potassium 3.3 L Chloride 111 H Carbon Dioxide 21 Anion Gap 6.0 BUN 6 L Creatinine 0.95 Est Cr Clr Drug Dosing 92.0 Est GFR ( Amer) 96.3 Est GFR (Non-Af Amer) 83.1 BUN/Creatinine Ratio 6.7 L Glucose 92 Calcium 6.7 L Total Bilirubin 1.1 H AST 40 H ALT 37 Alkaline Phosphatase 76 Total Protein 5.6 L Albumin 2.1 L Globulin 3.5 Albumin/Globulin Ratio 0.6 L SALLY UFH Low Dose 0.1 0 SALLY UFH Low Dose 0.5 0 SALLY UFH High Dose 0 SALLY Unfract Heparin Negative 10/07/19 10/07/19 10/08/19 02:59 10:38 05:16 WBC 4.48 L RBC 3.98 L Hgb 11.4 L Hct 33.9 L MCV 85.2 MCH 28.6 MCHC 33.6 RDW Std Deviation 43.1 RDW Coeff of Kurtis 13.9 Plt Count 178 MPV 9.6 PT INR APTT 41.7 H 57.8 H* PTT Ratio 1.5 2.1 Sodium Potassium Chloride Carbon Dioxide Anion Gap BUN Creatinine Est Cr Clr Drug Dosing Est GFR ( Amer) Est GFR (Non-Af Amer) BUN/Creatinine Ratio Glucose Calcium Total Bilirubin AST ALT Alkaline Phosphatase Total Protein Albumin Globulin Albumin/Globulin Ratio SALLY UFH Low Dose 0.1 SALLY UFH Low Dose 0.5 SALLY UFH High Dose SALLY Unfract Heparin 10/08/19 10/08/19 05:16 05:16 WBC RBC Hgb Hct MCV MCH MCHC RDW Std Deviation RDW Coeff of Kurtis Plt Count MPV PT 18.3 H INR 1.9 H APTT 53.8 H* PTT Ratio 2.0 Sodium 137 Potassium 3.1 L Chloride 109 H Carbon Dioxide 22 Anion Gap 6.0 BUN 5 L Creatinine 0.95 Est Cr Clr Drug Dosing 91.4 Est GFR ( Amer) 96.3 Est GFR (Non-Af Amer) 83.1 BUN/Creatinine Ratio 5.3 L Glucose 102 H Calcium 6.9 L Total Bilirubin 1.1 H AST 38 H ALT 41 Alkaline Phosphatase 83 Total Protein 5.8 L Albumin 2.3 L Globulin 3.5 Albumin/Globulin Ratio 0.7 L SALLY UFH Low Dose 0.1 SALLY UFH Low Dose 0.5 SALLY UFH High Dose SALLY Unfract Heparin PG Care Time/CCT Total # of Minutes Spent Total Time Spent with Patient: Total time spent is greater than 50% in coordination of care (as documented) at patient's floor/unit and/or counseling patient: Coding Level of Care Code 25962 Subseq Hosp Care Lvl 2 Diagnoses Hematuria R31.9 Hematuria type: unspecified type Metastatic adenocarcinoma to prostate C79.82 (1) Hematuria Hematuria type: unspecified type Qualified Code(s): R31.9 - Hematuria, unspecified
[2019-10-08] MEDS: NYSTATIN SUSP 500,000 U/5 ML UDC PO SCH ×3 (12:26→20:44)
--- NOTE | 2019-10-08 12:26 | Hospitalist Progress Note ---
Date of Service October 08, 2019 Assessment & Plan (1) Hematuria: Postprocedural bleeding/hematuria due to bilateral ureteral stent removal and left sided replacement as well as resection of bladder head, a complication of care. Hgb has been stable Given vitamin K 5 mg IV in the ER for supratherapeutic INR of 5.6 Consulted urology - they feel that the hematuria is an expected result of his recent procedures and could be expected to persist up to 6 weeks. Resumed warfarin 10/06, discontinue heparin drip to bridge. Will likely have tolerate some amount of hematuria for the next few weeks as patient will need to be anticoagulated due to thrombus. (2) Acute kidney injury: Patient's creatinine 2.65 on admission, now at baseline Avoid nephrotoxic agents. (3) Dark stools: EGD 10/06 with bleeding esophageal ulcer that was clipped Per GI recs: Advance diet as tolerated Protonix drip for 72 hours, then BID thereafter for 3 months will need repeat EGD in no later than 3 months patient can follow up with me in the office 2-3 weeks after discharge (4) Hypokalemia: Potassium 3.1 today - Replaced (5) Vomiting: Antinausea management with Zofran 4 mg IV every 6 hours as needed (6) Bilateral ureteral obstruction: On CT - Circumferential bladder wall thickening likely indicates chronic bladder outlet obstruction. This is likely accompanied by chronic reflux uropathy and secondary to prostatomegaly. Urology on board (7) Metastatic adenocarcinoma to prostate: Continue monitoring. PSA is improving. Last time PSA was measured on September 16 and it was 0.194, which was significant improvement considering the result of 8.980 in June 2019. Continue Erasmo Fernández DC'd per oncology Consulted oncology (8) Left ventricular thrombus: Diagnosed in early July - patient has had about 2 months of treatment at this point Continue warfarin, will discontinue heparin gtt for bridge as INR is 1.9 (9) Supratherapeutic INR: On admission, now resolved (10) Thrombocytopathia: Platelets as low as 73,000, now resolved Peripheral smear: remarkable for a normocytic anemia and thrombocytopenia. HIT panel ordered as it appeared from charting that patient had bridged with Lovenox however according to heme/onc this was incorrect and he did not bridge so is not within a window for HIT and it is appropriate to continue with heparin gtt. Likely secondary to Keflex Consulted heme/onc (11) Urinary tract infection: UC less than 1000 colonies - dc'd abx (12) Transaminitis: This visit patient had elevated transaminases AST of 190 and ALT of 83 - now trending back down Liver ultrasound with possible hemangioma - per discussion with Oncology patient has had this finding before and can be set up for further imaging after discharge GI on board (13) History of [place] (myocardial infarction): As the above (14) Coronary artery disease: Echo this admission similar to previous: EF 40 -45%, Akinesis and thinning of the mid and apical septum, mid and apical inferior wall, mid anteroseptum and apex, mod left ventricular hypertrophy of the basal anteroseptum. Apical thrombus is now laminated. Previous echo had read his EF as more like 45-50%. (15) Hypertension: Stable, continue lisinopril 20 mg p.o. every morning, continue metoprolol tartrate 25 mg p.o. every morning. Patient with history of [place] 2012 (16) Dyslipidemia: Due to elevated transaminases held atorvastatin - discuss resuming with pcp (17) Thrush: Nystatin swish and swallow (18) DVT prophylaxis: SCDs, warfarin Subjective Mr. Stern has no complaints. He continues to have blood in his urine, no clots. No further bowel movements. He is not having any pain. He is complaining of sores in his mouth ROS Constitutional: no chills, aches, sweats or fever Respiratory: no sob,cough, sputum, or wheezing Cardiac: no chest pain, palpitations, edema, orthopnea or lightheadedness GI: no abdominal pain, nausea, vomiting, diarrhea or constipation : no dysuria or hesitancy Extremities: no joint pain or weakness Skin: no rash All other systems reviewed and negative Physical Exam Physical Exam: General: no distress EENT: white exudate on sides of tongue Eyes: normal inspection, PERLL Respiratory: chest non tender, clear to auscultation, normal breath sounds, no respiratory distress, no accessory muscle use Cardiac: regular rate and rhythm, no rub or gallop, no murmur, no edema, no jvd GI/: active bowel sounds, no abd pain or tenderness, soft, non distended Extremities: normal range of motion, normal strength, non tender Neuro/Psych: alert and oriented x 3, normal mood and affect Skin: normal color, dry Results & Data Vital Signs (Past 12 Hours) Vital Signs Temp Pulse Pulse Resp BP BP Pulse Ox 10/08/19 11:51 36.7 C 74 18 121/78 96 10/08/19 07:38 36.8 C 79 16 137/88 97 10/08/19 07:31 85 10/08/19 04:25 36.9 C 85 17 133/79 96 PG Care Time/CCT Total # of Minutes Spent Total Time Spent with Patient: Total time spent is greater than 50% in coordination of care (as documented) at patient's floor/unit and/or counseling patient: Coding Level of Care Code 36682 Subseq Hosp Care Lvl 3 Diagnoses Hematuria R31.9 Hematuria type: unspecified type Acute kidney injury N17.9 Dark stools R19.5 Hypokalemia E87.6 Vomiting R11.2 Nausea presence: with nausea Vomiting Intractability: non-intractable Vomiting type: unspecified Bilateral ureteral obstruction N13.5 Metastatic adenocarcinoma to prostate C79.82 Left ventricular thrombus I51.3 Supratherapeutic INR R79.1 Thrombocytopathia D69.1 Urinary tract infection N39.0 Transaminitis R74.0 History of [place] (myocardial infarction) I25.2 Coronary artery disease I25.10 Hypertension I10 Dyslipidemia E78.5 Thrush B37.0 DVT prophylaxis Z29.9 (1) Hematuria Hematuria type: unspecified type Qualified Code(s): R31.9 - Hematuria, unspecified (2) Vomiting Nausea presence: with nausea Vomiting Intractability: non-intractable Vomiting type: unspecified Qualified Code(s): R11.2 - Nausea with vomiting, unspecified
[2019-10-08] MEDS: predniSONE 5 MG TAB PO SCH (14:39)
[2019-10-08] MEDS: WARFARIN SOD 5 MG TAB PO SCH (15:54)
[2019-10-08] MEDS: ABIRATERONE ACETATE PO SCH (15:55)
[2019-10-09] MEDS: PANTOprazole 40 MG in DEXTROSE 5% 100 ML IV SCH ×3 (02:08→12:26)
[2019-10-09 05:48] LABS: Hemoglobin 11.3 g/dL (14.0-18.0); Mean Corpuscular Hemoglobin 28.5 pg (25-34); Mean Corpuscular Hgb Conc 33.2 g/dL (32-36); Mean Corpuscular Volume 85.6 fL (80-100); Mean Platelet Volume 9.5 fL (7.4-10.4); Platelet Count 190 K/uL (130-400); RDW Coefficient of Variation 14.1 % (11.5-14.5); RDW Standard Deviation 44.1 fL (36.4-46.3); Red Blood Count 3.97 M/uL (4.7-6.1)
[2019-10-09 05:57] LABS: INR 2.9 (0.9-1.1); Prothrombin Time 27.7 Seconds (9.0-12.0)
[2019-10-09] MEDS: ATORVASTATIN 40 MG TAB PO SCH (08:09)
[2019-10-09] MEDS: lisinopriL 20 MG TAB PO SCH (08:09)
[2019-10-09] MEDS: ASPIRIN 81 MG ECTAB PO SCH (08:09)
[2019-10-09] MEDS: NYSTATIN SUSP 500,000 U/5 ML UDC PO SCH ×2 (08:09→12:54)
[2019-10-09] MEDS: CHOLECALCIFEROL 1,000 UNITS 25 MCG TAB PO SCH (08:10)
[2019-10-09] MEDS: CALCIUM CARBONATE 1250MG TAB PO SCH (08:10)
[2019-10-09] MEDS: METOPROLOL TARTRATE 25 MG TAB PO SCH (08:10)
[2019-10-09] MEDS ORDERED: PANTOprazole 40 MG TAB PO SCH (09:00)
[2019-10-09] MEDS: predniSONE 5 MG TAB PO SCH (09:05)
[2019-10-09 09:06] LABS: Albumin Globulin Ratio 0.6 (0.9-2); Albumin Level 2.4 gm/dl (3.4-5.0); BUN Creatinine Ratio 6.2 (10-20); Bilirubin,Total 1.1 mg/dl (0.2-1); Calcium 6.9 mg/dl (8.5-10.1); Est GFR (African American) 102.8; Est GFR (Non-African American) 88.7; Globulin 3.7 gm/dl (2.5-4.0); Potassium 3.3 mmol/L (3.5-5.1); Total Protein 6.1 gm/dl (6.4-8.2)
[2019-10-09] MEDS ORDERED: POTASSIUM CHLORIDE 20 MEQ TABCR PO STA (09:36)
--- NOTE | 2019-10-09 10:51 | Discharge Summary ---
Date of Service October 09, 2019 Admission HPI Per Admitting Provider Patient is a 64 years old male with past medical history of hypertension, dyslipidemia, coronary artery disease, history of TX, metastatic adenocarcinoma of the prostate, bilateral ureteral obstruction who presents to the emergency financial bladder wall thickening s/p replacement of the ureteral stent on September 29, 2019 who complains of generalized dizziness and gross hematuria. Patient was seen and September 29 for bilateral ureteral obstruction associated with prostate cancer and cystoscopy, bilateral retrograde, right stent removal, left ureteral stent exchange, transurethral resection of prostate/bladder neck, direct visualization of the internal urethrotomy (maral) was done. Patient was started on Keflex 500 mg twice daily for 10 days.Patient is on warfarin for left ventricular thrombus. Labs are reviewed: WBC is 6.43, hemoglobin 12.3, hematocrit 35.7, platelets 118.7, PT 51.1, INR 5.6 supratherapeutic, sodium 137, potassium 2.9, chloride 108, carbon dioxide 20, anion gap 9, BUN 39, creatinine 2.65, GFR 24, calcium 8.4, total bilirubin 1.2, AST 190, ALT 83, alkaline phosphatase 87, albumin 3, globulin 4.2, prostate-specific antigen 0.194. Urine cloudy, RBCs over 30 WBCs over 30 and epithelial cells 5-10. Abdomen CT and pelvis without contrast shows multifocal sclerotic osseous lesion, which are largely stable from the prior exam through increasingly sclerotic. This may represent posttreatment change of underlying osseous metastatic disease. Circumferential bladder wall thickening likely indicate chronic bladder outlet obstruction. This is likely accompanied by chronic reflux uropathy and secondary to prostatomegaly. Left ureteral stent in place with a flaccid left renal collecting system.No evidence of hydronephrosis. Inflammatory changes of the left renal collecting system are most likely reactive to the presence of the stent. Correlate with urine analysis to exclude upper tract infection. No gross evidence of an obstructing calculus. Limited evaluation for underlying neoplasm. Diverticulosis Lynda. No diverticulitis. Cholelithiasis. Decision was made to admit patient to [facility] on telemetry for hematuria, urinary tract infection and acute kidney insufficiency. Principal Diagnosis Hematuria, GI bleed Discharge Exam Constitutional WD/WN, vitals as above Respiratory normal respiratory effort, lungs clear to auscultation Cardiovascular RRR, no murmur, no edema Gastrointestinal (Abdomen) Inspection/Auscultation: abdomen normal to inspection and normal bowel sounds; abdomen not distended Percussion/Palpation: abdomen soft; abdomen nontender Musculoskeletal no cyanosis or clubbing, extremities motor strength 5/5 Skin no rashes, warm and dry Neurologic moves all extremities and awake Psychiatric A+Ox3, euthymic affect Discharge Data Allergies Allergy/AdvReac Type Severity Reaction Status Date / Time No Known Allergies Allergy Verified 10/03/19 11:53 Consultations 10/03/19 13:13 ED Decision to Admit Stat 10/03/19 17:58 Consult Urology Routine 10/04/19 11:05 Consult Oncology Routine 10/04/19 12:07 Consult Gastroenterology Routine Procedures Performed Operation Date: 10/06/19 16:00 Actual Procedures p EGD Hemostasis - Delonte Collazo MD Ordered Studies 10/03/19 12:25 CT abd pelvis wo con Stat 10/04/19 00:07 US liver Routine Hospital Course (1) Hematuria: Postprocedural bleeding/hematuria due to bilateral ureteral stent removal and left sided replacement as well as resection of bladder head, a complication of care. Hgb has been stable for many days Given vitamin K 5 mg IV in the ER for supratherapeutic INR of 5.6 Consulted urology - they feel that the hematuria is an expected result of his recent procedures and could be expected to persist up to 6 weeks. Resumed warfarin 10/06, discontinued heparin drip to bridge. Will likely have tolerate some amount of hematuria for the next few weeks as patient will need to be anticoagulated due to thrombus. (2) Acute kidney injury: Patient's creatinine 2.65 on admission, now at baseline Avoid nephrotoxic agents. (3) Dark stools: EGD 10/06 with bleeding esophageal ulcer that was clipped Per GI recs: Advance diet as tolerated Protonix drip for 72 hours, then BID thereafter for 3 months will need repeat EGD in no later than 3 months patient can follow up with Dr. Collazo in the office 2-3 weeks after discharge (4) Hypokalemia: Potassium 3.2 today - Replaced will have patient take 30 mEq potassium po for a 1 week while he recovers from GI bleed and appetite is reduced. (5) Vomiting: Antinausea management with Zofran 4 mg IV every 6 hours as needed (6) Bilateral ureteral obstruction: On CT - Circumferential bladder wall thickening likely indicates chronic bladder outlet obstruction. This is likely accompanied by chronic reflux uropathy and secondary to prostatomegaly. Urology on board (7) Metastatic adenocarcinoma to prostate: Continue monitoring. PSA is improving. Last time PSA was measured on September 16 and it was 0.194, which was significant improvement considering the result of 8.980 in June 2019. Continue Zytiga, Casodex DC'd per oncology. Patient will need to remain on 5mg of prednisone while on Zytiga Consulted oncology (8) Left ventricular thrombus: Diagnosed in early July - patient has had about 2 months of treatment at this point Continue warfarin, repeat INR on Thursday INR today was 2.9 - reduced Coumadin dosing from 5mg back to patient's normal regimen of 2 mg (9) Supratherapeutic INR: On admission, now resolved (10) Thrombocytopathia: Platelets as low as 73,000, now resolved Peripheral smear: remarkable for a normocytic anemia and thrombocytopenia. HIT panel ordered as it appeared from charting that patient had bridged with Lovenox however according to heme/onc this was incorrect and he did not bridge so is not within a window for HIT and it is appropriate to continue with heparin gtt. Likely secondary to Keflex Consulted heme/onc (11) Urinary tract infection: UC less than 1000 colonies - dc'd abx Repeat culture pending (12) Transaminitis: This visit patient had elevated transaminases AST of 190 and ALT of 83 - now trending back down Liver ultrasound with possible hemangioma - per discussion with Oncology patient has had this finding before and can be set up for further imaging after discharge Statin held however per oncology note this may be secondary to Zytiga as well and he may need a dose reduction. He has been receiving the Zytiga his whole stay here at the hospital and his LFTs have been trending down. May need to decide how to procede with statin and Zytiga going forward. (13) History of TX (myocardial infarction): As the above (14) Coronary artery disease: Echo this admission similar to previous: EF 40 -45%, Akinesis and thinning of the mid and apical septum, mid and apical inferior wall, mid anteroseptum and apex, mod left ventricular hypertrophy of the basal anteroseptum. Apical thrombus is now laminated. Previous echo had read his EF as more like 45-50%. (15) Hypertension: Stable, continue lisinopril 20 mg p.o. every morning, continue metoprolol tartrate 25 mg p.o. every morning. Patient with history of TX 2012 (16) Dyslipidemia: Due to elevated transaminases held atorvastatin - discuss resuming with pcp and oncology (17) Thrush: Secondary to recent abx Nystatin swish and swallow qid x 2 weeks (18) DVT prophylaxis: SCDs, warfarin (19) Hypocalcemia: With low albumin Ca corrects to 8.2 Continue BID calcium oral supplementation Total Time Total Time Spent Total Time Spent (In Minutes): greater than 30 minutes Discharge Plan Discharge Items Patient Disposition: Home - Self-Care Reason For Visit: HEMATURIA Discharge Diagnosis: Hematuria, GI bleed Activity: Resume your previous activity Activity Comment: gradually as tolerated Non-emergency contact: Primary Care Provider Call non-emergency contact if: you have any medication questions, your symptoms worsen and you have a fever Follow-up/Referrals: Randa Pyle DO [Primary Care Provider] - Diet: Heart Healthy Ambulatory Orders: Prothrombin Time INR (Routine) Timeframe: [id number] Location: Determined by Patient Ordered By: Lana Baldwin Attending Provider Instructions: (1) Hematuria (blood in the urine): Postprocedural bleeding/hematuria due to bilateral ureteral stent removal and left sided replacement as well as resection of bladder neck Your blood count has been stable Hematuria is an expected result of your recent procedures and could be expected to persist up to 6 weeks. Please follow up with urology and keep your next appointment with Dr. Alexandre (2) Acute kidney injury: Your creatinine was 2.65 on admission but is now baseline at 0.92 (3) Dark stools: You had an endoscopy performed 10/06 which showed - Medium-sized hiatal hernia. - Bleeding esophageal ulcer. Injected. Clips were placed. - Normal stomach and portion of the small intestine viewed You can advance your diet as tolerated You were kept on a Protonix drip for 72 hours, afterwards you will change to pantoprazole (Protonix) twice per day for 3 months You will need repeat the endoscopy in no later than 3 months Please follow up with Dr. Collazo in the office 2-3 weeks after discharge (4) Hypokalemia (low potassium): Your potassium has been running low, likely due to poor nutritional intake. Please take the prescribed potassium supplement for the next week. If you feel you are back to your normal intake earlier than that you can discontinue taking the potassium. Follow up with your primary care provider (5) Metastatic adenocarcinoma to prostate: PSA is improving. Last time PSA was measured on September 16 and it was 0.194, which was significant improvement considering the result of 8.980 in June 2019. Continue Zytiga, Casodex discontinued per oncology You will need to take prednisone as long as you are taking arbiterone (Zytiga) because arbiterone suppresses your bodies natural steroid producing ability (6) Left ventricular thrombus: Continue warfarin Please have your INR drawn on Thursday and follow up with either your primary care provider or the Coumadin clinic concerning the result and any necessary dose changes of your warfarin (7) Supratherapeutic INR: On admission, now resolved (8) Thrombocytopenia: Platelets as low as 73,000, now resolved This was likely a side effect of taking cephalexin (Keflex). Please discuss this with your providers should you be prescribed this medication in the future (9) Urinary tract infection: Your in initial urine culture was negative. A repeat culture grew sandi which is a fungal species. This usually indicates colonization but not infection (10) Transaminitis (elevated liver function tests): Elevated transaminases AST of 190 and ALT of 83 - now trending back down Liver ultrasound with possible hemangioma - per discussion with Oncology this f inding was seen previously and you can be set up for further imaging after discharge when you follow up with Oncology Please hold your atorvastatin until you follow up with your primary care provider and oncology to discuss whether to resume. (11) Coronary artery disease: Your echocardiogram this admission similar to previous. (12) Hypertension: Stable, continue lisinopril 20 mg p.o. every morning, continue metoprolol tartrate 25 mg p.o. every morning. (13) Dyslipidemia: Due to elevated transaminases held atorvastatin - discuss resuming with primary care provider and oncology (14) Thrush: Nystatin swish and swallow four times per day for two weeks. (15) Hypocalcemia (low calcium level) Please continue taking the prescribed calcium supplement as your calcium was running low while you were in the hospital. Please follow up with your primary care provider in about a week Pending Studies at Discharge: No Stand-Alone Forms: My [facility], Smoking Cessation Medications and DC Order Prescriptions: New nystatin 100,000 unit/mL Suspension 5 ml PO QID Qty: 52 RF: 0 prednisone 5 mg Tablet 5 mg PO DAILY Qty: 30 RF: 1 calcium carbonate [Oyster Shell Calcium 500] 500 mg calcium (1,250 mg) Tablet 1,250 mg PO BID Qty: 60 RF: 3 pantoprazole 40 mg Tablet,Delayed Release (Dr/Ec) 40 mg PO BID Qty: 60 RF: 3 Klor-Con M15 15 mEq tablet,ER particles/crystals 15 meq PO BID Qty: 14 RF: 0 Continued lisinopril 10 mg tablet 20 mg PO QAM RF: 0 sildenafil [Viagra] 50 mg tablet 50 mg PO DAILY PRN (Reason: before sex) RF: 0 Lupron Depot (4 month) 30 mg syringe kit 30 mg IM Q16W RF: 0 Xgeva 120 mg/1.7 mL (70 mg/mL) solution 120 mg SQ MONTHLY RF: 0 warfarin [Coumadin] 2 mg tablet 2 mg PO UD RF: 0 metoprolol tartrate 25 mg Tablet 25 mg PO QAM RF: 0 aspirin 81 mg tablet,delayed release (DR/EC) 81 mg PO QAM RF: 0 cholecalciferol (vitamin D3) [Vitamin D3] 2,000 unit capsule 2,000 units PO QAM RF: 0 abiraterone [Zytiga] 250 mg Tablet 1,000 mg PO DAILY@1500 RF: 0 oxycodone-acetaminophen [Percocet] 7.5-325 mg tablet 1 tab PO Q8H PRN (Reason: pain) Qty: 7 RF: 0 Discontinued atorvastatin 80 mg tablet 80 mg PO QAM RF: 0 bicalutamide [Casodex] 50 mg tablet 50 mg PO QAM RF: 0 sulfamethoxazole-trimethoprim 800-160 mg Tablet 1 tab PO BID RF: 0 cephalexin [Keflex] 500 mg capsule 500 mg PO BID Qty: 10 RF: 0 Discharge Orders: Discharge Order (Routine); Ordered 10/09/19 Ordered By: Lana Good Admission Data Admit Date/Time: 10/03/19 16:10 Attending Provider: Bob Bernard Admit Provider: Starr Darby Primary Care Provider: Randa Pyle Other Providers: Job Bernard I. ; Bob Bernard ; Dane Lindo ; Jovan Giron Other Interventions: Discharge Summary Assessment (RN) Last Done: 10/09/19 13:37 Supervising Physician Co-Signing Physician Notes I supervised Lana Good NP on this patient's care. I examined the patient today independently of her. I discussed the plan of care with her with the plan being as written in her note except for any following changes/exceptions: None. In no distress this afternoon. Doing well and ready to go home. Will finish his pantoprazole gtt and follow up with oncology as an outpatient. Coding Level of Care Code D/C Day Management >30 mins Diagnoses Hematuria R31.9 Hematuria type: unspecified type Acute kidney injury N17.9 Dark stools R19.5 Hypokalemia E87.6 Vomiting R11.2 Nausea presence: with nausea Vomiting Intractability: non-intractable Vomiting type: unspecified Bilateral ureteral obstruction N13.5 Metastatic adenocarcinoma to prostate C79.82 Left ventricular thrombus I51.3 Supratherapeutic INR R79.1 Thrombocytopathia D69.1 Urinary tract infection N39.0 Transaminitis R74.0 History of TX (myocardial infarction) I25.2 Coronary artery disease I25.10 Hypertension I10 Dyslipidemia E78.5 Thrush B37.0 DVT prophylaxis Z29.9 Hypocalcemia E83.51
[2019-10-09] MEDS: ABIRATERONE ACETATE PO SCH (15:09)
[2019-10-09] MEDS ORDERED: WARFARIN SOD 2 MG TAB PO SCH (16:00)
== END 2019-10-09 15:50 | disposition home or self-care (01) | DRG 919 ==
LOC: ED 10:27 → 2N 16:10 → SUATTDRO 16:10 → 2N 17:33